=== PATIENT | male | born 1970 | race Caucasian/White ===

== ENCOUNTER 2023-08-29 14:37 | Outpatient (CLI) | payer BC, SELFPAY ==
[2023-08-29 16:05] LABS: Alanine Aminotransferase 38 U/L (6-50); Albumin Level 4.5 g/dL (3.5-5.1); Alkaline Phosphatase 89 U/L (38-126); Anion Gap 6 mmol/L (8-16); Aspartate Amino Transferase 43 U/L (17-59); Bilirubin,Total 1.5 mg/dL (0.2-1.3); Blood Urea Nitrogen 10 mg/dL (9-20); Calcium 9.6 mg/dL (8.4-10.2); Carbon Dioxide 31 mmol/L (22-30); Chloride 97 mmol/L (98-107); Cholesterol 179 mg/dL (0-200); Estimated Glomerular Filt Rate > 60; Glucose 289 mg/dL (65-110); HDL Direct 34 mg/dL; Potassium 3.9 mmol/L (3.4-5.0); Sodium 134 mmol/L (137-145); Triglycerides 337 mg/dL (<150)
[2023-08-29 16:16] LABS: LDL Cholesterol Direct 110 mg/dL
[2023-08-29 16:19] LABS: Basophils Absolute Auto 0.1 K/mm3 (0.0-0.1); Basophils Percent Auto 0.7 % (0.2-1.2); Eosinophils Absolute Auto 0.1 K/mm3 (0-0.3); Eosinophils Percent Auto 1.4 % (0-4.4); Hematocrit 50.1 % (42.0-52.0); Hemoglobin 17.4 g/dL (14.0-18.0); Immature Granulocyte Absolute 0.03 K/mm3 (0.00-0.031); Immature Granulocyte Percent A 0.4 % (0-0.5); Lymphocytes Absolute Auto 1.54 K/mm3 (0.9-3.2); Lymphocytes Percent Auto 21.4 % (18.3-44.2); Mean Corpuscular HGB Conc 34.7 g/dl (32-36); Mean Corpuscular Hemoglobin 29.7 pg (26-34); Mean Corpuscular Volume 85.5 fl (80-100); Mean Platelet Volume 10.7 fl (7.4-10.4); Monocytes Absolute Auto 0.4 K/mm3 (0.1-0.6); Monocytes Percent Auto 5.8 % (2.6-8.5); Neutrophils Absolute Auto 5.1 K/mm3 (1.3-6.7); Neutrophils Percent Auto 70.3 % (45.5-73.1); Platelet Count Result 162 k/mm3 (150-375); Red Blood Count 5.86 M/mm3 (4.6-6.20); Red Cell Distribution Width 12.3 % (11.5-14.5); White Blood Count 7.2 K/mm3 (4.5-10.0)
[2023-08-29 16:46] LABS: Hemoglobin A1C 9.7 % (<5.7)
== END 2023-08-29 14:38 | disposition home or self-care (01) ==
PROVIDERS: PCP Emergency Medicine; Visit Provider Emergency Medicine
DX: E66.9 Obesity, unspecified (principal); I10 Essential (primary) hypertension; R20.2 Paresthesia of skin; M54.50 Low back pain, unspecified
CPT/HCPCS: 36415; 80053; 80061; 82607; 83036; 85025

== ENCOUNTER 2023-08-29 14:57 | Outpatient (CLI) | payer BC, SELFPAY ==
--- NOTE | ~2023-08-29 | XR_ITS ---
Lumbosacral Spine: AP, oblique, and lateral views Clinical History: Pain Findings: The normal lordotic curve is maintained. The vertebral bodies and posterior elements are i ntact. The intervertebral disc spaces are preserved. The sacroiliac joints are normally outlined. Impression: No significant abnormality. Reviewed, dictated and finalized at [facility]. [facility] Impression: No significant abnormality.
== END 2023-08-29 14:58 ==
PROVIDERS: PCP Emergency Medicine; Visit Provider Emergency Medicine
DX: M54.41 Lumbago with sciatica, right side (principal)
CPT/HCPCS: 72110

== ENCOUNTER 2023-09-13 14:22 | Outpatient (CLI) | payer BC, SELFPAY ==
[2023-09-13 19:21] LABS: Creatinine Urine 29.9 mg/dL
[2023-09-13 19:27] LABS: Microalbumin Urine Random 33.5 mg/L (0-16.7)
== END 2023-09-13 14:23 | disposition home or self-care (01) ==
LOC: ANHGOSHLAB 14:23
PROVIDERS: PCP Emergency Medicine; Visit Provider Emergency Medicine
DX: E11.40 Type 2 diabetes mellitus with diabetic neuropathy, unspecified (principal)
CPT/HCPCS: 82043

== ENCOUNTER 2023-10-09 15:30 | Outpatient (RCR) | payer BC, SELFPAY ==
--- NOTE | 2023-09-05 16:51 | OPREHPOC ---
Outpatient Therapy Plan of Care This is a Multidisciplinary Plan of Care that may contain components documented by all disciplines (PT, OT, and ST.) PT Problem 1 PT Problem #1 Knowledge Deficit PT Goal 1 Goal Pt to be IND with issued HEP Target Visit 8 PT Problem 2 PT Problem #2 Pain PT Goal 1 Goal Pt to report pain no greater than 3/10 in the last week. Target Visit 8 PT Goal 2 Goal Pt to report 75% improvement in overall symptoms. Target Visit 8 PT Problem 3 PT Problem #3 Impaired Functional Mobil PT Goal 1 Goal Pt to demonstrates 30lb lift and carry without an increase in pain or compensations. Target Visit 8
--- NOTE | 2023-09-05 16:51 | PTOPEVAL1 ---
Assessment and note entered by Gayathri Bennett, PT, DPT Evaluation Information Assessment Status Evaluation Diagnosis R sided lumbar radiculopathy Onset December Subjective Information Pt reports he had lower lumbar back pain that started in December, he states this progressed to his R buttock. At times he has had his entire R leg go numb. He states without as much pain, his R leg is still numb most of the time. He states it does not feel like his truly limited it just feels like his R leg is a lot heavier. Going up and down stairs is the worst. Reported Pain Level Pain Score 2: Self Report Assessment PT Clinical Summary Sergio presents to therapy today for his initial evaluation with a diagnosis of R sided sciatic pain. Today he demonstrates lumbar paraspinal tightness with palpable muscle spasms, piriformis tightness, and a positive neural tension test. He demonstrates decreased body awareness with functional movement tasks. Skilled therapy services are indicated to address the deficits noted above, to improve movement mechanics, and to return to PLOF. Plan of Care Interventions Electrical Stimulation,Gait Training,Hot Pack/Cold Pack,Manual Therapy,Neuro Re-education,Patient/ Caregiver Educati,Therapeutic Activities, Therapeutic Exercise PT Services Indicated Yes Treatment Frequency and 2x/wk for 8 visits Duration These treatments will address the objective and functional deficits as defined above. The patient will be advanced safely and appropriately in order for the patient to progress towards his/her prior level of function. Additional exercises will be introduced and as well as a comprehensive home exercise program upon discharge, if needed, ?to ensure carryover of functional gains achieved in the clinic. This treatment plan has been reviewed and agreement upon by the patient.
--- NOTE | 2023-09-11 14:17 | PCPTNOTE ---
Patient called to cancel today's appointment.
--- NOTE | 2023-09-18 15:51 | PCPTNOTE ---
Patient cancelled due to ill.
--- NOTE | 2023-09-30 15:36 | PCPTNOTE ---
Patient cancelled due to work schedule conflict
--- NOTE | 2023-10-09 16:26 | PTOPDC ---
Assessment and note entered by Gayathri Bennett, PT, DPT Evaluation Information Assessment Status discharge Diagnosis R sided lumbar radiculopathy Onset December Subjective Information Pt states he is getting his exercises done about 2 times a week. He states he is starting to get feeling back in his R foot but it is not 100%. He reports 60-70% improvement in overall symptoms since starting therapy. He reports pain now only when climbing stairs. Reported Pain Level Pain Score 0: Self Report Assessment PT Clinical Summary Sergio presents to therapy today for his progress report following 5 visits of skilled therapy to treat his diagnosis of R sided sciatic pain. Today he reports 70% improvement in his sensations with a 90% improvement in his pain. He demonstrates improved body awareness and is progressing well towards his goals. He no longer requires skilled therapy services and will be discharged at this time. Plan of Care PT Services Indicated No
== END 2023-10-10 08:10 | disposition home or self-care (01) ==
LOC: ANHGOSHPT 15:30
PROVIDERS: PCP Emergency Medicine; Visit Provider Emergency Medicine
DX: M54.40 Lumbago with sciatica, unspecified side (principal)
CPT/HCPCS: 97110; 97140; 97161; 97530

== ENCOUNTER 2023-10-24 00:42 | Day surgery (SDC) | payer BC, SELFPAY ==
[2023-10-14 12:07] VITALS: BMI 31.6
[2023-10-24 06:11] VITALS: BP 145/82; PULSE 75; RESP 18; TEMP 36.4; O2SAT 100
[2023-10-24] MEDS: LACTATED RINGERS 1,000 ML 150 ML IV CONT (06:23)
[2023-10-24 06:27] LABS: Glucose Point of Care 160 mg/dl (65-105)
--- NOTE | 2023-10-24 07:27 | PM.IMHP ---
H&P: HPI History of Present Illness Date/Time: 10/24/23 07:27 Chief Complaint: Screening for colorectal cancer Narrative: this is a 53-year-old man who presents for colonoscopy. He has never had a colonoscopy before. He denies any hematochezia or melena. He denies any family history of colon cancer. Review of Systems Review of Systems: All systems reviewed & are unremarkable except as noted in HPI and below Constitutional: Constitutional: Denies chills, Denies fever(s), Denies headache(s) and Denies weight loss Eyes: Eyes: Denies change in vision ENT: Denies dizziness, Denies headache(s), Denies neck mass and Denies throat swelling Cardiovascular: Cardiovascular: Denies chest pain, Denies lightheadedness and Denies dyspnea Respiratory: Respiratory: Denies cough, Denies dyspnea and Denies wheezing Gastrointestinal: Gastrointestinal: Denies abdominal pain, Denies change in bowel habits, Denies nausea and Denies vomiting Genitourinary: Genitourinary: Denies hematuria and Denies dysuria Musculoskeletal: Musculoskeletal: Reports as per HPI Integumentary/Breasts: Skin/Breast: Reports as per HPI Neurologic: Denies dizziness and Denies headache(s) Allergic/Immunologic: Allergic/Immunologic: Denies throat swelling and Denies wheezing PMFSH Past Medical History Medical History Allergies Family History Family History Father Diabetes mellitus Hypertension Cerebrovascular accident Mother Cancer Hypertension Thyroid disorder Social History Social History Social History: caffeine-cola coffee occasionally Smoking status: Former smoker Alcohol intake: current Alcohol use details: rarely Substance use: former Substance use type: marijuana Do You Feel Safe in your Home?: Yes Lack of Transportation: No Lack of Food: Never True Current Housing: I Have Housing Concerned About Future Housing: No Difficulty Paying Gas/Electric Bills: No Difficulty Paying for Meds: No Currently Unemployed: No Education: Trade/Vocational Certificate Difficulty w/ Childcare or Family Care: No Living arrangements: with friend(s) 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: occupation 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 Gender identity (if verbalized by the patient): Male Sexual Orientation (if Verbalized by the Patient): Straight or Heterosexual Spiritual care concerns: No Agree to blood products: No Meds Home Medications and Allergies Home Medications Medication Instructions Recorded Confirmed Type lisinopril 20 1 tablet PO DAILY #30 tabs 08/29/23 10/14/23 Rx mg-hydrochlorothiazide 12.5 mg tablet atorvastatin 40 mg tablet 40 mg PO QHS #90 tabs 09/13/23 10/14/23 Rx blood sugar diagnostic (Sawyer Link #100 ea 09/13/23 09/13/23 Rx Glucose Test Strip) blood-glucose meter (Sawyer Link #1 ea 09/13/23 09/13/23 Rx Glucose Monitoring System) lancets 30 gauge #100 ea 09/13/23 09/13/23 Rx metformin 750 mg tablet,extended 750 mg PO BID #180 tabs 09/13/23 10/14/23 Rx release 24 hr pen needle, diabetic 31 gauge x #100 ea 09/13/23 09/13/23 Rx 5/16 (CareTouch Pen Needle) insulin glargine 100 unit/mL (3 10 unit (0.1 mL) subcut QPM #3 mL 10/14/23 10/14/23 Rx mL) subcutaneous pen (Basaglar KwikPen U-100 Insulin) Allergies Allergy/AdvReac Type Severity Reaction Status Date / Time Cephalosporins Allergy Mild Joint Pain Verified 10/24/23 06:09 Vital Signs Vital Signs - 24 hr 10/24/23 06:11 Temperature 36.4 C Pulse Rate 75 Respiratory Rate 18 Blood Pressure 145/82 H Pulse Oximetry 100 Oxygen Delivery Room Air Exam Const: General: no acute distress and alert Orientation/consciousness: patient oriented x3 HENMT: Head: normocephalic and atraumatic Ears: hearing grossly normal bilaterally Face/Nose/S
--- NOTE | 2023-10-24 07:30 | WPDANESEPPF ---
Anes - Initial Pre Proc Eval Procedure: Operation Date: 10/24/23 07:30 Proposed Procedures p Screening Colonoscopy - Sukumar Cunha DO Date/Time: 10/24/23 07:30 Surgeon: Sukumar Cunha DO Pre Op Diagnosis: neoplasm screening Patient Data Age: 53 Gender: M Height: 1.78 m Weight: 94.7 kg Last Vital Signs Temp 97.6 F 10/24/23 06:11 Pulse 75 10/24/23 06:11 Resp 18 10/24/23 06:11 BP 145/82 H 10/24/23 06:11 Pulse Ox 100 10/24/23 06:11 O2 Del Method Room Air 10/24/23 06:11 Allergies Allergy/AdvReac Type Severity Reaction Status Date / Time Cephalosporins Allergy Mild Joint Pain Verified 10/24/23 06:09 Home Medications Medication Instructions Recorded Confirmed Type lisinopril 20 1 tablet PO DAILY #30 tabs 08/29/23 10/14/23 Rx mg-hydrochlorothiazide 12.5 mg tablet atorvastatin 40 mg tablet 40 mg PO QHS #90 tabs 09/13/23 10/14/23 Rx blood sugar diagnostic (Sawyer Link #100 ea 09/13/23 09/13/23 Rx Glucose Test Strip) blood-glucose meter (Sawyer Link #1 ea 09/13/23 09/13/23 Rx Glucose Monitoring System) lancets 30 gauge #100 ea 09/13/23 09/13/23 Rx metformin 750 mg tablet,extended 750 mg PO BID #180 tabs 09/13/23 10/14/23 Rx release 24 hr pen needle, diabetic 31 gauge x #100 ea 09/13/23 09/13/23 Rx 5/16 (CareTouch Pen Needle) insulin glargine 100 unit/mL (3 10 unit (0.1 mL) subcut QPM #3 mL 10/14/23 10/14/23 Rx mL) subcutaneous pen (Basaglar KwikPen U-100 Insulin) Laboratory Tests 10/24/23 06:20 POC Capillary Glucose 160 H mg/dl (65-105) Patient hx anesthesia problems: none Family hx anesthesia problems: none Results Review: All pre-operative results and documents have been reviewed as part of the pre-operative evaluation. [facility] Past Medical History Medical History Allergies Family History Family History Father Diabetes mellitus Hypertension Cerebrovascular accident Mother Cancer Hypertension Thyroid disorder Social History Social History Social History: caffeine-cola coffee occasionally Smoking status: Former smoker Alcohol intake: current Alcohol use details: rarely Substance use: former Substance use type: marijuana Do You Feel Safe in your Home?: Yes Lack of Transportation: No Lack of Food: Never True Current Housing: I Have Housing Concerned About Future Housing: No Difficulty Paying Gas/Electric Bills: No Difficulty Paying for Meds: No Currently Unemployed: No Education: Trade/Vocational Certificate Difficulty w/ Childcare or Family Care: No Living arrangements: with friend(s) 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: occupation 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 Gender identity (if verbalized by the patient): Male Sexual Orientation (if Verbalized by the Patient): Straight or Heterosexual Spiritual care concerns: No Agree to blood products: No Anes - Eval Final PreProcedure Day of Procedure 10/24/23 07:30 Patient weight: obese Heart: regular rate and rhythm Lungs: clear to auscultation Airway: Mallampati scale class II Neurological: alert and oriented Last oral intake: >/= 8 hours ASA classification: III Emergent: no Anesthetic plan: proceed Anesthesia type and monitoring: general GIVS and standard monitoring Results Review: All pre-operative results and documents have been reviewed as part of the pre-operative evaluation. Informed Consent: The patient's anesthetic plan and its attendant risks and benefits were discussed with the patient/family/POA. Questions were solicited and answers provided to the satisfaction of the patient/family/POA.
[2023-10-24 07:50] VITALS: BP 147/74; PULSE 83; RESP 26; O2SAT 100
[2023-10-24 08:00] VITALS: BP 124/79; PULSE 72; RESP 20; O2SAT 100
[2023-10-24 08:07] LABS: Glucose Point of Care 149 mg/dl (65-105)
[2023-10-24 08:10] VITALS: BP 144/94; PULSE 72; RESP 22; O2SAT 100
== END 2023-10-24 08:27 | disposition home or self-care (01) ==
PROVIDERS: PCP Emergency Medicine; Visit Provider Surgery
PROC: 0DJD8ZZ Inspection of Lower Intestinal Tract, Via Natural or Artificial Opening Endoscopic (ICD-10-PCS; CPT 45378; principal; 2023-10-24 07:30)
DX: Z12.11 Encounter for screening for malignant neoplasm of colon (principal); F12.90 Cannabis use, unspecified, uncomplicated; E66.9 Obesity, unspecified; Z68.30 Body mass index [BMI] 30.0-30.9, adult; Z79.84 Long term (current) use of oral hypoglycemic drugs; Z79.4 Long term (current) use of insulin; Z87.891 Personal history of nicotine dependence; Z80.9 Family history of malignant neoplasm, unspecified; Z82.49 Family history of ischemic heart disease and other diseases of the circulatory system
CPT/HCPCS: 45378; 82948; J2001; J2704; J7120

== ENCOUNTER 2023-10-29 20:58 | Observation (INO) | payer BC, SELFPAY ==
--- NOTE | ~2023-10-29 | CT_ITS ---
CT of the Abdomen and Pelvis: Indication: Abdominal pain Technique: 2.5 mm axial scans were obtained through the abdomen and pelvis following intravenous adm inistration of 100 cc of Omnipaque 350. Dose reduction technique was used on this scan by utilizing a utomated exposure control and iterative reconstruction technique. The dose-length product (DLP) was 1 285.09 mGy-cm. Findings: Scans through the lung bases are unremarkable. The liver, pancreas, gallbladder, adrenals and kidneys are within normal limits. Spleen is enlarged, measuring 17.4 cm in craniocaudal length. No evidence of aortic aneurysm. No lymphadenopathy. There is marked wall thickening of the appendix and cecum with extensive pericecal/periappendiceal in flammatory change. No definite drainable abscess seen. No definite free air is seen. No bowel obstruc tion evident. Images through the pelvis were performed. Urinary bladder unremarkable. Prostate gland enlarged. Trac e pelvic ascites present. Impression: Marked wall thickening of the appendix and cecum, with extensive surrounding inflammatory change. Karmen gnostic considerations include acute acute appendicitis versus possibly colitis. No abscess or free a ir evident. Reviewed, dictated and finalized at [facility]. Impression: Marked wall thickening of the appendix and cecum, with extensive surrounding in flammatory change. Diagnostic considerations include acute acute appendicitis v ersus possibly colitis. No abscess or free air evident.
[2023-10-29 21:02] VITALS: BP 141/104; PULSE 130; RESP 15; TEMP 36.9; O2SAT 98
[2023-10-29 21:15] LABS: Glucose Point of Care 175 mg/dl (65-105)
[2023-10-29 21:18] LABS: Basophils Percent Auto 0.2 % (0.2-1.2); Eosinophils Percent Auto 0.1 % (0-4.4); Immature Granulocyte Absolute 0.08 K/mm3 (0.00-0.031); Immature Granulocyte Percent A 0.4 % (0-0.5); Lymphocytes Absolute Auto 1.31 K/mm3 (0.9-3.2); Mean Corpuscular HGB Conc 36.4 g/dl (32-36); Mean Corpuscular Hemoglobin 29.9 pg (26-34); Mean Corpuscular Volume 82.2 fl (80-100); Mean Platelet Volume 9.9 fl (7.4-10.4); Monocytes Absolute Auto 1.3 K/mm3 (0.1-0.6); Monocytes Percent Auto 6.9 % (2.6-8.5); Neutrophils Absolute Auto 15.9 K/mm3 (1.3-6.7); Neutrophils Percent Auto 85.4 % (45.5-73.1); Platelet Count Result 196 k/mm3 (150-375); Red Blood Count 5.35 M/mm3 (4.6-6.20); White Blood Count 18.6 K/mm3 (4.5-10.0)
[2023-10-29 21:30] LABS: Alanine Aminotransferase 31 U/L (6-50); Albumin Level 4.7 g/dL (3.5-5.1); Alkaline Phosphatase 84 U/L (38-126); Anion Gap 11 mmol/L (4-12); Aspartate Amino Transferase 19 U/L (17-59); Bilirubin,Total 2.4 mg/dL (0.2-1.3); Blood Urea Nitrogen 10 mg/dL (9-20); Calcium 9.7 mg/dL (8.4-10.2); Carbon Dioxide 22 mmol/L (22-30); Chloride 99 mmol/L (98-107); Estimated Glomerular Filt Rate > 60; Glucose 184 mg/dL (65-110); Lipase 31 U/L (23-300); Potassium 3.7 mmol/L (3.4-5.0); Sodium 132 mmol/L (137-145)
[2023-10-29 22:39] VITALS: BP 140/88; PULSE 119; RESP 23; O2SAT 98
[2023-10-29 22:46] VITALS: BP 135/86; PULSE 118; RESP 15; O2SAT 97
[2023-10-29 22:56] LABS: Appearance Urine Clear (Clear); Bacteria Urine None Seen /hpf; Bilirubin Urine Negative (Negative); Blood Urine 3+ (Negative); Color Urine Yellow (Yellow); Glucose Urine UA Trace mg/dL (Negative); Ketones Urine 2+ mg/dL (Negative); Leukocyte Esterase Ur Negative LEU/UL (Negative); Nitrate Urine Negative (Negative); Protein Urine 1+ mg/dL (Negative); Specific Grav Ur 1.013 (1.001-1.035); Squamous Epithelial Cell Urine None Seen /hpf (Few); WBC Urine 0-5 /hpf (0-3); pH Urine 5.5 (5.0-9.0)
[2023-10-29 23:01] VITALS: BP 137/93; PULSE 117; RESP 20; O2SAT 95
[2023-10-29 23:11] LABS: Add Urine Microscopic? YES
--- NOTE | 2023-10-29 23:21 | PC.NURSE ---
care and report given to JIM Robertson. all questions answered.
[2023-10-30] VITALS (18 sets, daily range): BP systolic 113–139; BP diastolic 61–83; PULSE 80–112; RESP 14–20; TEMP 36.4–37; O2SAT 93–100; BMI 30.6
[2023-10-30] MEDS: KETOROLAC 15 MG/ML VIAL (*BKC) IV PUSH (00:59)
[2023-10-30] MEDS: HYDROmorphone HCL INJ (*CRX) 1 MG/ML SYR 0.5 MG IV PUSH ×2 (01:00→05:42)
[2023-10-30] MEDS: SODIUM CHLORIDE 0.9% IV 3,000 ML 999 ML IV CONT (01:00)
--- NOTE | 2023-10-30 01:08 | ED.GENADULT ---
HPI - General Adult General Chief complaint: Abdominal Pain Stated complaint: abd pain, n,v,d. Time Seen by Provider: 10/29/23 23:05 History of Present Illness HPI narrative: This is a 53-year-old male with a history of hypertension and diabetes presenting for abdominal pain. Last night he developed diffuse abdominal pain that has localized to his right lower quadrant. It is associated with fevers nausea vomiting and diarrhea. No urinary symptoms chest pain difficulty breathing. Related Data Allergies Allergy/AdvReac Type Severity Reaction Status Date / Time Cephalosporins Allergy Mild Joint Pain Verified 10/24/23 06:09 [facility] Past Medical History Medical History Allergies Diabetes mellitus with diabetic neuropathy, without long-term current use of insulin Family History Family History Father Diabetes mellitus Hypertension Cerebrovascular accident Mother Cancer Hypertension Thyroid disorder Social History Social History Social History: caffeine-cola coffee occasionally Smoking status: Former smoker Alcohol intake: current Alcohol use details: rarely Substance use: former Substance use type: marijuana Do You Feel Safe in your Home?: Yes Lack of Transportation: No Lack of Food: Never True Current Housing: I Have Housing Concerned About Future Housing: No Difficulty Paying Gas/Electric Bills: No Difficulty Paying for Meds: No Currently Unemployed: No Education: Trade/Vocational Certificate Difficulty w/ Childcare or Family Care: No Living arrangements: with friend(s) 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 Head: atraumatic. EYES: EOMI, NOSE: Atraumatic NECK: Trachea midline RESPIRATORY: No increased rate of breathing CARDIOVASCULAR: RRR, ABDOMINAL: Abdomen is diffusely tender with no rigidity. Most tenderness is in the right lower quadrant. MUSCULOSKELETAl: No obvious deformities NEURO: Alert. Moving 4/4 extremities SKIN:: Warm, dry. Normal color PSYCHIATRIC: Normal affect Course Vital Signs Vital signs: Vital Signs Temperature 98.5 F 10/29/23 21:02 Pulse Rate 130 H 10/29/23 21:02 Respiratory Rate 15 10/29/23 21:02 Blood Pressure 141/104 H 10/29/23 21:02 Pulse Oximetry 98 10/29/23 21:02 Oxygen Delivery Room Air 10/29/23 21:02 Temperature 98.5 F 10/29/23 21:02 Pulse Rate 112 H 10/30/23 01:11 Respiratory Rate 20 10/30/23 01:11 Blood Pressure 136/82 10/30/23 01:11 Pulse Oximetry 96 10/30/23 01:11 Oxygen Delivery Room Air 10/29/23 21:02 Medical Decision Making MDM Narrative Medical decision making narrative: -Course: 53-year-old male presenting with diffuse abdominal pain localized quadrant. CT showed acute appendicitis without abscess or perforation. Patient given fluid resuscitation. He has allergy to cephalosporins although he does not remember the specifics. Started on Levaquin and metronidazole. Dr. Cunha consulted and is aware of the patient. Patient to be admitted to the hospitalist. -DDX includes but is not limited to: Appendicitis, colitis, gallbladder disease, gastroenteritis -Co-morbidities complicating care: hypertension, diabetes -Independent interpretation of studies: white count 18. rest work within normal limits. CT showed wall thickening inflammatory changes right lower quadrant center the appendix and cecum. Findings consistent with acute appendicitis without appendiceal abscess. -Discussion of Management/Consultants: Joaquim Johnson
--- NOTE | 2023-10-30 01:42 | ECG_ITS ---
SEE SCANNED COPY FOR CONFIRMED REPORT. MTDD
[2023-10-30] MEDS: metroNIDAZOLE 500 MG/ISO 100ML 500 MG/100 ML BAG 100 MG IVPB ×3 (01:53→16:51)
[2023-10-30 02:20] LABS: Lactic Acid Reflex 0.7 mmol/L (0.7-2.0)
[2023-10-30] MEDS: LACTATED RINGERS 1,000 ML 125 ML IV CONT (02:50)
[2023-10-30] MEDS: levoFLOXacin 750 MG/D5W 150 ML 750 MG/150 ML BAG 100 MG IVPB (02:51)
--- NOTE | 2023-10-30 03:02 | ADMGEN ---
This patient, Sergio Carlton, was admitted to [facility] Surg Room 321-. Patient/family oriented to hospital policies and general routines including ID bracelet, bed and alarms, visiting hours, pain management, procedures, bathroom and other care routines, personal items, smoking policy, room service/diet, and visiting hours. Information on how to activate the Rapid Response Team has been discussed. Patient/Family are encouraged to report perceived risks to care and to ask questions if they do not understand what they are told or what they should do.
--- NOTE | 2023-10-30 07:17 | PM.IMHP ---
H&P: HPI History of Present Illness Date/Time: 10/30/23 07:17 Chief Complaint: RLQ abdominal pain Narrative: 53 year old male with past medical history of hypertension and diabetes presents to the hospital for right lower quadrant pain. Patient states his symptoms started 2 days ago and he originally thought they were related to gas. He started having diarrhea, but related this to a metformin side effect. However the general abdominal pain continued to progressed to a severe pain to the right lower quadrant. He states it would occasionally radiate to his right lower back. He notes that yesterday he developed a fever of 101.5 on his home thermometer. He also noted several episodes of diarrhea and vomiting of bile which prompted him to come to the ED. ED workup: - CBC with leukocytosis of 18.6. CMP with mild hyponatremia and glucose of 184. Lipid panel WNL. Lactic Acid 0.7. Elevated total bilirubin 2.4. Lipase WNL. Urine unremarkable. CT abdomen/pelvis marked wall thickening of the appendix and cecum, with extensive surrounding inflammatory change. Diagnostic considerations include acute acute appendicitis versus possibly colitis. No abscess or free air evident. Surgery consulted. Patient started on 3L NS IV, antibiotics and analgesics. Review of Systems Review of Systems: All systems reviewed & are unremarkable except as noted in HPI and below PMFSH Past Medical History Medical History Allergies Diabetes mellitus with diabetic neuropathy, without long-term current use of insulin Hypertension Obesity (BMI 30.0-34.9) Surgical History Surgical History No significant past surgical history Family History Family History Father Diabetes mellitus Hypertension Myocardial infarct Mother Cancer Hypertension Thyroid disorder Other Cerebrovascular accident Social History Social History Social History: caffeine-cola coffee occasionally Smoking status: Never smoker Alcohol intake: never Alcohol use details: rarely Substance use: never Substance use type: marijuana Do You Feel Safe in your Home?: Yes Lack of Transportation: No Lack of Food: Never True Current Housing: I Have Housing Concerned About Future Housing: No Difficulty Paying Gas/Electric Bills: No Difficulty Paying for Meds: No Currently Unemployed: No Education: Associate Degree Difficulty w/ Childcare or Family Care: No Living arrangements: with friend(s) 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: occupation 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 Gender identity (if verbalized by the patient): Male Sexual Orientation (if Verbalized by the Patient): Straight or Heterosexual Spiritual care concerns: No Agree to blood products: No Meds Home Medications and Allergies Home Medications Medication Instructions Recorded Confirmed Type atorvastatin 40 mg tablet 40 mg PO QHS #90 tabs 09/13/23 10/30/23 Rx blood sugar diagnostic (Sawyer Link #100 ea 09/13/23 10/30/23 Rx Glucose Test Strip) blood-glucose meter (Sawyer Link #1 ea 09/13/23 10/30/23 Rx Glucose Monitoring System) lancets 30 gauge #100 ea 09/13/23 10/30/23 Rx metformin 750 mg tablet,extended 750 mg PO BID #180 tabs 09/13/23 10/30/23 Rx release 24 hr pen needle, diabetic 31 gauge x #100 ea 09/13/23 10/30/23 Rx 5/16 (CareTouch Pen Needle) insulin glargine 100 unit/mL (3 10 unit subcut HS 10/30/23 10/30/23 History mL) subcutaneous pen (Basaglar KwikPen U-100 Insulin) lisinopril 20 1 tablet PO DAILY #30 tabs 10/30/23 Rx mg-hydrochlorothiazide 12.5 mg tablet Allergies Allergy/AdvReac Type Severity Reaction Status Date / Time Cephalosporins Allergy Mild Joint Pain Verified 10/30/23 03:11 Vital Signs Yaquelin
[2023-10-30 07:57] LABS: Basophils Percent Auto 0.3 % (0.2-1.2); Eosinophils Percent Auto 0.3 % (0-4.4); Hematocrit 37.2 % (42.0-52.0); Hemoglobin 12.7 g/dL (14.0-18.0); Immature Granulocyte Absolute 0.08 K/mm3 (0.00-0.031); Immature Granulocyte Percent A 0.6 % (0-0.5); Lymphocytes Absolute Auto 1.08 K/mm3 (0.9-3.2); Lymphocytes Percent Auto 8.6 % (18.3-44.2); Mean Corpuscular HGB Conc 34.1 g/dl (32-36); Mean Corpuscular Hemoglobin 29.7 pg (26-34); Mean Corpuscular Volume 86.9 fl (80-100); Mean Platelet Volume 9.8 fl (7.4-10.4); Monocytes Absolute Auto 0.9 K/mm3 (0.1-0.6); Monocytes Percent Auto 7.1 % (2.6-8.5); Neutrophils Absolute Auto 10.5 K/mm3 (1.3-6.7); Neutrophils Percent Auto 83.1 % (45.5-73.1); Platelet Count Result 146 k/mm3 (150-375); Red Blood Count 4.28 M/mm3 (4.6-6.20); Red Cell Distribution Width 12.2 % (11.5-14.5); White Blood Count 12.6 K/mm3 (4.5-10.0)
[2023-10-30 08:00] LABS: Alanine Aminotransferase 22 U/L (6-50); Albumin Level 3.6 g/dL (3.5-5.1); Alkaline Phosphatase 56 U/L (38-126); Anion Gap 6 mmol/L (4-12); Aspartate Amino Transferase 14 U/L (17-59); Bilirubin,Total 1.8 mg/dL (0.2-1.3); Blood Urea Nitrogen 13 mg/dL (9-20); Calcium 8.3 mg/dL (8.4-10.2); Carbon Dioxide 25 mmol/L (22-30); Chloride 104 mmol/L (98-107); Estimated CRCL calculation 88 ml/min; Estimated Glomerular Filt Rate > 60; Glucose 165 mg/dL (65-110); Potassium 4.2 mmol/L (3.4-5.0); Sodium 135 mmol/L (137-145)
--- NOTE | 2023-10-30 09:48 | PM.CNGS ---
Assessment and Plan Assessment and plan (1) Acute appendicitis: Code(s): K35.80 - Unspecified acute appendicitis Status: Acute Assessment and Plan: CT scan reviewed and discussed with the patient. There is evidence of acute appendicitis with also some wall thickening of the cecum. No perforation or abscess evident on CT. Clinically, the patients exam and presentation correlate with appendicitis. We discussed both nonoperative treatment with IV antibiotics/monitoring versus proceeding with surgery. We discussed the risks of recurrence or treatment failure with the option of antibiotic therapy. I also discussed the details of a laparoscopic appendectomy, possible open, under general anesthesia that would be done by Dr. Cunha. Description of the procedure, risks, benefits, alternatives, and expected recovery were discussed. He agrees to proceed with surgery. Keep NPO and continue IV antibiotics, IV fluids, and analgesics as needed pre-operatively. He has been added to the surgery schedule for today. (2) Diabetes mellitus with diabetic neuropathy, without long-term current use of insulin: Code(s): E11.40 - Type 2 diabetes mellitus with diabetic neuropathy, unspecified Status: Acute (3) Hypertension: Code(s): I10 - Essential (primary) hypertension Status: Chronic (4) Obesity (BMI 30.0-34.9): Code(s): E66.9 - Obesity, unspecified Status: Chronic Plan I have discussed the patient's case and plan of care with Dr. Cunha. History of Present Illness Consult details Consult date: 10/30/23 Reason for consult: other (Acute appendicitis) Requesting physician: Yunior Jeter MD Narrative: This is a 53-year-old man with insulin-dependent type 2 diabetes mellitus and hypertension, who presented to the ER last night with complaints of abdominal pain. He reports 2 days ago noticing some mild cramping upper abdominal pain. He developed diarrhea and thought it was related to a GI illness. Overnight, he also began vomiting, which she reports was bilious appearing. Yesterday, he called off work and his abdominal pain continued to become more severe throughout the day. It began to then localize into the right lower quadrant by the afternoon. His abdominal pain became more severe and he noticed abdominal tenderness, therefore he decided to come into the ER for evaluation. [place] [address], lactic acid 0.7. CT scan of the abdomen and pelvis showed marked wall thickening of the appendix and cecum, with extensive surrounding inflammatory change. Diagnostic considerations include acute appendicitis versus possibly colitis. No abscess or free air evident. He was admitted to the hospitalist service and started on IV levofloxacin and metronidazole. Our service was consulted for the acute appendicitis. He is seen on the medical floor. He reports most of his abdominal pain is now in the right lower quadrant, although feels like it radiates across his entire abdomen. Pain is aggravated by movement and palpation. He recently had a colonoscopy last week by Dr. Cunha that was normal. No previous abdominal surgeries. Review of Systems Review of Systems: All systems reviewed & are unremarkable except as noted in HPI and below PMFSH Past Medical History Medical History Allergies Diabetes mellitus with diabetic neuropathy, without long-term current use of insulin Hypertension Obesity (BMI 30.0-34.9) Surgical History Surgical History No significant past surgical history Family History Family History Father Diabetes mellitus Hypertension Myocardial infarct Mother Cancer Hypertension Thyroid disorder Other Cerebrovascular accident Social History Social History (Reviewed 10/30/23 @ 09:54 by Oriana Zarate
[2023-10-30 11:15] LABS: Glucose Point of Care 132 mg/dl (65-105)
[2023-10-30] MEDS: HYDROmorphone HCL INJ (*CRX) 1 MG/ML SYR IV PUSH ×2 (11:56→16:50)
[2023-10-30 12:36] LABS: Glucose Point of Care 196 mg/dl (65-105)
--- NOTE | 2023-10-30 13:06 | WPDHPUPDATE1 ---
History and Physical Update Update Date/Time: 10/30/23 13:06 History and Physical has been reviewed, including an updated exam of the patient. There are NO changes in the patient's condition. Risks, benefits, and alternatives have been discussed and questions answered. Patient agrees to proceed with procedure.
[2023-10-30] MEDS: LACTATED RINGERS 1,000 ML 30 ML IV CONT ×3 (13:30→15:31)
--- NOTE | 2023-10-30 13:58 | WPDANESEPPF ---
Anes - Initial Pre Proc Eval Procedure: Operation Date: 10/30/23 15:00 Proposed Procedures p Laparoscopic Appendectomy, Possible Open - Sukumar Cunha DO Date/Time: 10/30/23 13:58 Surgeon: Isamar March DO Pre Op Diagnosis: Appendicitis Patient Data Age: 53 Gender: M Height: 1.78 m Weight: 96.8 kg Last Vital Signs Temp 36.6 C 10/30/23 05:43 Pulse 98 10/30/23 05:43 Resp 18 10/30/23 05:43 BP 127/73 10/30/23 05:43 Pulse Ox 93 10/30/23 07:20 O2 Del Method Room Air 10/30/23 08:40 Allergies Allergy/AdvReac Type Severity Reaction Status Date / Time Cephalosporins Allergy Mild Joint Pain Verified 10/30/23 03:11 Home Medications Medication Instructions Recorded Confirmed Type atorvastatin 40 mg tablet 40 mg PO QHS #90 tabs 09/13/23 10/30/23 Rx blood sugar diagnostic (Sawyer Link #100 ea 09/13/23 10/30/23 Rx Glucose Test Strip) blood-glucose meter (Sawyer Link #1 ea 09/13/23 10/30/23 Rx Glucose Monitoring System) lancets 30 gauge #100 ea 09/13/23 10/30/23 Rx metformin 750 mg tablet,extended 750 mg PO BID #180 tabs 09/13/23 10/30/23 Rx release 24 hr pen needle, diabetic 31 gauge x #100 ea 09/13/23 10/30/23 Rx 5/16 (CareTouch Pen Needle) insulin glargine 100 unit/mL (3 10 unit subcut HS 10/30/23 10/30/23 History mL) subcutaneous pen (Basaglar KwikPen U-100 Insulin) lisinopril 20 1 tablet PO DAILY #30 tabs 10/30/23 Rx mg-hydrochlorothiazide 12.5 mg tablet Laboratory Tests 10/29/23 10/29/23 10/29/23 21:10 21:12 22:44 WBC 18.6 H K/mm3 (4.5-10.0) RBC 5.35 M/mm3 (4.6-6.20) Hgb 16.0 g/dL (14.0-18.0) Hct 44.0 % (42.0-52.0) MCV 82.2 fl (80-100) MCH 29.9 pg (26-34) MCHC 36.4 H g/dl (32-36) RDW 12.0 % (11.5-14.5) Plt Count 196 k/mm3 (150-375) MPV 9.9 fl (7.4-10.4) Immature Gran % (Auto) 0.4 % (0-0.5) Neut % (Auto) 85.4 H % (45.5-73.1) Lymph % (Auto) 7.0 L % (18.3-44.2) Winston % (Auto) 6.9 % (2.6-8.5) Eos % (Auto) 0.1 % (0-4.4) Baso % (Auto) 0.2 % (0.2-1.2) Lymph # (Auto) 1.31 K/mm3 (0.9-3.2) Winston # (Auto) 1.3 H K/mm3 (0.1-0.6) Eos # (Auto) 0.0 K/mm3 (0-0.3) Baso # (Auto) 0.0 K/mm3 (0.0-0.1) Abs Immat Gran (auto) 0.08 H K/mm3 (0.00-0.031) Absolute Neuts (auto) 15.9 H K/mm3 (1.3-6.7) Absolute Nucleated RBC 0.000 K/mm3 (0.0-0.012) Nucleated RBC % 0.0 % (0.0-0.2) Sodium 132 L mmol/L (137-145) Potassium 3.7 mmol/L (3.4-5.0) Chloride 99 mmol/L (98-107) Carbon Dioxide 22 mmol/L (22-30) Anion Gap 11 mmol/L (4-12) BUN 10 mg/dL (9-20) Creatinine 0.90 mg/dL (0.7-1.3) Estim Creat Clear Calc Not Reportable Estimated GFR > 60 (59 - ) Glucose 184 H mg/dL (65-110) POC Capillary Glucose 175 H mg/dl (65-105) Lactic Acid Calcium 9.7 mg/dL (8.4-10.2) Total Bilirubin 2.4 H mg/dL (0.2-1.3) AST 19 U/L (17-59) ALT 31 U/L (6-50) Alkaline Phosphatase 84 U/L (38-126) Total Protein 8.0 g/dL (6.3-8.2) Albumin 4.7 g/dL (3.5-5.1) Lipase 31 U/L (23-300) Urine Color Yellow (Yellow) Urine Appearance Clear (Clear) Urine pH 5.5 (5.0-9.0) Ur Specific Newberg 1.013 (1.001-1.035) Urine Protein 1+ H mg/dL (Negative) Urine Glucose (UA) Trace H mg/dL (Negative) Urine Ketones 2+ H mg/dL (Negative) Ur Blood (Man) 3+ H (Negative) Urine Nitrate Negative (Negative) Urine Bilirubin Negative (Negative) Urine Urobilinogen 1.0 mg/dL (<2.0) Leukocy
[2023-10-30] MEDS: BUPIVACAINE/EPINEPHRINE 0.5% 50 ML VIAL 30 ML INFILTRATE (15:00)
--- NOTE | 2023-10-30 15:35 | W.PM.PROC2 ---
Procedure Note - Detailed Date of Procedure 10/30/23 Pre-op Diagnosis Acute Appendicitis Post-op Diagnosis Same (Acute appendicitis with perforation and gangrene) Procedure Performed Laparoscopic appendectomy Surgeon Sukumar Cunha DO Anesthesia General and Local (0.5% bupivicaine with epinephrine) Indications 53-year-old man who presents to the emergency department with right lower quadrant pain. He was noted to have an elevated white blood count CT showed evidence of acute appendicitis. He was admitted and started on broad-spectrum IV antibiotics. Discussions were made with the patient about treatment options and decision was made to proceed with laparoscopic appendectomy, possible open. Findings Laparoscopic appendectomy was performed. The patient was found to have intense inflammatory reaction around base of the cecum and appendix. There was part of the terminal ileum that was adherent over the appendix as well as several epiploic appendages from the sigmoid colon. The base of the appendix appeared gangrenous and perforated. I did not see any evidence abscess. I was able to get a stapler across the appendix just proximal to where the gangrenous portion was found. Appendix was removed and sent to the lab for pathology. No other intra-abdominal abnormalities were noted. Description of Procedure Procedure as well as risks, benefits, and alternatives were explained to the patient. The patient agreed to proceed. Written consent was obtained and placed in chart prior to procedure. The patient was brought back to surgical suite. He was placed supine on operating table. Time-out was done to confirm the patient and procedure. The patient was then intubated by the Anesthesia Department. his abdomen was prepped and draped in sterile fashion using chlorhexidine prep. A 5 mm incision was made just to the left of the patient's umbilicus and a 5 mm Optiview trocar was advanced through the abdominal layers under direct visualization. Once inside the peritoneal cavity, carbon dioxide insufflation was used to create a pneumoperitoneum. The camera was inserted and the abdomen was inspected. No immediate abnormalities were identified. The patient was then placed in slight Trendelenburg position and rotated to the left. A 5 mm incision was made in the suprapubic region in midline and a 5 mm trocar was inserted under direct visualization. A 12 mm incision was made in the left lower quadrant and a 12 mm trocar was inserted under direct visualization. The right lower quadrant was carefully inspected. The cecum was identified and then this was traced back to the appendix. The appendix was identified and grasped at the mesoappendix and lifted anteriorly. Careful blunt dissection was carried out at the base of the appendix through the mesoappendix using a [place] grasper. An Endo-SHANNAN 45 mm blue load stapler was then advanced across the base of the appendix and clamped and fired. A white reload was then clamped across the mesoappendix and fired. This freed up our appendix completely. It was then placed in an EndoCatch bag and removed through the left lower quadrant port. The staple lines were then inspected. Hemostasis appeared adequate and the staple lines appeared secure. The area was then irrigated with sterile saline. The pelvis was then carefully inspected and irrigated with sterile saline as well and the remainder of the abdomen was carefully inspected. The patient was then flattened out in bed. One final inspection was made around the abdominal cavity and no other abnormalities were seen. The left lower quadrant port was removed and a Ok-Jocelin cone was used to approximate the fascia with an 0 Vicryl simple interrupted suture. The remaining ports were then removed under direct visualization. The camera was removed and the pneumoperitoneum was released. 0.5% bupivacaine with epinephrine was infiltrated locally around each of the incisions.
[2023-10-30 15:39] LABS: Glucose Point of Care 143 mg/dl (65-105)
--- NOTE | 2023-10-30 16:25 | PC.NURSE ---
Returned from OR per bed at 1625. Report received from JIM Jackson.
[2023-10-30 18:38] LABS: Glucose Point of Care 202 mg/dl (65-105)
[2023-10-30] MEDS: INSULIN ASPART (*BKC) 100 UNITS/ML SUB-Q ×2 (18:44→20:28)
--- NOTE | 2023-10-30 19:09 | PC.NURSE ---
On 10/30/23, the SNACK BAR CASHIER, sIis, provided care and [facility]. I have reviewed the SNACK BAR CASHIER's documentation and agree with the findings.
[2023-10-30] MEDS: HYDROcodone/acetaminophen (*CRX) 5-325 MG TABLET 1 TAB PO (20:29)
[2023-10-30 20:43] LABS: Glucose Point of Care 271 mg/dl (65-105)
[2023-10-31] VITALS (8 sets, daily range): BP systolic 117–138; BP diastolic 68–84; PULSE 78–100; RESP 16–18; TEMP 36.2–36.4; O2SAT 97–98
[2023-10-31] MEDS: metroNIDAZOLE 500 MG/ISO 100ML 500 MG/100 ML BAG 100 MG IVPB ×3 (00:46→16:33)
[2023-10-31] MEDS: HYDROcodone/acetaminophen (*CRX) 7.5-325 MG TABLET 1 TAB PO ×5 (00:50→20:31)
[2023-10-31] MEDS: levoFLOXacin 750 MG/D5W 150 ML 750 MG/150 ML BAG 100 MG IVPB (01:47)
[2023-10-31 05:45] LABS: Basophils Percent Auto 0.1 % (0.2-1.2); Hematocrit 36.5 % (42.0-52.0); Hemoglobin 12.3 g/dL (14.0-18.0); Immature Granulocyte Absolute 0.05 K/mm3 (0.00-0.031); Immature Granulocyte Percent A 0.5 % (0-0.5); Lymphocytes Absolute Auto 0.36 K/mm3 (0.9-3.2); Lymphocytes Percent Auto 3.6 % (18.3-44.2); Mean Corpuscular HGB Conc 33.7 g/dl (32-36); Mean Corpuscular Hemoglobin 29.9 pg (26-34); Mean Corpuscular Volume 88.6 fl (80-100); Mean Platelet Volume 10.5 fl (7.4-10.4); Monocytes Absolute Auto 0.6 K/mm3 (0.1-0.6); Monocytes Percent Auto 6.3 % (2.6-8.5); Neutrophils Absolute Auto 9.1 K/mm3 (1.3-6.7); Neutrophils Percent Auto 89.5 % (45.5-73.1); Platelet Count Result 138 k/mm3 (150-375); Red Blood Count 4.12 M/mm3 (4.6-6.20); Red Cell Distribution Width 12.3 % (11.5-14.5); White Blood Count 10.1 K/mm3 (4.5-10.0)
[2023-10-31 05:59] LABS: Alanine Aminotransferase 20 U/L (6-50); Albumin Level 3.4 g/dL (3.5-5.1); Alkaline Phosphatase 61 U/L (38-126); Anion Gap 8 mmol/L (4-12); Aspartate Amino Transferase 15 U/L (17-59); Bilirubin,Total 1.6 mg/dL (0.2-1.3); Blood Urea Nitrogen 10 mg/dL (9-20); Calcium 8.5 mg/dL (8.4-10.2); Carbon Dioxide 21 mmol/L (22-30); Chloride 105 mmol/L (98-107); Estimated CRCL calculation 109 ml/min; Estimated Glomerular Filt Rate > 60; Glucose 211 mg/dL (65-110); Potassium 3.8 mmol/L (3.4-5.0); Sodium 134 mmol/L (137-145)
[2023-10-31 07:46] LABS: Glucose Point of Care 186 mg/dl (65-105)
[2023-10-31] MEDS: ENOXAPARIN 40 MG/0.4 ML SYRINGE SUB-Q (08:36)
[2023-10-31 11:24] LABS: Glucose Point of Care 205 mg/dl (65-105)
--- NOTE | 2023-10-31 12:16 | WPDANESPN ---
Anes - Prog Note Post-Op Date/Time: 10/31/23 12:16 Cardiovascular status: normal Respiratory status: normal Airway patency: baseline Mental status: baseline Post-Op hydration status: normal Vital Signs: Last Vital Signs Temp 36.3 C L 10/31/23 08:00 Pulse 79 10/31/23 08:00 Resp 18 10/31/23 08:00 BP 120/68 10/31/23 08:00 Pulse Ox 98 10/31/23 08:00 O2 Del Method Room Air 10/31/23 08:00 O2 Flow Rate 10 10/30/23 15:31 FiO2 21 10/30/23 16:47 Pain Score (VAS): 0 I/O: Intake & Output 10/30/23 10/31/23 10/31/23 23:59 07:59 15:59 Intake Total 1874.5 1500 460 Output Total 400 Balance 1474.5 1500 460 Laboratory Tests 10/31/23 05:17 10/31/23 05:17 10/30/23 10/30/23 10/30/23 05:30 15:35 18:35 WBC RBC Hgb Hct MCV MCH MCHC RDW Plt Count MPV Immature Gran % (Auto) Neut % (Auto) Lymph % (Auto) Mineral % (Auto) Eos % (Auto) Baso % (Auto) Lymph # (Auto) Mineral # (Auto) Eos # (Auto) Baso # (Auto) Abs Immat Gran (auto) Absolute Neuts (auto) Absolute Nucleated RBC Nucleated RBC % Sodium Potassium Chloride Carbon Dioxide Anion Gap BUN Creatinine Estim Creat Clear Calc Estimated GFR Glucose POC Capillary Glucose 196 H 143 H 202 H Calcium Total Bilirubin AST ALT Alkaline Phosphatase Total Protein Albumin 10/30/23 10/31/23 10/31/23 20:28 05:17 07:40 WBC 10.1 H RBC 4.12 L Hgb 12.3 L Hct 36.5 L MCV 88.6 MCH 29.9 MCHC 33.7 RDW 12.3 Plt Count 138 L MPV 10.5 H Immature Gran % (Auto) 0.5 Neut % (Auto) 89.5 H Lymph % (Auto) 3.6 L Mineral % (Auto) 6.3 Eos % (Auto) 0.0 Baso % (Auto) 0.1 L Lymph # (Auto) 0.36 L Mineral # (Auto) 0.6 Eos # (Auto) 0.0 Baso # (Auto) 0.0 Abs Immat Gran (auto) 0.05 H Absolute Neuts (auto) 9.1 H Absolute Nucleated RBC 0.000 Nucleated RBC % 0.0 Sodium 134 L Potassium 3.8 Chloride 105 Carbon Dioxide 21 L Anion Gap 8 BUN 10 Creatinine 0.80 Estim Creat Clear Calc 109 Estimated GFR > 60 Glucose 211 H POC Capillary Glucose 271 H 186 H Calcium 8.5 Total Bilirubin 1.6 H AST 15 L ALT 20 Alkaline Phosphatase 61 Total Protein 6.0 L Albumin 3.4 L 10/31/23 11:17 WBC RBC Hgb Hct MCV MCH MCHC RDW Plt Count MPV Immature Gran % (Auto) Neut % (Auto) Lymph % (Auto) Mineral % (Auto) Eos % (Auto) Baso % (Auto) Lymph # (Auto) Mineral # (Auto) Eos # (Auto) Baso # (Auto) Abs Immat Gran (auto) Absolute Neuts (auto) Absolute Nucleated RBC Nucleated RBC % Sodium Potassium Chloride Carbon Dioxide Anion Gap BUN Creatinine Estim Creat Clear Calc Estimated GFR Glucose POC Capillary Glucose 205 H Calcium Total Bilirubin AST ALT Alkaline Phosphatase Total Protein Albumin Microbiology 10/30/23 01:54 Blood Blood Culture - Preliminary 10/30/23 01:54 Blood Blood Culture - Preliminary Post-procedural complaints: none Patient Feedback: Patient satisfied with anesthetic care.
[2023-10-31] MEDS: INSULIN ASPART (*BKC) 100 UNITS/ML SUB-Q (12:32)
--- NOTE | 2023-10-31 12:43 | PM.PNGS ---
Progress Note: A&P Assessment and Plan (1) Acute appendicitis: Code(s): K35.80 - Unspecified acute appendicitis Status: Acute Assessment and Plan: Doing well postop day 1 after laparoscopic appendectomy for perforated appendicitis. Continue IV Levaquin/Flagyl Advance to diabetic diet Increase activity as tolerated, ambulate in halls (2) Diabetes mellitus with diabetic neuropathy, without long-term current use of insulin: Code(s): E11.40 - Type 2 diabetes mellitus with diabetic neuropathy, unspecified Status: Acute Plan I have discussed the patient's case and plan of care with Dr. Cunha. Subjective Subjective Date/Time Seen: 10/31/23 09:43 Post Op day: 1 (Laparoscopic appendectomy) Patient reports: no new complaints, still having pain and afebrile Interval history: Patient states overall abdominal pain is better, he is reporting different pain today. His pain is mostly across his lower abdomen, but also reports it radiates up across his upper abdomen and into his back at times when getting up and moving around. He reports little flatus this morning. No nausea or vomiting. He tolerated liquids well and is planning to have a diabetic diet for lunch. Exam Const: General: comfortable and no acute distress Orientation/consciousness: patient oriented x3 GI: Inspection: non-distended and incision (incisions dry and intact) GI Palp: Yes Soft to palpation, Yes Tenderness to palpation present (GI) (diffusely tender, worse in the lower abdomen) and No Guarding due to palpation present (GI) Auscultation: normal bowel sounds Neuro: General: moves all extremities and no focal motor deficits Extrem: General: no calf tenderness and no edema Psych: Mental Status: mental status grossly normal Insight: Good insight present (Psych) Objective Data Vital Signs Vital Signs: Vital Signs - 24 hr 10/30/23 13:35 10/30/23 15:31 10/30/23 15:45 Temperature 98.6 F Pulse Rate 90 87 87 Respiratory Rate 14 14 16 Blood Pressure 122/75 113/68 127/72 Pulse Oximetry 97 100 100 Oxygen Delivery Room Air Simple Face Mask Room Air Oxygen Flow Rate 10 Fraction of Inspired Oxygen 10/30/23 16:00 10/30/23 16:15 10/30/23 16:30 Temperature 97.5 F L Pulse Rate 87 86 80 Respiratory Rate 14 16 17 Blood Pressure 129/71 124/73 118/61 Pulse Oximetry 96 96 98 Oxygen Delivery Room Air Room Air Oxygen Flow Rate Fraction of Inspired Oxygen 10/30/23 16:47 10/30/23 17:04 10/30/23 18:04 Temperature 97.9 F 97.8 F Pulse Rate 88 90 Respiratory Rate 17 17 Blood Pressure 127/74 137/77 Pulse Oximetry 97 93 96 Oxygen Delivery Room Air Oxygen Flow Rate Fraction of Inspired Oxygen 21 10/30/23 20:30 10/30/23 21:11 10/30/23 20:00 Temperature 97.7 F Pulse Rate 99 99 Respiratory Rate 18 Blood Pressure 138/78 Pulse Oximetry 97 Oxygen Delivery Room Air Oxygen Flow Rate Fraction of Inspired Oxygen 10/31/23 00:00 10/31/23 04:00 10/31/23 05:37 Temperature 97.1 F L Pulse Rate 98 82 78 Respiratory Rate 16 Blood Pressure 117/77 Pulse Oximetry 97 Oxygen Delivery Oxygen Flow Rate Fraction of Inspired Oxygen 10/31/23 08:00 10/31/23 08:00 10/31/23 08:00 Temperature 97.3 F L Pulse Rate 82 79 Respiratory Rate 18 Blood Pressure 120/68 Pulse Oximetry 98 Oxygen Delivery Room Air Oxygen Flow Rate Fraction of Inspired Oxygen Intake/Output Intake/Output: Intake & Output 10/28/23 10/29/23 10/30/23 10/31/23 23:59 23:59 23:59 23:59 Intake Total 5224.5 2510 Output Total 700 Balance 4524.5 2510 Meds/Results Medications: Active Medications Generic Name Dose Route Start Last Admin Trade Name Freq PRN Reason Stop Dose Admin Hydrocodone Bitart/Acetaminophen 1 tab 10/30/23 16:19 10/30/23 20:29 Hydrocodone/Acetaminophen (*Crx) 5-325 Mg Tablet PO 1 tab Q4H PRN Administration Pain Rated 4-6 Hydrocodone B
--- NOTE | 2023-10-31 14:50 | PM.IMPN ---
Progress Note: A&P Assessment and Plan (1) Acute appendicitis: Code(s): K35.80 - Unspecified acute appendicitis Status: Acute Assessment and Plan: Symptoms: right lower quadrant pain with associated guarding. resolved. CT abdomen/pelvis: Marked wall thickening of the appendix and cecum, with extensive surrounding inflammatory change. Diagnostic considerations include acute acute appendicitis versus possibly colitis. No abscess or free air evident. Diabetic diet. Tolerating well. Passing flatus. No BM yet. Antibiotics: Levaquin and flagyl Analgesics S/p laparoscopic appendectomy 10/[address] Cunha (2) Diabetes mellitus with diabetic neuropathy, without long-term current use of insulin: Code(s): E11.40 - Type 2 diabetes mellitus with diabetic neuropathy, unspecified Status: Acute Assessment and Plan: - hypoglycemia protocol - POC blood glucose - home medication - insulin glargine, metformin - correct regimen ordered - moderate dose TIDWM and HS - A1C 08/29/23: 9.7 (3) Hypertension: Code(s): I10 - Essential (primary) hypertension Status: Chronic Assessment and Plan: Well controlled on home lisinopril 20 mg daily and HCTZ 12.5 mg daily. - Restarted home medications - monitor blood pressures Time Spent With Patient Time with patient: 25 - 35 minutes Subjective Date/time seen: 10/31/23 14:50 Interval history: 53 year old male with past medical history of hypertension and diabetes presents to the hospital for appendicitis. Now s/p laparoscopic appendectomy for perforated appendicitis on 10/[address] Cunha. Patient is pleasant lying comfortably in bed. He continues to endorse pain that is further exacerbated with movement. He notes the pain is more in his lower abdomen and along the incisions. He states that his pain is well controlled with the current pain regimen. He was able to ambulate around the nurses station today. He is now a a diabetic diet and tolerating it well. He has not had a bowel movement but is passing flatus. He will likely be able to discharge home tomorrow. Exam Narrative: AF HR 100 RR 18 SpO2 100 BP 138/84 General: male in no acute respiratory distress who is nontoxic appearing, lying semi recumbent in bed. HEENT: Normocephalic. Atraumatic. Pupils equal round reactive to light. Extraocular movement intact. Sclera clear and anicteric. No facial asymmetry. Chest: Lungs are clear to auscultation bilaterally. No wheezes or crackles. CV: Heart was regular rate and rhythm. S1/S2. No murmurs, gallops, or rubs. Abd: Abdomen was soft. Generalized tenderness to palpation without guarding. Nondistended. Positive bowel sounds. No organomegaly or masses. Ext: No clubbing, cyanosis, or edema. 2+ DP pulses bilaterally. Neuro: Patient is alert and oriented x4. Strength is 5/5 in both upper and lower extremities. Speech is clear. Psych: Normal mood and affect. Patient is pleasant and cooperative. Skin: Warm and dry. No rashes noted. Laparoscopic incision that are well healing. Objective Data Vital Signs Vital Signs: Vital Signs - 24 hr 10/30/23 15:31 10/30/23 15:45 10/30/23 16:00 Temperature Pulse Rate 87 87 87 Respiratory Rate 14 16 14 Blood Pressure 113/68 127/72 129/71 Pulse Oximetry 100 100 96 Oxygen Delivery Simple Face Mask Room Air Room Air Oxygen Flow Rate 10 Fraction of Inspired Oxygen 10/30/23 16:15 10/30/23 16:30 10/30/23 16:47 Temperature 97.5 F L Pulse Rate 86 80 Respiratory Rate 16 17 Blood Pressure 124/73 118/61 Pulse Oximetry 96 98 97 Oxygen Delivery Room Air Room Air Oxygen Flow Rate Fraction of Inspired Oxygen 21 10/30/23 17:04 10/30/23 18:04 10/30/23 20:30 Temperature 97.9 F 97.8 F Pulse Rate 88 90 Respiratory Rate 17 17 Blood Pressure 127/74 137/77 Pulse Oximetry 93 96 Oxygen Delivery Room Air Oxygen Flow Rate Fraction of Inspired Oxygen 10/30/23 21:11 10/30/23 20:00 10/31/23
[2023-10-31] MEDS: hydroCHLOROthiazide 12.5 MG CAPSULE PO (15:49)
[2023-10-31] MEDS: lisinopriL 20 MG TABLET PO (15:49)
[2023-10-31] MEDS: IBUPROFEN 600 MG TABLET PO (15:49)
[2023-10-31 16:26] LABS: Glucose Point of Care 178 mg/dl (65-105)
[2023-10-31] MEDS: ATORVASTATIN 40 MG TABLET PO (20:31)
[2023-10-31 21:01] LABS: Glucose Point of Care 192 mg/dl (65-105)
[2023-11-01] VITALS: PULSE 96
[2023-11-01] MEDS: metroNIDAZOLE 500 MG/ISO 100ML 500 MG/100 ML BAG 100 MG IVPB ×2 (00:47→08:15)
[2023-11-01] MEDS: HYDROcodone/acetaminophen (*CRX) 7.5-325 MG TABLET 1 TAB PO ×2 (00:47→06:22)
[2023-11-01] MEDS: levoFLOXacin 750 MG/D5W 150 ML 750 MG/150 ML BAG 100 MG IVPB (01:50)
[2023-11-01] MEDS: BISACODYL 5 MG TABLET EC PO (02:13)
[2023-11-01 04:00] VITALS: PULSE 83
[2023-11-01 05:57] LABS: Basophils Percent Auto 0.1 % (0.2-1.2); Eosinophils Absolute Auto 0.1 K/mm3 (0-0.3); Hematocrit 32.8 % (42.0-52.0); Hemoglobin 11.4 g/dL (14.0-18.0); Immature Granulocyte Absolute 0.03 K/mm3 (0.00-0.031); Immature Granulocyte Percent A 0.4 % (0-0.5); Lymphocytes Absolute Auto 0.79 K/mm3 (0.9-3.2); Lymphocytes Percent Auto 10.8 % (18.3-44.2); Mean Corpuscular HGB Conc 34.8 g/dl (32-36); Mean Corpuscular Hemoglobin 30.1 pg (26-34); Mean Corpuscular Volume 86.5 fl (80-100); Monocytes Absolute Auto 0.5 K/mm3 (0.1-0.6); Monocytes Percent Auto 6.3 % (2.6-8.5); Neutrophils Percent Auto 81.4 % (45.5-73.1); Platelet Count Result 154 k/mm3 (150-375); Red Blood Count 3.79 M/mm3 (4.6-6.20); Red Cell Distribution Width 12.2 % (11.5-14.5); White Blood Count 7.3 K/mm3 (4.5-10.0)
[2023-11-01 06:00] VITALS: BP 139/92; PULSE 75; RESP 20; TEMP 35.7; O2SAT 99
[2023-11-01 06:08] LABS: Alanine Aminotransferase 20 U/L (6-50); Albumin Level 3.3 g/dL (3.5-5.1); Alkaline Phosphatase 60 U/L (38-126); Anion Gap 6 mmol/L (4-12); Aspartate Amino Transferase 19 U/L (17-59); Bilirubin,Total 1.2 mg/dL (0.2-1.3); Blood Urea Nitrogen 13 mg/dL (9-20); Calcium 8.5 mg/dL (8.4-10.2); Carbon Dioxide 26 mmol/L (22-30); Chloride 102 mmol/L (98-107); Estimated CRCL calculation 109 ml/min; Estimated Glomerular Filt Rate > 60; Glucose 171 mg/dL (65-110); Potassium 3.2 mmol/L (3.4-5.0); Sodium 134 mmol/L (137-145)
[2023-11-01 07:22] LABS: Glucose Point of Care 160 mg/dl (65-105)
[2023-11-01 08:00] VITALS: PULSE 87
[2023-11-01] MEDS: POTASSIUM CHLORIDE 20 MEQ ER TABLET 40 MEQ PO (08:15)
[2023-11-01] MEDS: lisinopriL 20 MG TABLET PO (08:15)
[2023-11-01] MEDS: ENOXAPARIN 40 MG/0.4 ML SYRINGE SUB-Q (08:16)
[2023-11-01] MEDS: hydroCHLOROthiazide 12.5 MG CAPSULE PO (08:16)
[2023-11-01 11:27] LABS: Glucose Point of Care 183 mg/dl (65-105)
[2023-11-01 12:00] VITALS: PULSE 88
--- NOTE | 2023-11-01 13:32 | PM.PNGS ---
Progress Note: A&P Assessment and Plan (1) Acute appendicitis: Qualifiers: Acute appendicitis type: with generalized peritonitis Appendicitis gangrene presence: with gangrene Appendicitis perforation presence: with perforation Appendicitis abscess presence: without abscess Qualified Code(s): K35.201 - Acute appendicitis with generalized peritonitis, with perforation, without abscess Code(s): K35.80 - Unspecified acute appendicitis Status: Acute Assessment and Plan: Doing well on POD#2. OK to discharge today. Recommend 1 week of Levaquin and Flagyl. Discharge instructions discussed with patient. Follow up in 2 weeks. Subjective Subjective Date/Time Seen: 11/01/23 13:32 Interval history: Doing well. No fevers. Tolerating diet. No nausea/vomiting. Passing flatus. Exam GI: Inspection: non-distended and incision (intact with glue) GI Palp: Yes Soft to palpation and Yes Tenderness to palpation present (GI) (Left incision) Auscultation: normal bowel sounds Objective Data Vital Signs Vital Signs: Vital Signs - 24 hr 10/31/23 14:04 10/31/23 16:00 10/31/23 20:30 Temperature 36.4 C Pulse Rate 100 94 Respiratory Rate 18 Blood Pressure 138/84 Pulse Oximetry 98 Oxygen Delivery Room Air Fraction of Inspired Oxygen 10/31/23 20:00 11/01/23 00:00 11/01/23 04:00 Temperature Pulse Rate 81 96 83 Respiratory Rate Blood Pressure Pulse Oximetry Oxygen Delivery Fraction of Inspired Oxygen 11/01/23 06:00 11/01/23 08:16 11/01/23 08:00 Temperature 35.7 C L Pulse Rate 75 87 Respiratory Rate 20 Blood Pressure 139/92 H Pulse Oximetry 99 Oxygen Delivery Room Air Fraction of Inspired Oxygen 21 11/01/23 12:00 Temperature Pulse Rate 88 Respiratory Rate Blood Pressure Pulse Oximetry Oxygen Delivery Fraction of Inspired Oxygen Intake/Output Intake/Output: Intake & Output 10/29/23 10/30/23 10/31/23 11/01/23 23:59 23:59 23:59 23:59 Intake Total 5224.5 3880 2480 Output Total 700 800 Balance 4524.5 3880 1680 Meds/Results Medications: Active Medications Generic Name Dose Route Start Last Admin Trade Name Freq PRN Reason Stop Dose Admin Hydrocodone Bitart/Acetaminophen 1 tab 10/30/23 16:19 10/30/23 20:29 Hydrocodone/Acetaminophen (*Crx) 5-325 Mg Tablet PO 1 tab Q4H PRN Administration Pain Rated 4-6 Hydrocodone Bitart/Acetaminophen 1 tab 10/30/23 16:19 11/01/23 06:22 Hydrocodone/Acetaminophen (*Crx) 7.5-325 Mg Tablet PO 1 tab Q4H PRN Administration Pain Rated 7-10 Atorvastatin Calcium 40 mg 10/31/23 21:00 10/31/23 20:31 Atorvastatin 40 Mg Tablet PO 40 mg QHS ABIMAEL Administration Bisacodyl 5 mg 11/01/23 01:54 11/01/23 02:13 Bisacodyl 5 Mg Tablet Ec PO 5 mg DAILY PRN Administration Constipation Dextrose 12.5 gm 10/30/23 01:43 Dextrose 50% 25 Gm/50 Ml Syringe IV PUSH PRN PRN Hypoglycemia Protocol Diphenhydramine HCl 25 mg 10/30/23 16:19 Diphenhydramine Hcl Inj 50 Mg/Ml Vial IV PUSH Q6H PRN Itching Enoxaparin Sodium 40 mg 10/31/23 09:00 11/01/23 08:16 Enoxaparin 40 Mg/0.4 Ml Syringe SUB-Q 40 mg DAILY ABIMAEL Administration Glucagon 1 mg 10/30/23 01:43 Glucagon For Inj 1 Mg Vial IM PRN PRN Hypoglycemia Protocol Glucose 15 gm 10/30/23 01:43 Glucose Oral Gel 15 Gm Of Glucse In 37.5 Gm Tube PO PRN PRN Hypoglycemia Protocol Hydrochlorothiazide 12.5 mg 10/31/23 15:10 11/01/23 08:16 Hydrochlorothiazide 12.5 Mg Capsule PO 12.5 mg DAILY ABIMAEL Administration Hydromorphone HCl 1 mg 10/30/23 16:19 10/30/23 16:50 Hydromorphone Hcl Inj (*Crx) 1 Mg/Ml Syr IV PUSH 1 mg Q2H PRN Administration Breakthrough Pain Rated 7-10 or NPO Hydromorphone HCl 0.5 mg 10/30/23 16:19 Hydromorphone Hcl Inj (*Crx) 1 Mg/Ml Syr IV PUSH Q2H PRN Breakthrough Pain
--- NOTE | 2023-11-01 13:43 | PM.DS ---
DS: Admitting Diagnosis Discharge Date 11/01/23 Admitting Diagnosis acute appendicitis diabetes mellitus hypertension DS: Discharge Diagnosis Discharge Diagnosis (1) Acute appendicitis: Qualifiers: Acute appendicitis type: with generalized peritonitis Appendicitis abscess presence: without abscess Appendicitis gangrene presence: with gangrene Appendicitis perforation presence: with perforation Qualified Code(s): K35.201 - Acute appendicitis with generalized peritonitis, with perforation, without abscess Code(s): K35.80 - Unspecified acute appendicitis Status: Acute (2) Diabetes mellitus with diabetic neuropathy, without long-term current use of insulin: Code(s): E11.40 - Type 2 diabetes mellitus with diabetic neuropathy, unspecified Status: Acute (3) Hypertension: Code(s): I10 - Essential (primary) hypertension Status: Chronic DS: Summary Hospital Course Reason for hospitalization: acute appendicitis diabetes mellitus hypertension Hospital Course: 53 year old male with past medical history of hypertension and diabetes presents to the hospital for right lower quadrant pain with associated nausea/vomiting and fever. On admission patient had a leukocytosis and elevated total bilirubin. A CT abdomen/pelvis revealed marked wall thickening of the appendix and cecum, with extensive surrounding inflammatory change. Diagnostic considerations include acute acute appendicitis versus possibly colitis. No abscess or free air evident. Patient was evaluated by surgery and underwent a laparoscopic appendectomy for perforated appendicitis on 10/[address] Cunha. His leukocytosis has since resolved. He will continue Levaquin and Flagyl PO for one week. Patient is now tolerating a regular diet and pain is well controlled with current pain regimen. He is passing flatus, but has not had a bowel movement. He states he does not need a stool softener at this time due to having Miralax at home. Patient discharged home in a stable condition with plan to follow up with surgery in 2 weeks and PCP in 1 week. Status at Discharge Functional status at discharge: independent ambulation Time Spent with Patient Time attestation: Total time spent providing and/or coordinating discharge services: Time spent: Greater than 30 minutes Exam Narrative: AF HR 75 RR 20 SpO2 99 BP 139/92 General: male in no acute respiratory distress who is nontoxic appearing, lying semi recumbent in bed. HEENT: Normocephalic. Atraumatic. Pupils equal round reactive to light. Extraocular movement intact. Sclera clear and anicteric. No facial asymmetry. Chest: Lungs are clear to auscultation bilaterally. No wheezes or crackles. CV: Heart was regular rate and rhythm. S1/S2. No murmurs, gallops, or rubs. Abd: Abdomen was soft. Generalized tenderness to palpation without guarding. Nondistended. Positive bowel sounds. No organomegaly or masses. Ext: No clubbing, cyanosis, or edema. 2+ DP pulses bilaterally. Neuro: Patient is alert and oriented x4. Strength is 5/5 in both upper and lower extremities. Speech is clear. Psych: Normal mood and affect. Patient is pleasant and cooperative. Skin: Warm and dry. No rashes noted. Laparoscopic incision that are well healing. DS: Data Data Completed and Pending Completed studies during hospitalization: Pending at discharge 10/30/23 15:14 Surgical [PTH] Routine Labs on day of discharge: Labs from last 24 hours 11/01/23 11/01/23 11/01/23 11:25 07:20 05:42 WBC 7.3 RBC 3.79 L Hgb 11.4 L Hct 32.8 L MCV 86.5 MCH 30.1 MCHC 34.8 RDW 12.2 Plt Count 154 MPV 10.0 Immature Gran % (Auto) 0.4 Neut % (Auto) 81.4 H Lymph % (Auto) 10.8 L [place] % (Auto) 6.3 Eos % (Auto) 1.0 Baso % (Auto) 0.1 L Lymph # (Auto) 0.79 L [place] # (Auto) 0.5 Eos # (Auto) 0.1 Baso # (Auto) 0.0 Abs Immat Gran (auto) 0.03 Absolute Neuts (auto) 6.0
[2023-11-01] MEDS: polyethylene glycoL 3350 17 GM POWD.PACK PO (13:51)
== END 2023-11-01 15:50 | disposition home or self-care (01) ==
LOC: ANHED 10-30 01:23 → ANH3MEDSUR 10-30 06:25
PROVIDERS: Student in an Organized Health Care Education/Training Program; Surgery; Admitting Provider Internal Medicine; Emergency Provider Emergency Medicine; PCP Emergency Medicine; Visit Provider General Practice
PROC: 0DTJ4ZZ Resection of Appendix, Percutaneous Endoscopic Approach (ICD-10-PCS; CPT 44970; principal; 2023-10-30 15:00)
DX: K35.32 Acute appendicitis with perforation, localized peritonitis, and gangrene, without abscess (principal); E11.40 Type 2 diabetes mellitus with diabetic neuropathy, unspecified; I10 Essential (primary) hypertension; Z87.891 Personal history of nicotine dependence; Z79.84 Long term (current) use of oral hypoglycemic drugs; Z79.4 Long term (current) use of insulin; E66.9 Obesity, unspecified; Z68.30 Body mass index [BMI] 30.0-30.9, adult
CPT/HCPCS: 44970; 36415; 74177; 80053; 81001; 82948; 83605; 83690; 85025; 87040; 88304; 93005; 96361; 96365; 96367; 96375; 96376; 99285; A9270; G0378; J0330; J1100; J1170; J1650; J1815; J1836; J1885; J1956; J2250; J2405; J2704; J3010; J7030; J7120; Q9967

== ENCOUNTER 2024-01-22 15:48 | Outpatient (CLI) | payer BC, SELFPAY ==
[2024-01-22 20:11] LABS: Anion Gap 11 mmol/L (4-12); Blood Urea Nitrogen 17 mg/dL (9-20); Calcium 9.8 mg/dL (8.4-10.2); Carbon Dioxide 29 mmol/L (22-30); Chloride 93 mmol/L (98-107); Estimated Glomerular Filt Rate > 60; Glucose 110 mg/dL (65-110); Potassium 3.9 mmol/L (3.4-5.0); Sodium 133 mmol/L (137-145)
[2024-01-22 20:45] LABS: Creatinine Urine 62.5 mg/dL
[2024-01-22 20:49] LABS: MALB Creatinine Ratio 33.3 mg/g (0-30); Microalbumin Urine Random 20.8 mg/L (0-16.7)
[2024-01-22 20:50] LABS: Hemoglobin A1C 6.6 % (<5.7)
== END 2024-01-22 15:49 | disposition home or self-care (01) ==
LOC: ANHGOSHLAB 15:48
PROVIDERS: PCP Emergency Medicine; Visit Provider Emergency Medicine
DX: E11.40 Type 2 diabetes mellitus with diabetic neuropathy, unspecified (principal); Z79.4 Long term (current) use of insulin
CPT/HCPCS: 36415; 80048; 82043; 83036

== ENCOUNTER 2024-01-29 09:08 | Outpatient (RCR) | payer BC, SELFPAY | END 2024-04-20 10:26 | disposition home or self-care (01) | LOC: ANHDMC 09:08 | PROVIDERS: PCP Emergency Medicine; Visit Provider Emergency Medicine | DX: E11.40 Type 2 diabetes mellitus with diabetic neuropathy, unspecified (principal); Z71.89 Other specified counseling | CPT/HCPCS: G0108 ==

== ENCOUNTER 2024-05-18 14:51 | Emergency (ER) | payer BC, SELFPAY ==
--- NOTE | 2024-05-18 14:54 | ED.URI ---
HPI - URI/Sore Throat General Chief Complaint: Upper Respiratory Infection Stated Complaint: Sinus Infection Symptoms Time Seen by Provider: 05/18/24 15:00 Source: patient Mode of arrival: ambulatory Limitations: no limitations History of Present Illness HPI Narrative: Sergio is a 54-year-old male patient presenting to the clinic today with complaints feeling feverish, sore throat, cough, nasal congestion, sinus pressure, and bilateral ear pressure. He reports did a at home COVID test and it was negative. Symptoms have been going on for 4-5 days. He is diabetic. Denies any chest pain or shortness of breath. MD elicited complaint: fever, cough, sore throat, nasal congestion and other (Sinus pressure, ear pressure) Related Data Allergies Allergy/AdvReac Type Severity Reaction Status Date / Time Cephalosporins Allergy Mild Joint Pain Verified 05/18/24 14:58 Review of Systems Review of Systems: Pertinent positives per HPI. Patient denies any fever, chills, rash, headache, visual changes, dizziness,shortness of breath, chest pain, palpitations, nausea, vomiting, diarrhea, constipation, abdominal pain, or any urinary issues. [facility] Past Medical History Medical History Allergies Hypertension Obesity (BMI 30.0-34.9) Surgical History Surgical History History of laparoscopic appendectomy 10/30/23 Family History Family History Father Diabetes mellitus Hypertension Myocardial infarct Mother Cancer Hypertension Thyroid disorder Other Cerebrovascular accident Social History Social History Social History: caffeine-cola coffee occasionally Smoking status: Never smoker Alcohol intake: never Alcohol use details: rarely Substance use: never Substance use type: marijuana Do You Feel Safe in your Home?: Yes Lack of Transportation: No Lack of Food: Never True Current Housing: I Have Housing Concerned About Future Housing: No Difficulty Paying Gas/Electric Bills: No Difficulty Paying for Meds: No Currently Unemployed: No Education: Associate Degree Difficulty w/ Childcare or Family Care: No Living arrangements: with friend(s) 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 There is no relevant family history pertinent to the patient complaint. Exam Narrative: General: Well-developed, well nourished, in no apparent distress Head: Normocephalic, atraumatic Eyes: Pupils equally round and reactive to light bilaterally, EOM intact, sclera and conjunctive clear, no discharge, lids normal Ears: TMs intact, congested, mild bulging, ear canals clear, no drainage, grossly hearing normal. Nose: Nares patent, clear nasal discharge, no inflammation, no sinus tenderness. Mouth: Oral pharynx red with bilateral tonsillar enlargement without lesions or masses, good dentition, MMM. Postnasal drip Neck: Supple, trachea midline, mild enlargement of anterior cervical nodes, no thyroid masses or goiter palpable. Cardio: Regular rate and rhythm, s1 and s2 normal, no murmur appreciated. Resp: Clear to auscultation bilaterally, no rhonchi, rales, wheezing or rubs Course Course Emergency Course: Portions of this record may have been created with voice recognition software. Level of Care: Express Care Visit Vital Signs Vital signs: Vital signs reviewed MDM - URI/Sore Throat MDM Narrative Medical decision making narrative: At the time of visit patient is resting comfortably on the exam table. Patient appears to be nontoxic. Labs: Strep test was performed in the clinic today was negative. We will send strep for culture. Plan: I suspect patient has URI/pharyngitis. Supportive measures were discussed with the patient and they voiced understanding discharge instructions and agrees to treatment plan. Return precautions reviewed Differential Diagnosis Differential diagnosis: Likely upper respiratory infection, otitis media, sinusitis, viral infection, bronchitis, influenza, pharyngitis and other (COVID) Discharge Plan Discharge Clinical Impression: Viral infection Upper respiratory infection Qualifiers: URI type: unspecified URI Qualified Code(s): J06.9 - Acute upper respiratory infection, unspecified Pharyngitis Qualifiers: Pharyngitis/tonsillitis etiology: unspecified etiology Qualified Code(s): J02.9 - Acute pharyngitis, unspecified Patient Disposition: Home, Self-Care Condition: Stable Instructions: Antibiotic Form, Pharyngitis (ED), Viral Syndrome (ED), Cold Symptoms (ED) Additional Instructions: Strep test was negative in the clinic today. We will send for culture. Recommend taking sugar free Coricidin HBP for cold/flu symptoms Increase fluids and stay well hydrated Tylenol/motrin for pain/fever Flonase and OTC antihistamines such as Zyrtec or Claritin daily as directed Vicks vapor rub to open sinuses Sinus rinses for congestion Cepacol spray, cough drops, throat lozenges, warm tea with honey/lemon, gargle salt water to soothe throat BRAT diet for diarrhea Clear liquids x 24 hours then advance as tolerated for nausea/vomiting Go to the ED if you develop a worsening in your condition- high fever not controlled by Tylenol or Motrin, dehydration, weakness, lethargy, shortness of breath, or chest pain. Follow up with your PCP in 3-5 days if symptoms persist. Prescriptions: No Action (DME) blood-glucose meter [BluLink Glucose Monitor System] Misc See Rx Instructions .Route Qty: 1 0RF Rx Instructions: Check blood sugar three times daily (DME) BluLink Glucose Test Strip Strip See Rx Instructions .Route Qty: 100 1RF Rx Instructions: Check blood glucose three times daily (DME) lancets 30 gauge misc See Rx Instructions .Route Qty: 100 1RF Rx Instructions: Check blood sugar three times daily (DME) pen needle, diabetic [CareTouch Pen Needle] 31 gauge x 5/16 needle See Rx Instructions .Route Qty: 100 1RF Rx Instructions: Check blood sugar 3 times daily hydrocodone-acetaminophen 5-325 mg tablet 1 tablet PO Q4H PRN (Reason: pain) Qty: 10 0RF atorvastatin 40 mg tablet 40 mg PO QHS Qty: 90 1RF lisinopril-hydrochlorothiazide 20-12.5 mg tablet 1 tablet PO DAILY Qty: 30 2RF metformin 750 mg tablet extended release 24 hr 750 mg PO BID Qty: 180 3RF insulin glargine [Basaglar KwikPen U-100 Insulin] 100 unit/mL (3 mL) insulin pen See Rx Instructions .ROUTE .COMPLEX Qty: 3 3RF Dose Instruction: ADMINISTER 10 UNITS UNDER THE SKIN EVERY EVENING Rx Instructions: ADMINISTER 10 UNITS UNDER THE SKIN EVERY EVENING Follow-up/Referrals: Serge Gill MD [Primary Care Provider] - Stand Alone Forms: Work/School Release IP Time of Disposition: 15:17 Quality NIHSS Nursing Documentation ED NIHSS nursing documentation: reviewed/agree
[2024-05-18 14:57] VITALS: BP 136/89; PULSE 94; RESP 16; TEMP 36.6; O2SAT 99
[2024-05-18 15:21] LABS: EDSTREPNEGPOS1 Negative (Negative)
== END 2024-05-18 15:23 | disposition home or self-care (01) ==
PROVIDERS: Emergency Provider Nurse Practitioner Family; PCP Emergency Medicine
DX: B34.9 Viral infection, unspecified (principal); J06.9 Acute upper respiratory infection, unspecified; J02.9 Acute pharyngitis, unspecified; I10 Essential (primary) hypertension; E66.9 Obesity, unspecified; Z68.29 Body mass index [BMI] 29.0-29.9, adult; E11.9 Type 2 diabetes mellitus without complications
CPT/HCPCS: 87081; 87880; 99213; G0463

== ENCOUNTER 2024-08-28 14:26 | Emergency (ER) | payer BC, SELFPAY ==
[2024-08-28 14:38] VITALS: BP 151/93; PULSE 101; RESP 16; TEMP 36.6; O2SAT 98
[2024-08-28 14:55] LABS: EDCOVIDSCREEN Negative (Negative); EDINFLUASCREEN Negative (Negative); EDINFLUBSCREEN Negative (Negative)
--- NOTE | 2024-08-28 14:56 | ED.URI ---
HPI - URI/Sore Throat General Chief Complaint: Upper Respiratory Infection Stated Complaint: BODY ACHES/CONGESTION/SORE THROAT/CHEST/HEAD/EARS Time Seen by Provider: 08/28/24 14:30 Source: patient Mode of arrival: ambulatory Limitations: no limitations History of Present Illness HPI Narrative: patient is a 54-year-old male who presents with body aches, chest and head congestion, and sore throat for 2 days and cough that started today. Denies any fever, chills, nausea, vomiting, diarrhea. Patient has been taking Coricidin. Related Data Allergies Allergy/AdvReac Type Severity Reaction Status Date / Time Cephalosporins Allergy Mild Joint Pain Verified 08/28/24 14:33 Review of Systems Review of Systems: All systems reviewed & are unremarkable except as noted in HPI and below Constitutional: Constitutional: Denies chills, Denies fatigue, Denies fever(s), Denies headache(s), Denies malaise and Denies weakness Eyes: Eyes: Denies blurry vision, Denies itchy eyes and Denies loss of vision ENT: Denies otalgia, Denies headache(s), Reports nasal congestion, Denies sinus pain and Denies sore throat Cardiovascular: Cardiovascular: Denies chest pain, Denies irregular heart rhythm and Denies dyspnea Respiratory: Respiratory: Reports cough and Denies dyspnea Gastrointestinal: Gastrointestinal: Denies abdominal pain, Denies diarrhea, Denies nausea and Denies vomiting Musculoskeletal: Musculoskeletal: Denies back pain, Denies myalgias and Denies arthralgias Integumentary/Breasts: Skin/Breast: Denies pruritus and Denies rash Neurologic: Denies headache(s), Denies loss of vision and Denies weakness Psychiatric: Psychiatric: Reports no additional psychiatric complaints Endocrine: Endocrine: Denies fatigue Allergic/Immunologic: Allergic/Immunologic: Denies itchy eyes PMFSH Past Medical History Medical History Allergies Hypertension Obesity (BMI 30.0-34.9) Surgical History Surgical History History of laparoscopic appendectomy 10/30/23 Family History Family History Father Diabetes mellitus Hypertension Myocardial infarct Mother Cancer Hypertension Thyroid disorder Other Cerebrovascular accident Social History Social History Social History: caffeine-cola coffee occasionally Smoking status: Never smoker Alcohol intake: never Alcohol use details: rarely Substance use: never Substance use type: marijuana Do You Feel Safe in your Home?: Yes Lack of Transportation: No Lack of Food: Never True Current Housing: I Have Housing Concerned About Future Housing: No Difficulty Paying Gas/Electric Bills: No Difficulty Paying for Meds: No Currently Unemployed: No Education: Associate Degree Difficulty w/ Childcare or Family Care: No Living arrangements: with friend(s) 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: 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 There is no relevant family history pertinent to the presenting complaint. Exam Const: General: cooperative, healthy appearing, comfortable, no acute distress and well nourished Nutritional Appearance: well nourished Orientation/consciousness: patient oriented x3 Limitations: no limitations HENMT: Head: normal to inspection, normocephalic and atraumatic Ears: hearing grossly normal bilaterally, external ears normal, TM's normal bilaterally, EAC's normal and no periauricular adenopathy Face/Nose/Sinus: Normal external nose present, Abnormal mucous membranes and turbinates present erythematous bilateral and diffuse, normal facial exam, sinuses nontender and face symmetric Face and sinus: normal facial exam, sinuses nontender and face symmetric Mouth: Yes Normal oral and palatal mucosa present, Yes lip normal, Yes tongue normal, Yes Normal salivary glands and ducts present, Yes oropharynx normal and Yes moist mucous membranes Teeth and gingiva: dentition normal Throat: tonsils normal, uvula midline, posterior oropharynx abnormal erythema and postnasal drainage Eyes: General: appearance normal, both eyes and all related structures Alignment and Position: alignment normal and position normal Periorbital: periorbital findings normal Eyelids: eyelids normal Pupils: Equal, round and reactive pupils present Neck: Neck: normal visual inspection, full ROM, no lymphadenopathy and supple Chest: Chest palpation & inspection: normal inspection of the chest and normal palpation of entire chest wall Resp: Effort & Inspection: normal respiratory effort and able to speak in complete sentences Auscultation: clear to auscultation bilaterally, no crackles, no rales, no rhonchi and no wheezes Cardio: Rate: regular rate Rhythm: regular rhythm Heart sounds: S1 normal heart sound present and S2 normal heart sound present GI: Inspection: normal to inspection Skin: General skin exam: normal color and no rashes or lesions noted Neuro: General: patient oriented x3 and moves all extremities Cranial nerves: Yes Equal, round and reactive pupils present Speech: normal speech Gait exam (Neuro): Normal gait present Extrem: General: normal to inspection, full ROM and no edema Psych: Appearance: grossly normal and well kempt Mental Status: mental status grossly normal Speech and movement: Normal speech and movement present Affect: normal affect Attitude: cooperative Thought process: Normal thought process present Course Course Emergency Course: Discharge instructions reviewed with patient, as well as provided in writing per nursing staff. The instructions also include specific and strict return/GO TO THE ER as well as f/u information. All questions have been answered, and the patient deny any further questions with discharge and discharge plan. Portions of this record may have been created with voice recognition software Level of Care: Express Care Visit Vital Signs Vital signs: Vital Signs Temperature 36.6 C 08/28/24 14:38 Pulse Rate 101 H 08/28/24 14:38 Respiratory Rate 16 08/28/24 14:38 Blood Pressure 151/93 H 08/28/24 14:38 Pulse Oximetry 98 08/28/24 14:38 Temperature 36.6 C 08/28/24 14:38 Pulse Rate 101 H 08/28/24 14:38 Respiratory Rate 16 08/28/24 14:38 Blood Pressure 151/93 H 08/28/24 14:38 Pulse Oximetry 98 08/28/24 14:38 Reviewed MDM - URI/Sore Throat MDM Narrative Medical decision making narrative: Pt well hydrated appearing, in no respiratory distress, hemodynamically stable. Recommend supportive care. The patient is stable at time of discharge the clinical impression was discussed and the patient was given the opportunity to ask questions, which were addressed as completely as possible given the information available at present. Anticipatory guidance and return to care precautions were discussed and the importance of primary care follow-up was stressed and encouraged. The patient voiced understanding of the plan, indications to return, and the need for follow-up. Differential diagnosis considered: Bronchitis, Giordano virus, strep pharyngitis, allergic rhinitis, upper respiratory tract infection, sinusitis, rhinosinusitis, nasopharyngitis. viral pharyngitis, otitis media, otitis externa, otitis effusion, foreign body, cerumen impaction, viral syndrome, and influenza.? Exam findings show no acute concerns or changes; patient is non-toxic appearing and is in no distress.? Patient is appropriate for outpatient treatment and follow-up.? Medical Records Attestation: I reviewed the patient's medical records. Lab Data Attestation: I reviewed the patient's lab results. Labs: Lab Results 08/28/24 08/28/24 Range/Units 14:54 15:12 POC Influenza A Ag Negative (Negative) POC Influenza B Ag Negative (Negative) POC SARS CoV-2 Ag Negative (Negative) POC Grp A Strep Screen Negative (Negative) Discharge Plan Discharge Clinical Impression: Upper respiratory infection Qualifiers: URI type: acute nasopharyngitis (common cold) Qualified Code(s): J00 - Acute nasopharyngitis [common cold] Patient Disposition: Home, Self-Care Condition: Stable Instructions: Upper Respiratory Infection (ED) Additional Instructions: Your rapid strep swab was negative today at [facility]. A throat culture will be sent to the laboratory for further testing. If the test is positive, you will receive a phone call within 48 hours and an appropriate antibiotic will be initiated at that time. Your Covid and flu are both negative Your symptoms are likely due to a viral illness, which is not treated with antibiotics. Viral symptoms can be present for up to a few weeks. -For pain/fever, you may take: Tylenol 650-1000mg by mouth every 4-6 hours. Do not exceed 4000mg in 24 hours. Advil (Ibuprofen) 600 mg by mouth every 6 hours. Do not exceed 2400mg in 24 hours. 8 AM: Tylenol 11 AM: Ibuprofen 2 PM: Tylenol 5 PM: Ibuprofen 8 PM: Tylenol 11 PM: Ibuprofen 2 AM: Tylenol 5 AM: Ibuprofen -Antihistamine medication such as Benadryl/Zyrtec at night and Claritin/Kanchan during the day can help improve symptoms. -Use Flonase twice a day for 5 days then daily to help reduce the inflammation and dry up your sinuses. -You can also use Sudafed behind the pharmacy counter(12 or 24 hour). Be sure to drink plenty of water with these medications at least 8 ounces with every dose and it is important to drink 8 to 10 glasses of water per day. Water is a natural decongestant -Eat and drink things that are easy to swallow, like tea or soup, or popsicles. -Oral rinses such as: Salt water gargles and/or may use topical anesthetic (eg. Chloraseptic spray) or lozenges to relieve dryness or throat pain). -Frequent hand washing or hand sr. pricing analyst is one of the best ways to prevent spread of infection. -Using a vaporizer or humidifier at night will also help thin secretions and help with coughing up phlegm. Call your Primary Care Doctor and make a follow-up appointment in 3 days. If your cough worsens, you develop a fever greater than 103, you develop shaking chills, a fast heartbeat, trouble breathing and/or feel you are are breathing much faster than usual, call your Primary Care Doctor or go to the ER. Your blood pressure was elevated above 120/80 today at Urgent Care. This puts you above the threshold for follow up visit with a primary care provider. High blood pressure does not usually cause any symptoms, however it may lead to kidney failure, stroke, heart disease just to name a few if untreated . Many people are anxious when seeing a provider or nurse. As a result, you are not diagnosed with hypertension at this time unless your blood pressure is persistently high at two office visits at least one week apart. Some things that can help lower blood pressure are lifestyle modifications, such as light exercise, decreased salt in diet, and weight loss. It is important to follow up with a PCP about this within 1 week. Patient Language: Icelandic Prescriptions: New fluticasone propionate [Flonase Allergy Relief] 50 mcg/actuation spray,suspension 1 spray intranasal DAILY Qty: 16 0RF Rx Instructions: administer into each nostril No Action (DME) blood-glucose meter [BluLink Glucose Monitor System] [facility] [place] See Rx Instructions .Route Qty: 1 0RF Rx Instructions: Check blood sugar three times daily (DME) BluLink Glucose Test Strip Strip See Rx Instructions .Route Qty: 100 1RF Rx Instructions: Check blood glucose three times daily (DME) lancets 30 gauge misc See Rx Instructions .Route Qty: 100 1RF Rx Instructions: Check blood sugar three times daily (DME) pen needle, diabetic [CareTouch Pen Needle] 31 gauge x 5/16 needle See Rx Instructions .Route Qty: 100 1RF Rx Instructions: Check blood sugar 3 times daily metformin 750 mg tablet extended release 24 hr 750 mg PO BID Qty: 180 3RF insulin glargine [Basaglar KwikPen U-100 Insulin] 100 unit/mL (3 mL) insulin pen See Rx Instructions .ROUTE .COMPLEX Qty: 3 3RF Dose Instruction: ADMINISTER 10 UNITS UNDER THE SKIN EVERY EVENING Rx Instructions: ADMINISTER 10 UNITS UNDER THE SKIN EVERY EVENING lisinopril-hydrochlorothiazide 20-12.5 mg tablet 1 tablet PO DAILY Qty: 90 2RF atorvastatin 40 mg tablet 40 mg PO QHS Qty: 90 1RF Rx Instructions: NEEDS TO SCHEDULE APPOINTMENT Follow-up/Referrals: Bridget,Serge Rodrigues MD [Primary Care Provider] - 3 Days Stand Alone Forms: Work/School Release IP Time of Disposition: 15:14
[2024-08-28 15:13] LABS: EDSTREPNEGPOS1 Negative (Negative)
== END 2024-08-28 15:17 | disposition home or self-care (01) ==
PROVIDERS: Emergency Provider Nurse Practitioner Family; PCP Emergency Medicine
DX: J00 Acute nasopharyngitis [common cold] (principal); I10 Essential (primary) hypertension; Z20.822 Contact with and (suspected) exposure to COVID-19
CPT/HCPCS: 87081; 87426; 87804; 87880; 99213; G0463

== ENCOUNTER 2025-05-09 22:19 | Observation (INO) | payer SELFPAY ==
--- NOTE | ~2025-05-09 | CT_ITS ---
EXAMINATION: CT abdomen pelvis w con DATE: 05/09/2025 23:58 INDICATION: Fever. Abdominal pain. TECHNIQUE: Computed tomography (CT) of the abdomen and pelvis was performed with 100 mL Omnipaque 350 intravenous contrast. Automated exposure control and iterative reconstruction technique were employed. The dose-length product was 886.92 mGy-cm. COMPARISON: CT abdomen and pelvis 10/30/2023 FINDINGS: The visualized portions of the lung bases demonstrate mild atelectasis. No pleural effusion. The heart size is normal. No pericardial effusion. The liver demonstrates surface nodularity, consistent with cirrhosis. The gallbladder is distended with gallbladder wall thickening, interrupted muco sa, stones versus sludge, and surrounding fat stranding, consistent with acute cholecystitis. Splenomegaly is noted. The pancreas, adrenal glands, and right kidney are normal. There is a 2.2 cm cyst in left kidney. The prostate is severely enlarged. There are bilateral inguinal hernias containing fat. There are changes of appendectomy. There are no dilated loops of bowel. There are no pathologically enlarged lymph nodes. There is no free intraperitoneal fluid. There is mild thoracic and lumbar spondylosis. IMPRESSION: 1. Acute cholecystitis suspicious for gangrenous cholecystitis. 2. Cirrhosis of the liver with portal venous hypertension. Reviewed, dictated and finalized at location E. ESS MANAGER
--- NOTE | ~2025-05-09 | MR_ITS ---
EXAMINATION: MR MRCP wo/w con/w 3D wo ind DATE: 05/10/2025 12:30 INDICATION: Upper bilirubin anemia. Possible choledocholithiasis. TECHNIQUE: Magnetic resonance imaging (MRI) of the abdomen was performed without and with 15 mL Multihance intravenous contrast. Sequences included coronal T2- weighted SS-FSE, coronal T2-weighted FS SS-FSE, coronal T2-weighted FS FIESTA, axial T2-weighted FS FIESTA, axial T2-weighted FIESTA, sagittal T2-weighted SS- FSE, axial T1-weighted dual-echo FSPGR, axial T2-weighted SS-FSE, axial T1- weighted LAVA, axial T2-weighted STIR FSE. Thick-slab T2-weighted FRFSE-XL images were obtained for magnetic resonance cholangiopancreatography (MRCP). Rotating maximum intensity projection 3-D reconstructions of the volumetric data were created by the technologist. Postcontrast sequences included a time course of axial T1-weighted LAVA. COMPARISON: CT dated 05/09/2025 FINDINGS: ABDOMEN MRI: Linear discoid atelectasis in the right lower lobe. Heart size is normal. No pericardial or pleural effusion. 7 mm nonenhancing T2 hyperintense cyst at the posterior dome of the liver. Suggestion of subtle liver surface nodularity suspicious for cirrhosis. There is wall thickening of the gallbladder with linear fissure appearing to extend across the mucosal surface which raises concern for necrotizing cholecystitis. Splenomegaly measuring 18.3 cm in cranial caudal length consistent with portal venous hypertension. There are also few small splenules along the anterior and medial margin of the spleen. Pancreas and bilateral adrenal glands are normal. Bilateral T2 hyperintense nonenhancing renal cysts measuring 1.9 cm at the upper pole the left kidney and a couple measuring up to 4 mm in the mid to upper right kidney. Moderate bilateral perinephric stranding. Additional stranding at the gallbladder fossa and caudal aspect of the right hepatic lobe. No hydronephrosis. Visualized portion of the bowels are unremarkable with no obstruction. No pathologically enlarged abdominal or upper pelvic lymphadenopathy. Mild thoracic and lower lumbar spondylosis. ABDOMEN MRCP: No intrahepatic biliary ductal dilation. The common bile duct is normal in caliber measuring up to 2-3 mm in maximal diameter. No evident cholelithiasis/choledocholithiasis. IMPRESSION: 1. Prominent gallbladder wall thickening with suggestion of focal discontinuities in the mucosal surface suspicious for necrotizing cholecystitis. No evident cholelithiasis/choledocholithiasis or intra-/extra-axial hepatic biliary ductal dilation. 2. Likely cirrhotic liver with splenomegaly suggesting secondary portal venous hypertension. Reviewed, dictated and finalized at location A. EL ROLLER IMPRESSION: 1. Prominent gallbladder wall thickening with suggestion of focal discontinuiti es in the mucosal surface suspicious for necrotizing cholecystitis. No evident cholelithiasis/choledocholithiasis or intra-/extra-axial hepatic biliary ductal dilation. 2. Likely cirrhotic liver with splenomegaly suggesting secondary portal venous hypertension.
--- NOTE | ~2025-05-09 | XR_ITS ---
Examination: XR chest 2V Clinical History: fever Comparison: None Technique: PA and Lateral Findings: Cardiomediastinal silhouette normal size and configuration. Lungs clear. Except minimal bibasilar atelectasis. No acute bony abnormality. IMPRESSION: 1. No acute cardiopulmonary findings. Reviewed, dictated and finalized at location R. CE MOVER
[2025-05-09 22:24] VITALS: BP 168/90; PULSE 103; RESP 18; TEMP 36.8; O2SAT 99
[2025-05-09 22:47] VITALS: BP 163/94; PULSE 97; RESP 18; O2SAT 98
[2025-05-09 22:48] VITALS: PULSE 95; RESP 19; O2SAT 98
[2025-05-09 22:55] LABS: Hematocrit 43.7 % (42.0-52.0); Hemoglobin 15.1 g/dL (14.0-18.0); Immature Granulocyte Percent A 0.6 % (0-0.5); Lymphocytes Absolute Auto 1.01 K/mm3 (0.9-3.2); Mean Corpuscular HGB Conc 34.6 g/dl (32-36); Mean Corpuscular Hemoglobin 29.4 pg (26-34); Mean Corpuscular Volume 85.0 fl (80-100); Nucleated Red Blood Cells Absolute Auto 0.000 K/mm3 (0.0-0.012); Nucleated Red Blood Cells Perc 0.0 % (0.0-0.2); Platelet Count Result 196 k/mm3 (150-375); Red Blood Count 5.14 M/mm3 (4.6-6.20); White Blood Count 16.2 K/mm3 (4.5-10.0)
--- NOTE | 2025-05-09 22:58 | ED_ITS ---
HPI - Fever General Chief Complaint: Fever <Ros Garduno PA-C - Last Filed: 05/10/25 20:05> Stated Complaint: fever <PAULETTE Wadsworth Last Filed: 05/10/25 20:05> Time Seen by Provider: 05/09/25 22:23 <PAULETTE Wadsworth Last Filed: 05/10/25 20:05> Source: patient <PAULETTE Wadsworth Last Filed: 05/10/25 20:05> Mode of arrival: ambulatory <PAULETTE Wadsworth Last Filed: 05/10/25 20:05> Limitations: no limitations <PAULETTE Wadsworth Last Filed: 05/10/25 20:05> History of Present Illness HPI Narrative: This is a 55-year-old male that presents to the emergency department for fevers. Ongoing over the last 3 days. Reports initially he experience abdominal pain, nausea and vomiting. Was evaluated at another ER. Had blood work, CT scan. Was discharged home with Derek. He has continued to have aching and fevers. He additionally endorses he does not currently have a PCP and needs his chronic medications refilled. <PAULETTE Wadsworth Last Filed: 05/10/25 20:05> Related Data Home Medications: Home Medications ?Medication ?Instructions ?Recorded ?Confirmed ?Last Taken ?Type insulin glargine 100 unit/mL (3 10 unit subcut HS 05/0105/10/25 Unknown History mL) subcutaneous pen (Basaglar KwikPen U-100 Insulin) <PAULETTE Wadsworth Last Filed: 05/10/25 20:05> Allergies/Adverse Reactions: Allergies Allergy/AdvReac Type Severity Reaction Status Date / Time Cephalosporins Allergy Mild Joint Pain Verified 05/10/25 04:03 <PAULETTE Wadsworth Last Filed: 05/10/25 20:05> Review of Systems 2 Review of Systems: All systems reviewed & are unremarkable except as noted in HPI and below <PAULETTE Wadsworth Last Filed: 05/10/25 20:05> [facility] Past Medical History Medical History: Medical History (Updated 05/10/25 @ 05:12 by Isamar March DO) Diabetic retinopathy Type 2 diabetes mellitus treated with insulin Diabetic neuropathy Low back pain with sciatica Right sided sciatica Allergic rhinitis Obesity (BMI 30.0-34.9) Hypertension <Ros Garduno PA-C - Last Filed: 05/10/25 20:05> Surgical History Surgical History: Surgical History (Updated 05/10/25 @ 02:06 by Isamar March DO) Normal screening colonoscopy (10/2023) History of laparoscopic appendectomy (10/30/23) Dr. Cunha <Ros Garduno PA-C - Last Filed: 05/10/25 20:05> Family History Family History: Family History (Updated 05/10/25 @ 05:20 by Isamar March DO) Father Diabetes mellitus Myocardial infarct Hypertension Liver cancer Age older than 80 years CKD (chronic kidney disease) Mother Hypertension Thyroid disorder Lung cancer Sibling Non-alcoholic cirrhosis Hemolytic anemia Other Cerebrovascular accident <Ros Garduno PA-C - Last Filed: 05/10/25 20:05> Social History Social History: Social History (Updated 05/10/25 @ 05:14 by Isamar March DO) Social History: The patient is single and lives alone. He is a lifelong nonsmoker and rarely drinks alcohol only in small amounts. 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 He denies any illicit substance use. He is a lifelong nonsmoker. He does not have any pets. Code status: Full code (he would not want tracheostomy, long-term ventilator support or a G-tube) Surrogate decision maker: Patient chooses his father or brother has his surrogate decision maker. 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 HEAD: Normocephalic, atraumatic. EYES: EOMI. ENT: Nares clear, no rhinorrhea or epistaxis. Mucous membranes moist. Oropharynx without tonsillar hypertrophy exudate or other lesions. Bilateral TMs pearly chawla non-bulging NECK: Supple. No adenopathy or masses. CHEST: Clear to auscultation. No respiratory distress. No wheezes rales or rhonchi HEART: Regular rate and rhythm. No murmur heard. Normal peripheral pulses. ABDOMEN: Soft, nondistended, normal active bowel sounds. Tender to palpation in the epigastrium, without guarding EXTREMITIES: Normal range of motion. No edema. SKIN: Warm, dry, no rash. NEURO: No focal deficits. Alert and oriented x3. PSYCH: Normal mood and affect <Ros Garduno PA-C - Last Filed: 05/10/25 20:05> Course JACKHAMMER OPERATOR/PA Physician Supervision This visit was performed by both a physician and an Advanced Practice Provider. I performed all aspects of the Medical Decision Making as documented. <Wang Finnegan DO - Last Filed: 05/10/25 20:26> Consultations Consultation #1: Spoke with general surgery who will consult <Ros Garduno PA-C - Last Filed: 05/10/25 20:05> Date: 05/10/25 <PAULETTE Wadsworth Last Filed: 05/10/25 20:05> Vital Signs Vital signs: Vital Signs Temperature 98.3 F 05/09/25 22:24 Pulse Rate 103 H 05/09/25 22:24 Respiratory Rate 18 05/09/25 22:24 Blood Pressure 168/90 H 05/09/25 22:24 Pulse Oximetry 99 05/09/25 22:24 Temperature 98.4 F 05/10/25 14:00 Pulse Rate 96 05/10/25 14:00 Respiratory Rate 17 05/10/25 14:00 Blood Pressure 148/85 H 05/10/25 14:00 Pulse Oximetry 99 05/10/25 14:00 Oxygen Delivery Room Air 05/10/25 08:00 <Ros Garduno PA-C - Last Filed: 05/10/25 20:05> Vital Signs Temperature 98.3 F 05/09/25 22:24 Pulse Rate 103 H 05/09/25 22:24 Respiratory Rate 18 05/09/25 22:24 Blood Pressure 168/90 H 05/09/25 22:24 Pulse Oximetry 99 05/09/25 22:24 Temperature 98.4 F 05/10/25 14:00 Pulse Rate 96 05/10/25 14:00 Respiratory Rate 17 05/10/25 14:00 Blood Pressure 148/85 H 05/10/25 14:00 Pulse Oximetry 99 05/10/25 14:00 Oxygen Delivery Room Air 05/10/25 08:00 <Wang Finnegan DO - Last Filed: 05/10/25 20:26> MDM - Fever MDM Narrative Medical decision making narrative: Patient presents emergency department for abdominal pain, nausea and vomiting. Reporting fevers over the last couple of days. Was seen at another facility and discharged with Bentyl. He is afebrile in the ER. His vitals are stable. CBC with leukocytosis to 16.2. Metabolic panel with mild hyponatremia. Patient hydrated with IV fluids. Urine without evidence of infection. COVID, influenza and RSV screens are negative. CT abdomen and pelvis showing acute cholecystitis. Patient will be admitted to the hospitalist service. General surgery will consult. Blood cultures obtained, patient started on IV antibiotics <Ros Garduno PA-C - Last Filed: 05/10/25 20:05> Patient presents emergency department for abdominal pain, nausea and vomiting. Reporting fevers over the last couple of days. Was seen at another facility and discharged with Bentyl. He is afebrile in the ER. His vitals are stable. CBC with leukocytosis to 16.2. Metabolic panel with mild hyponatremia. Patient hydrated with IV fluids. Urine without evidence of infection. COVID, influenza and RSV screens are negative. CT abdomen and pelvis showing acute cholecystitis. Patient will be admitted to the hospitalist service. General surgery will consult. Blood cultures obtained, patient started on IV antibiotics This visit was performed by both a physician and an Advanced Practice Provider. I performed all aspects of the Medical Decision Making as documented. <Wang Finnegan DO - Last Filed: 05/10/25 20:26> Differential Diagnosis Differential diagnosis: Likely fever of unknown origin, gastroenteritis, community acquired pneumonia, viral infection, sepsis, influenza and other (Cholecystitis) <Ros Garduno PA-C - Last Filed: 05/10/25 20:05> Lab Data Attestation: I reviewed the patient's lab results. <Ros Garduno PA-C - Last Filed: 05/10/25 20:05> Result diagrams: 05/10/25 06:13 05/10/25 06:13 <Ros Garduno PA-C - Last Filed: 05/10/25 20:05> Labs: Lab Results 05/09/25 05/09/25 Range/Units 22:48 23:13 WBC 16.2 H (4.5-10.0) K/mm3 RBC 5.14 (4.6-6.20) M/mm3 Hgb 15.1 D (14.0-18.0) g/dL Hct 43.7 (42.0-52.0) % MCV 85.0 (80-100) fl MCH 29.4 (26-34) pg MCHC 34.6 (32-36) g/dl RDW 12.2 (11.5-14.5) % Plt Count 196 (150-375) k/mm3 MPV 9.9 (7.4-10.4) fl Immature Gran % (Auto) 0.6 H (0-0.5) % Neut % (Auto) 84.3 H (45.5-73.1) % Lymph % (Auto) 6.2 L (18.3-44.2) % Johnson % (Auto) 8.2 (2.6-8.5) % Eos % (Auto) 0.5 (0-4.4) % Baso % (Auto) 0.2 (0.2-1.2) % Lymph # (Auto) 1.01 (0.9-3.2) K/mm3 Johnson # (Auto) 1.3 H (0.1-0.6) K/mm3 Eos # (Auto) 0.1 (0-0.3) K/mm3 Baso # (Auto) 0.0 (0.0-0.1) K/mm3 Abs Immat Gran (auto) 0.10 H (0.00-0.031) K/mm3 Absolute Neuts (auto) 13.6 H (1.3-6.7) K/mm3 Absolute Nucleated RBC 0.000 (0.0-0.012) K/mm3 Nucleated RBC % 0.0 (0.0-0.2) % PT 16.1 H (11.1-14.7) Seconds INR 1.3 APTT 34.1 (22.3-36.8) Seconds Sodium 127 L (137-145) mmol/L Potassium 3.5 (3.4-5.0) mmol/L Chloride 91 L (98-107) mmol/L Carbon Dioxide 27 (22-30) mmol/L Anion Gap 9 (4-12) mmol/L BUN 15 (9-20) mg/dL Creatinine 1.03 (0.7-1.3) mg/dL Estim Creat Clear Calc 83 ml/min Estimated GFR > 60 (59 - ) Glucose 166 H (65-110) mg/dL Lactic Acid 1.2 (0.7-2.0) mmol/L Calcium 8.9 (8.4-10.2) mg/dL Total Bilirubin 3.1 H (0.2-1.3) mg/dL AST 33 (17-59) U/L ALT 33 (6-50) U/L Alkaline Phosphatase 109 (38-126) U/L C-Reactive Protein 12.8 H (<1.0) mg/dL Total Protein 7.3 (6.3-8.2) g/dL Albumin 3.9 (3.5-5.1) g/dL Lipase 19 L (23-300) U/L Urine Color Yellow (Yellow) Urine Appearance Clear (Clear) Urine pH 5.5 (5.0-9.0) Ur Specific [place] 1.011 (1.001-1.035) Urine Protein Trace (Negative) mg/dL Urine Glucose (UA) 1+ H (Negative) mg/dL Urine Ketones 1+ H (Negative) mg/dL Ur Blood (Man) 2+ H (Negative) Urine Nitrate Negative (Negative) Urine Bilirubin Negative (Negative) Urine Urobilinogen 1.0 (<2.0) mg/dL Leukocyte Esterase Rfl Negative (Negative) JACKELINE/UL Urine RBC 6-10 H (0-2) /hpf Urine WBC 0-5 (0-3) /hpf Ur Squamous Epith Cells None seen (Few) /hpf Urine Bacteria None seen /hpf Urine Casts 0-2 Influenza A (RT-PCR) Negative (Negative) Influenza B (RT-PCR) Negative (Negative) RSV (RT-PCR) Negative (Negative) SARS-CoV-2 RNA (RT-PCR) Negative (Negative) <Ros Garduno PA-C - Last Filed: 05/10/25 20:05> Lab Results 05/09/25 05/09/25 Range/Units 22:48 23:13 WBC 16.2 H (4.5-10.0) K/mm3 RBC 5.14 (4.6-6.20) M/mm3 Hgb 15.1 D (14.0-18.0) g/dL Hct 43.7 (42.0-52.0) % MCV 85.0 (80-100) fl MCH 29.4 (26-34) pg MCHC 34.6 (32-36) g/dl RDW 12.2 (11.5-14.5) % Plt Count 196 (150-375) k/mm3 MPV 9.9 (7.4-10.4) fl Immature Gran % (Auto) 0.6 H (0-0.5) % Neut % (Auto) 84.3 H (45.5-73.1) % Lymph % (Auto) 6.2 L (18.3-44.2) % Johnson % (Auto) 8.2 (2.6-8.5) % Eos % (Auto) 0.5 (0-4.4) % Baso % (Auto) 0.2 (0.2-1.2) % Lymph # (Auto) 1.01 (0.9-3.2) K/mm3 Johnson # (Auto) 1.3 H (0.1-0.6) K/mm3 Eos # (Auto) 0.1 (0-0.3) K/mm3 Baso # (Auto) 0.0 (0.0-0.1) K/mm3 Abs Immat Gran (auto) 0.10 H (0.00-0.031) K/mm3 Absolute Neuts (auto) 13.6 H (1.3-6.7) K/mm3 Absolute Nucleated RBC 0.000 (0.0-0.012) K/mm3 Nucleated RBC % 0.0 (0.0-0.2) % PT 16.1 H (11.1-14.7) Seconds INR 1.3 APTT 34.1 (22.3-36.8) Seconds Sodium 127 L (137-145) mmol/L Potassium 3.5 (3.4-5.0) mmol/L Chloride 91 L (98-107) mmol/L Carbon Dioxide 27 (22-30) mmol/L Anion Gap 9 (4-12) mmol/L BUN 15 (9-20) mg/dL Creatinine 1.03 (0.7-1.3) mg/dL Estim Creat Clear Calc 83 ml/min Estimated GFR > 60 (59 - ) Glucose 166 H (65-110) mg/dL Lactic Acid 1.2 (0.7-2.0) mmol/L Calcium 8.9 (8.4-10.2) mg/dL Total Bilirubin 3.1 H (0.2-1.3) mg/dL AST 33 (17-59) U/L ALT 33 (6-50) U/L Alkaline Phosphatase 109 (38-126) U/L C-Reactive Protein 12.8 H (<1.0) mg/dL Total Protein 7.3 (6.3-8.2) g/dL Albumin 3.9 (3.5-5.1) g/dL Lipase 19 L (23-300) U/L Urine Color Yellow (Yellow) Urine Appearance Clear (Clear) Urine pH 5.5 (5.0-9.0) Ur Specific [place] 1.011 (1.001-1.035) Urine Protein Trace (Negative) mg/dL Urine Glucose (UA) 1+ H (Negative) mg/dL Urine Ketones 1+ H (Negative) mg/dL Ur Blood (Man) 2+ H (Negative) Urine Nitrate Negative (Negative) Urine Bilirubin Negative (Negative) Urine Urobilinogen 1.0 (<2.0) mg/dL Leukocyte Esterase Rfl Negative (Negative) JACKELINE/UL Urine RBC 6-10 H (0-2) /hpf Urine WBC 0-5 (0-3) /hpf Ur Squamous Epith Cells None seen (Few) /hpf Urine Bacteria None seen /hpf Urine Casts 0-2 Influenza A (RT-PCR) Negative (Negative) Influenza B (RT-PCR) Negative (Negative) RSV (RT-PCR) Negative (Negative) SARS-CoV-2 RNA (RT-PCR) Negative (Negative) <Wang Finnegan DO - Last Filed: 05/10/25 20:26> Imaging Data My impression: Chest x-ray: Atypical infection <Ros Garduno PA-C - Last Filed: 05/10/25 20:05> Radiologist's impression: CT abdomen and pelvis: Acute cholecystitis with possible early or impending perforation, gallbladder wall irregularity and discontinuous enhancing <Ros Garduno PA-C - Last Filed: 05/10/25 20:05> Critical Care Time Critical Care Time Critical Care Time: No <Ros Garduno PA-C - Last Filed: 05/10/25 20:05> Discharge Plan Discharge Clinical Impression: Acute cholecystitis <PAULETTE Wadsworth Last Filed: 05/10/25 20:05> Patient Disposition: Still a Patient <PAULETTE Wadsworth Last Filed: 05/10/25 20:05> Condition: Serious <PAULETTE Wadsworth Last Filed: 05/10/25 20:05>
[2025-05-09 23:01] VITALS: BP 155/92; PULSE 98; RESP 20; O2SAT 100
[2025-05-09 23:10] LABS: INR 1.3; Prothrombin Time 16.1 Seconds (11.1-14.7)
[2025-05-09 23:11] LABS: Alanine Aminotransferase 33 U/L (6-50); Albumin Level 3.9 g/dL (3.5-5.1); Alkaline Phosphatase 109 U/L (38-126); Anion Gap 9 mmol/L (4-12); Aspartate Amino Transferase 33 U/L (17-59); Bilirubin,Total 3.1 mg/dL (0.2-1.3); Blood Urea Nitrogen 15 mg/dL (9-20); Calcium 8.9 mg/dL (8.4-10.2); Carbon Dioxide 27 mmol/L (22-30); Chloride 91 mmol/L (98-107); Estimated CRCL calculation 83 ml/min; Estimated Glomerular Filt Rate > 60; Glucose 166 mg/dL (65-110); Lipase 19 U/L (23-300); Partial Thromboplastin Time 34.1 Seconds (22.3-36.8); Potassium 3.5 mmol/L (3.4-5.0); Sodium 127 mmol/L (137-145); Total Protein 7.3 g/dL (6.3-8.2)
[2025-05-09 23:16] VITALS: BP 160/86; PULSE 97; RESP 18; O2SAT 97
[2025-05-09] MEDS: SODIUM CHLORIDE 0.9% IV 1,000 ML 999 ML IV CONT (23:17)
[2025-05-09 23:29] LABS: CRP 12.8 mg/dL (<1.0); Influenza A QL RT-PCR Negative (Negative); Influenza B QL RT-PCR Negative (Negative); RSV RNA, RT-PCR Negative (Negative); SARS-CoV-2 RNA PCR Negative (Negative)
[2025-05-09 23:30] LABS: Add Urine Microscopic? YES; Appearance Urine Clear (Clear); Glucose Urine UA 1+ mg/dL (Negative); Leukocyte Esterase Ur Negative LEU/UL (Negative); Nitrate Urine Negative (Negative); Non Pathogenic Casts 0-2; Specific Grav Ur 1.011 (1.001-1.035)
[2025-05-10] VITALS (12 sets, daily range): BP systolic 138–162; BP diastolic 80–89; PULSE 79–101; RESP 17–24; TEMP 36.5–37.6; O2SAT 95–100; BMI 30.2
[2025-05-10] MEDS: PIPERACILLIN/TAZOBACTAM SOD 3.375 GM in SODIUM CHLORIDE 0.9% IV 50 ML 100 ML IVPB ×5 (01:14→23:34)
[2025-05-10] MEDS: KETOROLAC 15 MG/ML VIAL (*BKC) IV PUSH ×2 (01:24→20:37)
[2025-05-10] MEDS: SODIUM CHLORIDE 0.9% IV 1,000 ML 999 ML IV CONT (01:24)
--- NOTE | 2025-05-10 02:02 | PM.IMHP ---
H&P: HPI History of Present Illness Date/Time: 05/10/25 02:02 Chief Complaint: Fever Narrative: Pleasant, loquacious 55-year-old male with a past medical history of obesity, type 2 diabetes mellitus on insulin therapy, essential hypertension, and prior appendectomy who presented to the ER with persistent fever. He reports that 5 days ago he had sudden unprovoked nausea vomiting that occurred while he was driving to work. It was so severe he could not even walk and work any anti go straight to the ER at [facility]. He had a CT and labs which were unremarkable and was discharged with Bentyl. The patient denied having any diarrhea. He did report feeling full loaded. After a had been vomiting for a while he developed pain up into his chest a but he relates this as she was dry heaves. He reported that the next day he developed fevers in his had intermittent fever since that time with T-max of 102.5?. He reports generalized body aches. He states that his abdominal pain was generalized. But on exam patient is pain is more localized to the right upper quadrant. He stated that when the pain 1st started it was in the epigastric region and radiating through to the back. He had been fasting at the time of onset of his symptoms. He has not had much of an appetite. He denies any hematemesis coffee-ground emesis. He has never had similar symptoms before. He denies any cough or congestion. He has been having a slight headache but he thinks that this is due to dehydration and his other symptoms. He has diabetes but does not check his blood glucoses very frequently. He has not had a refill on his Lantus in quite some time but still has a home supply. He takes 10 units nightly. He also still has some metformin although does not live like this is been refilled since Review of Systems Review of Systems: 12 systems were reviewed with pertinent positives and negatives per HPI. Except as documented in the HPI, all other systems were reviewed and are negative. FOR[facility]LY [facility] Past Medical History Medical History (Updated 05/10/25 @ 05:12 by Isamar March DO) Diabetic retinopathy Type 2 diabetes mellitus treated with insulin Diabetic neuropathy Low back pain with sciatica Right sided sciatica Allergic rhinitis Obesity (BMI 30.0-34.9) Hypertension Surgical History Surgical History (Updated 05/10/25 @ 02:06 by Isamar March DO) Normal screening colonoscopy (10/2023) History of laparoscopic appendectomy (10/30/23) Dr. Cunha Family History Family History Father Diabetes mellitus Myocardial infarct Hypertension Liver cancer Age older than 80 years CKD (chronic kidney disease) Mother Hypertension Thyroid disorder Lung cancer Sibling Non-alcoholic cirrhosis Hemolytic anemia Other Cerebrovascular accident Social History Social History (Updated 05/10/25 @ 05:14 by Isamar March DO) Social History: The patient is single and lives alone. He is a lifelong nonsmoker and rarely drinks alcohol only in small amounts. 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 He denies any illicit substance use. He is a lifelong nonsmoker. He does not have any pets. Code status: Full code (he would not want tracheostomy, long-term ventilator support or a G-tube) Surrogate decision maker: Patient chooses his father or brother has his surrogate decision maker. 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 Gender identity (if verbalized by the patient): Male Sexual Orientation (if Verbalized by the Patient): Straight or Heterosexual Spiritual care concerns: Yes Agree to blood products: No Meds Home Medications and Allergies Home Medications ?Medication ?Instructions ?Recorded ?Confirmed ?Type blood sugar diagnostic (BluLink #100 09/13/23 05/10/25 Rx Glucose Test Strip) blood-glucose meter (BluLink #1 09/13/23 05/10/25 Rx Glucose Monitoring System) lancets 30 gauge #100 09/13/23 05/10/25 Rx pen needle, diabetic 31 gauge x #100 09/13/23 05/10/25 Rx 5/16 (CareTouch Pen Needle) metformin 750 mg tablet,extended 750 mg PO BID #180 tabs 04/16/24 05/10/25 Rx release 24 hr lisinopril 20 1 tablet PO DAILY #90 tabs 05/21/24 05/10/25 Rx mg-hydrochlorothiazide 12.5 mg tablet atorvastatin 40 mg tablet 40 mg PO QHS #90 tabs 06/26/24 05/10/25 Rx insulin glargine 100 unit/mL (3 10 unit subcut HS 05/10/25 05/10/25 History mL) subcutaneous pen (Basaglar KwikPen U-100 Insulin) Allergies Allergy/AdvReac Type Severity Reaction Status Date / Time Cephalosporins Allergy Mild Joint Pain Verified 05/10/25 04:03 Vital Signs Vital Signs - 24 hr 05/09/25 22:24 05/09/25 22:47 05/09/25 22:48 Temperature 98.3 F Pulse Rate 103 H 97 95 Respiratory Rate 18 18 19 Blood Pressure 168/90 H 163/94 H Pulse Oximetry 99 98 98 05/09/25 23:01 05/09/25 23:16 05/10/25 00:09 Temperature Pulse Rate 98 97 101 H Respiratory Rate 20 18 23 H Blood Pressure 155/92 H 160/86 H 156/89 H Pulse Oximetry 100 97 97 Exam Narrative: Weight 96.2 kg BMI 30.4 Const: Other: Obese, mildly ill-appearing, appears stated age HENMT: Other: Mucous membranes are tacky, no oral pharyngeal erythema, no scleral icterus, no conjunctival pallor Eyes: Other: Pupils are equal and reactive, no scleral icterus, no conjunctival pallor Neck: Other: Large neck circumference, no lymphadenopathy Resp: Other: Clear to auscultation bilaterally, no increased work of breathing Cardio: Other: Regular rate, regular rhythm, 2+ bilateral radial pedal pulses, no murmur GI: Other: Distended, positive Tran sign, normoactive bowel sounds, no rebound Skin: Other: No jaundice, warm to touch Neuro: Other: Alert oriented, speech is clear, no facial asymmetry Extrem: Other: Patient's feet are not examined as he had is socks and shoes in place and nursing staff was trying to transport the patient up to his room, 5/5 brand analyst strength bilaterally, moves all extremities equally Psych: Other: Appropriate mood and affect, pleasant and cooperative, judgment and insight intact H&P: Results Labs Labs: Laboratory Tests 05/09/25 22:48 05/09/25 22:48 05/09/25 05/09/25 22:48 23:13 WBC 16.2 H RBC 5.14 Hgb 15.1 D Hct 43.7 MCV 85.0 MCH 29.4 MCHC 34.6 RDW 12.2 Plt Count 196 MPV 9.9 Immature Gran % (Auto) 0.6 H Neut % (Auto) 84.3 H Lymph % (Auto) 6.2 L [place] % (Auto) 8.2 Eos % (Auto) 0.5 Baso % (Auto) 0.2 Lymph # (Auto) 1.01 [place] # (Auto) 1.3 H Eos # (Auto) 0.1 Baso # (Auto) 0.0 Abs Immat Gran (auto) 0.10 H Absolute Neuts (auto) 13.6 H Absolute Nucleated RBC 0.000 Nucleated RBC % 0.0 PT 16.1 H INR 1.3 APTT 34.1 Sodium 127 L Potassium 3.5 Chloride 91 L Carbon Dioxide 27 Anion Gap 9 BUN 15 Creatinine 1.03 Estim Creat Clear Calc 83 Estimated GFR > 60 Glucose 166 H Lactic Acid 1.2 Calcium 8.9 Total Bilirubin 3.1 H AST 33 ALT 33 Alkaline Phosphatase 109 C-Reactive Protein 12.8 H Total Protein 7.3 Albumin 3.9 Lipase 19 L Urine Color Yellow Urine Appearance Clear Urine pH 5.5 Ur Specific [place] 1.011 Urine Protein Trace Urine Glucose (UA) 1+ H Urine Ketones 1+ H Ur Blood (Man) 2+ H Urine Nitrate Negative Urine Bilirubin Negative Urine Urobilinogen 1.0 Leukocyte Esterase Rfl Negative Urine RBC 6-10 H Urine WBC 0-5 Ur Squamous Epith Cells None seen Urine Bacteria None seen Urine Casts 0-2 Influenza A (RT-PCR) Negative Influenza B (RT-PCR) Negative RSV (RT-PCR) Negative SARS-CoV-2 RNA (RT-PCR) Negative CT of the abdomen pelvis with contrast: Personally reviewed interpreted demonstrated distended gallbladder with gallbladder wall thickening concerning for acute cholecystitis. Stat rad interpretation as he additional findings of possible early or impending perforation. Chest x-ray: Personally reviewed interpreted demonstrated no acute cardiopulmonary process. Radiology interpretation pending. Assessment and Plan Assessment and plan (1) Acute cholecystitis: Code(s): K81.0 - Acute cholecystitis Status: Acute (2) Sepsis: Qualifiers: Sepsis acute organ dysfunction status: without acute organ dysfunction Sepsis type: sepsis due to unspecified organism Qualified Code(s): A41.9 - Sepsis, unspecified organism Code(s): A41.9 - Sepsis, unspecified organism Status: Acute (3) Diabetes mellitus with diabetic neuropathy, with long-term current use of insulin: Qualifiers: Diabetes mellitus type: type 2 Qualified Code(s): E11.40 - Type 2 diabetes mellitus with diabetic neuropathy, unspecified; Z79.4 - longterm (current) use of insulin Code(s): E11.40 - Type 2 diabetes mellitus with diabetic neuropathy, unspecified; Z79.4 - terminal 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 The patient meets the criteria with tachycardia, fever, tachypnea and leukocytosis. He received 2 L IV fluid bolus in the ER with resolution of his tachycardia. Blood cultures were obtained and are pending. He was started on empiric antibiotic therapy with Zosyn. Patient will be made NPO in general surgery has been consulted. Patient will be continued on maintenance IV fluids, p.r.n. IV pain medications and antiemetics. Patient's bilirubin is mildly elevated again likely due to his acute cholecystitis but no evidence of transaminitis and no evidence of gallstones noted on imaging. Will repeat CBC and CMP in a.m.. Patient does have type 2 diabetes mellitus with history of being treated with insulin therapy. It looks like it insulin not been filled since 2023. But he reports he has been taking his home Lantus and metformin prior to presentation to the hospital.. He does have some mild hyperglycemia with glucoses in the 160s to 180s. Will check hemoglobin A1c with next set of labs. Will place patient on moderate dose sliding scale insulin with Accu-Cheks q.6 hours while NPO. Hypoglycemia protocol has been ordered. He has a history of essential hypertension. His lisinopril/hydrochlorothiazide according to external medication records from pharmacy does not localize the patient's antihypertensive has been filled since August of 2024 he stated that he still had some refills on the medication and only ran out of his antihypertensive about a week ago. His blood pressures are currently modestly elevated. Will provide p.r.n. IV medications while NPO for systolic blood pressures greater than 160. He reports he just started a new job and his insurance will not kick in until July. He does report intermittent snoring, daytime sleepiness and he is open obese in has a large neck circumference. Will order ApneaLink for tomorrow night. Patient has been admitted as observation status. MEDICAL DECISION MAKING NARRATIVE -Spoke with the ED provider in detail regarding patient's evaluation, workup and management -Patient seen and examined at bedside -Collaborated with patient's nurse at the bedside in detail and addressed all concerns -Labs, electrolytes, radiology, investigations and test results personally reviewed and interpreted unless otherwise specified -ED/Consult/Nursing/Ancilliary notes on the chart reviewed and appreciated -Spoke with patient at bedside and diagnosis and plan of care was discussed. All questions answered. Quality VTE Prophylaxis VTE prophylaxis: pharmacologic ordered (Lovenox 40 mg subQ daily.) Hospitalist [facility] Advance Care Plan I have confirmed that the patient's Advanced Care Plan is present, code status is documented, or surrogate decision maker is listed in patient medical record.: Yes Medication Reconciliation I have utilized all available resources to obtain, update and review the patients current medications (includes all prescriptions, OTC, herbals, cannabis, and nutritional supplements).: Yes
[2025-05-10] MEDS: SODIUM CHLORIDE 0.9% IV 1,000 ML 125 ML IV CONT ×3 (02:14→20:31)
[2025-05-10 06:42] LABS: Hematocrit 38.7 % (42.0-52.0); Hemoglobin 13.5 g/dL (14.0-18.0); Immature Granulocyte Percent A 0.8 % (0-0.5); Lymphocytes Absolute Auto 0.55 K/mm3 (0.9-3.2); Mean Corpuscular HGB Conc 34.9 g/dl (32-36); Mean Corpuscular Hemoglobin 29.8 pg (26-34); Mean Corpuscular Volume 85.4 fl (80-100); Nucleated Red Blood Cells Absolute Auto 0.000 K/mm3 (0.0-0.012); Nucleated Red Blood Cells Perc 0.0 % (0.0-0.2); Platelet Count Result 161 k/mm3 (150-375); Red Blood Count 4.53 M/mm3 (4.6-6.20); White Blood Count 11.9 K/mm3 (4.5-10.0)
[2025-05-10 06:50] LABS: Hemoglobin A1C 7.0 % (<5.7)
--- NOTE | 2025-05-10 06:54 | P.PNIM_ITS ---
Progress Note: A&P Assessment and Plan (1) Acute cholecystitis: Code(s): K81.0 - Acute cholecystitis Status: Acute Assessment and Plan: * Monitor vital signs, I and O's, check stool output, neuro status and patient is a fall risk * Monitor serum electrolytes and CBC * Monitor lactic acid * IV pain management * Gentle IV fluid resuscitation * Start Zosyn 3.375 mg every 6 hours * Consult general surgery for further evaluation, appreciate assistance and recommendation * Diet:NPO * Plan for MRCP today * Depending on these results - rigoberto tube versus cholecystectomy (2) Sepsis: Qualifiers: Sepsis acute organ dysfunction status: without acute organ dysfunction Sepsis type: sepsis due to unspecified organism Qualified Code(s): A41.9 - Sepsis, unspecified organism Code(s): A41.9 - Sepsis, unspecified organism Status: Acute Assessment and Plan: * Meets SIRS criteria: tachycardia, fever, tachypnea and leukocytosis * lactic acid: 1.2 * 30 mL/kg = 2 L IV fluid bolus * suspected source: Cholecystitis * blood cultures drawn on 05/10 * UA: 6-10 RBC, 2+ blood, 1+ ketones * CXR: No acute cardiopulmonary findings (3) Diabetes mellitus with diabetic neuropathy, with long-term current use of insulin: Qualifiers: Diabetes mellitus type: type 2 Qualified Code(s): E11.40 - Type 2 diabetes mellitus with diabetic neuropathy, unspecified; 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 Code(s): E11.40 - Type 2 diabetes mellitus with diabetic neuropathy, unspecified; Z79.4 - [facility] (current) use of insulin Status: Acute Assessment and Plan: * Hypoglycemia protocol * POC blood glucose ACHS * Home medication - none * Correct regimen ordered - moderate dose TIDWM and HS * A1C 7.0% (4) Hypertension: Qualifiers: Hypertension type: primary hypertension Qualified Code(s): I10 - Essential (primary) hypertension Code(s): I10 - Essential (primary) hypertension Status: Chronic Assessment and Plan: * Patient's blood pressure was reviewed on 05/10 * Blood pressure remains well controlled * Will continue current medications * 154/84 Subjective Date/time seen: 05/10/25 06:54 Interval history: 55-year-old male with a past medical history of obesity, type 2 diabetes mellitus on insulin therapy, essential hypertension, and prior appendectomy who presented to the ER with persistent fever. He reports that 5 days ago he had sudden unprovoked nausea vomiting that occurred while he was driving to work. 05/10/2025 Patient sitting comfortably in bed at time of examination. Reports some mild upper abdominal discomfort along with some nausea but otherwise feels good today. Plan to obtain MRCP today, keep patient NPO and on IV antibiotics. Depending on results of MRCP, plan for rigoberto tube versus cholecystectomy. Otherwise leukocytosis is improving and patient remains afebrile. Review of Systems Review of Systems: 12 systems were reviewed with pertinent positives and negatives per HPI. Except as documented in the HPI, all other systems were reviewed and are negative. Exam Narrative: Weight 96.2 kg BMI 30.4 Const: Other: Obese, mildly ill-appearing, appears stated age HENMT: Other: Mucous membranes are tacky, no oral pharyngeal erythema, no scleral icterus, no conjunctival pallor Eyes: Other: Pupils are equal and reactive, no scleral icterus, no conjunctival pallor Neck: Other: Large neck circumference, no lymphadenopathy Resp: Other: Clear to auscultation bilaterally, no increased work of breathing Cardio: Other: Regular rate, regular rhythm, 2+ bilateral radial pedal pulses, no murmur GI: Other: Distended, positive Tran sign, normoactive bowel sounds, no rebound Skin: Other: No jaundice, warm to touch Neuro: Other: Alert oriented, speech is clear, no facial asymmetry Extrem: Other: Patient's feet are not examined as he had is socks and shoes in place and nursing staff was trying to transport the patient up to his room, 5/5 research engineer strength bilaterally, moves all extremities equally Psych: Other: Appropriate mood and affect, pleasant and cooperative, judgment and insight intact Objective Data Vital Signs Vital Signs: Vital Signs - 24 hr 05/09/25 22:24 05/09/25 22:47 05/09/25 22:48 Temperature 98.3 F Pulse Rate 103 H 97 95 Respiratory Rate 18 18 19 Blood Pressure 168/90 H 163/94 H Pulse Oximetry 99 98 98 Oxygen Delivery 05/09/25 23:01 05/09/25 23:16 05/10/25 00:09 Temperature Pulse Rate 98 97 101 H Respiratory Rate 20 18 23 H Blood Pressure 155/92 H 160/86 H 156/89 H Pulse Oximetry 100 97 97 Oxygen Delivery 05/10/25 00:31 05/10/25 01:58 05/10/25 02:09 Temperature 99.7 F H Pulse Rate 100 95 96 Respiratory Rate 20 20 24 H Blood Pressure 162/89 H 149/84 H 149/84 H Pulse Oximetry 95 100 95 Oxygen Delivery 05/10/25 02:31 05/10/25 03:01 05/10/25 03:57 Temperature 98.3 F Pulse Rate 93 94 93 Respiratory Rate 19 17 18 Blood Pressure 138/85 152/87 H 154/84 H Pulse Oximetry 95 97 100 Oxygen Delivery 05/10/25 04:26 Temperature Pulse Rate Respiratory Rate Blood Pressure Pulse Oximetry Oxygen Delivery Room Air Intake/Output Intake/Output: Intake & Output 05/07/25 05/08/25 05/09/25 05/10/25 23:59 23:59 23:59 23:59 Intake Total 2049 Balance 2049 Meds/Results Medications: Active Medications Generic Name Dose Route Start Last Admin Trade Name Freq PRN Reason Stop Dose Admin Dextrose 12.5 gm 05/10/25 01:59 Dextrose 50% 25 Gm/50 Ml Syringe IV PUSH PRN PRN Hypoglycemia Protocol Glucagon 1 mg 05/10/25 01:59 Glucagon For Inj 1 Mg Vial IM PRN PRN Hypoglycemia Protocol Glucose 15 gm 05/10/25 01:59 Glucose Oral Gel 15 Gm Of Glucse In 37.5 Gm Tube PO PRN PRN Hypoglycemia Protocol Hydralazine HCl 10 mg 05/10/25 05:08 Hydralazine Hcl 20 Mg/Ml Vial IV PUSH Q4H PRN SBP greater than 160 Piperacillin Sod/Tazobactam 50 mls @ 100 mls/hr 05/10/25 06:30 05/10/25 05:36 Sod 3.375 gm/ Sodium Chloride IVPB 100 mls/hr Q6HR ABIMAEL Administration Sodium Chloride 1,000 mls @ 125 mls/hr 05/10/25 02:00 05/10/25 02:14 Normal Saline Iv IV CONT 125 mls/hr .Q8H ABIMAEL Administration Dextrose 1,000 mls @ 100 mls/hr 05/10/25 01:59 Dextrose 5% 1,000 Ml IVPB PRN PRN Hypoglycemia Protocol Insulin Aspart 3 - 6 units 05/10/25 06:00 Insulin Aspart (*Bkc) 100 Units/Ml SUB-Q Q6HR ABIMAEL Protocol Ketorolac Tromethamine 15 mg 05/10/25 02:08 Ketorolac 15 Mg/Ml Vial (*Bkc) IV PUSH Q6H PRN Pain Rated 4-6 Morphine Sulfate 4 mg 05/10/25 01:58 Morphine Sulfate (*Crx) 4 Mg/Ml Inj IV PUSH Q2H PRN Pain Rated 7-10 Radiology Results: ITS Impressions Abdomen/Pelvis CT 05/10/25 06:33 IMPRESSION: 1. Acute cholecystitis suspicious for gangrenous cholecystitis. 2. Cirrhosis of the liver with portal venous hypertension. Chest X-Ray 05/10/25 06:33 IMPRESSION: 1. No acute cardiopulmonary findings. Labs Labs: Laboratory Results - last 24 hr 05/09/25 05/09/25 05/10/25 22:48 23:13 02:13 WBC 16.2 H RBC 5.14 Hgb 15.1 D Hct 43.7 MCV 85.0 MCH 29.4 MCHC 34.6 RDW 12.2 Plt Count 196 MPV 9.9 Immature Gran % (Auto) 0.6 H Neut % (Auto) 84.3 H Lymph % (Auto) 6.2 L [place] % (Auto) 8.2 Eos % (Auto) 0.5 Baso % (Auto) 0.2 Lymph # (Auto) 1.01 [place] # (Auto) 1.3 H Eos # (Auto) 0.1 Baso # (Auto) 0.0 Abs Immat Gran (auto) 0.10 H Absolute Neuts (auto) 13.6 H Absolute Nucleated RBC 0.000 Nucleated RBC % 0.0 PT 16.1 H INR 1.3 APTT 34.1 Sodium 127 L Potassium 3.5 Chloride 91 L Carbon Dioxide 27 Anion Gap 9 BUN 15 Creatinine 1.03 Estim Creat Clear Calc 83 Estimated GFR > 60 Glucose 166 H POC Capillary Glucose 180 H Hemoglobin A1c Lactic Acid 1.2 Calcium 8.9 Total Bilirubin 3.1 H AST 33 ALT 33 Alkaline Phosphatase 109 C-Reactive Protein 12.8 H Total Protein 7.3 Albumin 3.9 Lipase 19 L Urine Color Yellow Urine Appearance Clear Urine pH 5.5 Ur Specific [place] 1.011 Urine Protein Trace Urine Glucose (UA) 1+ H Urine Ketones 1+ H Ur Blood (Man) 2+ H Urine Nitrate Negative Urine Bilirubin Negative Urine Urobilinogen 1.0 Leukocyte Esterase Rfl Negative Urine RBC 6-10 H Urine WBC 0-5 Ur Squamous Epith Cells None seen Urine Bacteria None seen Urine Casts 0-2 Influenza A (RT-PCR) Negative Influenza B (RT-PCR) Negative RSV (RT-PCR) Negative SARS-CoV-2 RNA (RT-PCR) Negative 05/10/25 05/10/25 06:13 06:46 WBC RBC Hgb Hct MCV MCH MCHC RDW Plt Count MPV Immature Gran % (Auto) Neut % (Auto) Lymph % (Auto) [place] % (Auto) Eos % (Auto) Baso % (Auto) Lymph # (Auto) [place] # (Auto) Eos # (Auto) Baso # (Auto) Abs Immat Gran (auto) Absolute Neuts (auto) Absolute Nucleated RBC Nucleated RBC % PT INR APTT Sodium Potassium Chloride Carbon Dioxide Anion Gap BUN Creatinine Estim Creat Clear Calc Estimated GFR Glucose POC Capillary Glucose 159 H Hemoglobin A1c 7.0 H Lactic Acid Calcium Total Bilirubin AST ALT Alkaline Phosphatase C-Reactive Protein Total Protein Albumin Lipase Urine Color Urine Appearance Urine pH Ur Specific [place] Urine Protein Urine Glucose (UA) Urine Ketones Ur Blood (Man) Urine Nitrate Urine Bilirubin Urine Urobilinogen Leukocyte Esterase Rfl Urine RBC Urine WBC Ur Squamous Epith Cells Urine Bacteria Urine Casts Influenza A (RT-PCR) Influenza B (RT-PCR) RSV (RT-PCR) SARS-CoV-2 RNA (RT-PCR) Quality VTE Prophylaxis VTE prophylaxis: pharmacologic ordered (Lovenox 40 mg subQ daily.)
[2025-05-10 07:04] LABS: Alanine Aminotransferase 28 U/L (6-50); Albumin Level 3.3 g/dL (3.5-5.1); Alkaline Phosphatase 105 U/L (38-126); Anion Gap 8 mmol/L (4-12); Aspartate Amino Transferase 30 U/L (17-59); Bilirubin,Total 2.4 mg/dL (0.2-1.3); Blood Urea Nitrogen 14 mg/dL (9-20); Calcium 7.9 mg/dL (8.4-10.2); Carbon Dioxide 22 mmol/L (22-30); Chloride 99 mmol/L (98-107); Estimated CRCL calculation 93 ml/min; Estimated Glomerular Filt Rate > 60; Glucose 160 mg/dL (65-110); Potassium 3.2 mmol/L (3.4-5.0); Sodium 129 mmol/L (137-145); Total Protein 6.1 g/dL (6.3-8.2)
[2025-05-10] MEDS: POTASSIUM CHLORIDE 20 MEQ ER TABLET PO (07:51)
--- NOTE | 2025-05-10 08:40 | PM.CNGS ---
Assessment and Plan Assessment and plan (1) Hyperbilirubinemia: Code(s): E80.6 - Other disorders of bilirubin metabolism <Martinez E. Salgado, DO - Last Filed: 05/10/25:34> Status: Acute <Martinez E. Salgado, DO - Last Filed: 05/10/25:34> (2) Acute cholecystitis: Code(s): K81.0 - Acute cholecystitis <Martinez E. Salgado, DO - Last Filed: 05/10/25:34> Status: Acute <Martinez E. Salgado, DO - Last Filed: 05/10/25:34> Assessment and Plan: Patient presented with signs of acute cholecystitis, possible gangrenous cholecystitis. He did have an elevated bilirubin that appears to be trending down. He does not appear septic, he is tender in the RUQ, but not peritoneal, pain has improved some with abx. The patient will ultimately need some intervention which has been discussed with him. We will plan to obtain MRCP. Patient to remain NPO and on abx. Depending on the results of the MRCP we will either plan for percutaneous cholecystostomy tube vs cholecystectomy. A&P discussed with Dr. Jameson <Martinez Knott. 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 Salgado, DO - Last Filed: 05/10/25:34> Code(s): E11.40 - Type 2 diabetes mellitus with diabetic neuropathy, unspecified; Z79.4 - assisted (current) use of insulin <Martinez E. Salgado, DO - Last Filed: 05/10/25:34> Status: Acute <Martinez E. Salgado, DO - Last Filed: 05/10/25:34> (4) Obesity (BMI 30.0-34.9): Code(s): E66.9 - Obesity, unspecified <Martinez E. Salgado, DO - Last Filed: 05/10/25:34> Status: Chronic <Martinez E. Salgado, DO - Last Filed: 05/10/25 09:34> History of Present Illness Consult details Consult date: 05/10/25 <Martinez Salgado DO - Last Filed: 05/10/25 09:34> 05/10/25 <Nneka Jameson MD - Last Filed: 05/10/25 15:38> Narrative: Patient is a 55 yo m with a PMH of IDDM, HLD, HTN, and obestity who presented to the hospital complaining of abdominal pain, nausea, and vomiting that started on last week. He reports he was driving to work and began having multiple episodes of emesis and sudden onset abdominal pain. He ate chicken, a baked potato, and a salad for dinner the night before. He has never had pain like this before. He does report having an appendectomy 10/[address] Cunha. He denies other intraabdominal surgeries. He did have a leukocytosis of 16.2 on admission that appears to be trending down. He does report some improvement in pain. CTAP shows acute cholecystitis with possible gangrenous cholecystitis given mucosal defect. T bili elevated at 3.1, trending down at 2.4 this am. On exam, he is TTP in RUQ, otherwise soft, ND, and nonperitoneal. <Martinez Salgado DO - Last Filed: 05/10/25 09:34> Review of Systems Review of Systems: All systems reviewed & are unremarkable except as noted in HPI and below <Martinez Salgado DO - Last Filed: 05/10/25 09:34> [facility] Past Medical History Medical History: Medical History (Updated 05/10/25 @ 05:12 by Isamar March DO) Diabetic retinopathy Type 2 diabetes mellitus treated with insulin Diabetic neuropathy Low back pain with sciatica Right sided sciatica Allergic rhinitis Obesity (BMI 30.0-34.9) Hypertension <Martinez Salgado DO - Last Filed: 05/10/25 09:34> Surgical History Surgical History: Surgical History (Updated 05/10/25 @ 02:06 by Isamar March DO) Normal screening colonoscopy (10/2023) History of laparoscopic appendectomy (10/30/23) Dr. Cunha <Martinez Salgado DO - Last Filed: 05/10/25 09:34> Family History Family History: Family History (Updated 05/10/25 @ 05:20 by Isamar March DO) Father Diabetes mellitus Myocardial infarct Hypertension Liver cancer Age older than 80 years CKD (chronic kidney disease) Mother Hypertension Thyroid disorder Lung cancer Sibling Non-alcoholic cirrhosis Hemolytic anemia Other Cerebrovascular accident <Martinez Salgado DO - Last Filed: 05/10/25 09:34> Social History Social History: Social History (Updated 05/10/25 @ 05:14 by Isamar March DO) Social History: The patient is single and lives alone. He is a lifelong nonsmoker and rarely drinks alcohol only in small amounts. 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 He denies any illicit substance use. He is a lifelong nonsmoker. He does not have any pets. Code status: Full code (he would not want tracheostomy, long-term ventilator support or a G-tube) Surrogate decision maker: Patient chooses his father or brother has his surrogate decision maker. 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 Gender identity (if verbalized by the patient): Male Sexual Orientation (if Verbalized by the Patient): Straight or Heterosexual Spiritual care concerns: Yes Agree to blood products: No <Martinez Salgado DO - Last Filed: 05/10/25 09:34> Meds Home Medications and Allergies Home medications: Home Medications ?Medication ?Instructions ?Recorded ?Confirmed ?Type blood sugar diagnostic (BluLink #100 ea 09/13/23 05/10/25 Rx Glucose Test Strip) blood-glucose meter (BluLink #1 ea 09/13/23 05/10/25 Rx Glucose Monitoring System) lancets 30 gauge #100 ea 09/13/23 05/10/25 Rx pen needle, diabetic 31 gauge x #100 ea 09/13/23 05/10/25 Rx 5/16 (CareTouch Pen Needle) metformin 750 mg tablet,extended 750 mg PO BID #180 tabs 04/16/24 05/10/25 Rx release 24 hr lisinopril 20 1 tablet PO DAILY #90 tabs 05/21/24 05/10/25 Rx mg-hydrochlorothiazide 12.5 mg tablet atorvastatin 40 mg tablet 40 mg PO QHS #90 tabs 06/26/24 05/10/25 Rx insulin glargine 100 unit/mL (3 10 unit subcut HS 05/10/25 05/10/25 History mL) subcutaneous pen (Basaglar KwikPen U-100 Insulin) <Martinez Salgado DO - Last Filed: 05/10/25 09:34> Allergies/Adverse reactions: Allergies Allergy/AdvReac Type Severity Reaction Status Date / Time Cephalosporins Allergy Mild Joint Pain Verified 05/10/25 04:03 <Martinez Salgado DO - Last Filed: 05/10/25 09:34> Vital Signs Vital Signs - 24 hr 05/09/25 22:24 05/09/25 22:47 05/09/25 22:48 Temperature 98.3 F Pulse Rate 103 H 97 95 Respiratory Rate 18 18 19 Blood Pressure 168/90 H 163/94 H Pulse Oximetry 99 98 98 Oxygen Delivery 05/09/25 23:01 05/09/25 23:16 05/10/25 00:09 Temperature Pulse Rate 98 97 101 H Respiratory Rate 20 18 23 H Blood Pressure 155/92 H 160/86 H 156/89 H Pulse Oximetry 100 97 97 Oxygen Delivery 05/10/25 00:31 05/10/25 01:58 05/10/25 02:09 Temperature 99.7 F H Pulse Rate 100 95 96 Respiratory Rate 20 20 24 H Blood Pressure 162/89 H 149/84 H 149/84 H Pulse Oximetry 95 100 95 Oxygen Delivery 05/10/25 02:31 05/10/25 03:01 05/10/25 03:57 Temperature 98.3 F Pulse Rate 93 94 93 Respiratory Rate 19 17 18 Blood Pressure 138/85 152/87 H 154/84 H Pulse Oximetry 95 97 100 Oxygen Delivery 05/10/25 04:26 05/10/25 08:00 Temperature Pulse Rate Respiratory Rate Blood Pressure Pulse Oximetry 100 Oxygen Delivery Room Air Room Air <Martinez Salgado DO - Last Filed: 05/10/25 09:34> Exam Narrative: General: Awake, alert, NAD HEENT: NCAT, EOMI Neck: No masses or swelling, no JVD Heart: RR, HDS Lungs: Symmetric expansion, no IWOB, on RA Abdomen: Soft, TTP in RUQ, ND, nonperitoneal Extremities: Moves all, normal inspection Psych: Normal affect, normal mood, normal judgment <Martinez Salgado, DO - Last Filed: 05/10/25 09:34> Results Labs Result diagrams: 05/10/25 06:13 05/10/25 06:13 <Martinez Salgado, DO - Last Filed: 05/10/25 09:34> Labs: Abnormal lab results 05/09/25 05/09/25 05/10/25 Range/Units 22:48 23:13 02:13 WBC 16.2 H (4.5-10.0) K/mm3 RBC (4.6-6.20) M/mm3 Hgb (14.0-18.0) g/dL Hct (42.0-52.0) % Immature Gran % (Auto) 0.6 H (0-0.5) % Neut % (Auto) 84.3 H (45.5-73.1) % Lymph % (Auto) 6.2 L (18.3-44.2) % [place] % (Auto) (2.6-8.5) % Lymph # (Auto) (0.9-3.2) K/mm3 [place] # (Auto) 1.3 H (0.1-0.6) K/mm3 Abs Immat Gran (auto) 0.10 H (0.00-0.031) K/mm3 Absolute Neuts (auto) 13.6 H (1.3-6.7) K/mm3 PT 16.1 H (11.1-14.7) Seconds Sodium 127 L (137-145) mmol/L Potassium (3.4-5.0) mmol/L Chloride 91 L (98-107) mmol/L Glucose 166 H (65-110) mg/dL POC Capillary Glucose 180 H (65-105) mg/dl Hemoglobin A1c (<5.7) % Calcium (8.4-10.2) mg/dL Total Bilirubin 3.1 H (0.2-1.3) mg/dL C-Reactive Protein 12.8 H (<1.0) mg/dL Total Protein (6.3-8.2) g/dL Albumin (3.5-5.1) g/dL Lipase 19 L (23-300) U/L Urine Glucose (UA) 1+ H (Negative) mg/dL Urine Ketones 1+ H (Negative) mg/dL Ur Blood (Man) 2+ H (Negative) Urine RBC 6-10 H (0-2) /hpf 05/10/25 05/10/25 Range/Units 06:13 06:46 WBC 11.9 H (4.5-10.0) K/mm3 RBC 4.53 L (4.6-6.20) M/mm3 Hgb 13.5 L (14.0-18.0) g/dL Hct 38.7 L (42.0-52.0) % Immature Gran % (Auto) 0.8 H (0-0.5) % Neut % (Auto) 85.6 H (45.5-73.1) % Lymph % (Auto) 4.6 L (18.3-44.2) % [place] % (Auto) 8.6 H (2.6-8.5) % Lymph # (Auto) 0.55 L (0.9-3.2) K/mm3 [place] # (Auto) 1.0 H (0.1-0.6) K/mm3 Abs Immat Gran (auto) 0.09 H (0.00-0.031) K/mm3 Absolute Neuts (auto) 10.2 H (1.3-6.7) K/mm3 PT (11.1-14.7) Seconds Sodium 129 L (137-145) mmol/L Potassium 3.2 L (3.4-5.0) mmol/L Chloride (98-107) mmol/L Glucose 160 H (65-110) mg/dL POC Capillary Glucose 159 H (65-105) mg/dl Hemoglobin A1c 7.0 H (<5.7) % Calcium 7.9 L (8.4-10.2) mg/dL Total Bilirubin 2.4 H (0.2-1.3) mg/dL C-Reactive Protein (<1.0) mg/dL Total Protein 6.1 L (6.3-8.2) g/dL Albumin 3.3 L (3.5-5.1) g/dL Lipase (23-300) U/L Urine Glucose (UA) (Negative) mg/dL Urine Ketones (Negative) mg/dL Ur Blood (Man) (Negative) Urine RBC (0-2) /hpf Diabetes panel 05/09/25 05/10/25 Range/Units 22:48 06:13 Sodium 127 L 129 L (137-145) mmol/L Potassium 3.5 3.2 L (3.4-5.0) mmol/L Chloride 91 L 99 (98-107) mmol/L Carbon Dioxide 27 22 (22-30) mmol/L BUN 15 14 (9-20) mg/dL Creatinine 1.03 0.92 (0.7-1.3) mg/dL Glucose 166 H 160 H (65-110) mg/dL Hemoglobin A1c 7.0 H (<5.7) % Calcium 8.9 7.9 L (8.4-10.2) mg/dL AST 33 30 (17-59) U/L ALT 33 28 (6-50) U/L Alkaline Phosphatase 109 105 (38-126) U/L Total Protein 7.3 6.1 L (6.3-8.2) g/dL Albumin 3.9 3.3 L (3.5-5.1) g/dL Calcium panel 05/09/25 05/10/25 Range/Units 22:48 06:13 Calcium 8.9 7.9 L (8.4-10.2) mg/dL Albumin 3.9 3.3 L (3.5-5.1) g/dL Pituitary panel 05/09/25 05/10/25 Range/Units 22:48 06:13 Sodium 127 L 129 L (137-145) mmol/L Potassium 3.5 3.2 L (3.4-5.0) mmol/L Chloride 91 L 99 (98-107) mmol/L Carbon Dioxide 27 22 (22-30) mmol/L BUN 15 14 (9-20) mg/dL Creatinine 1.03 0.92 (0.7-1.3) mg/dL Glucose 166 H 160 H (65-110) mg/dL Calcium 8.9 7.9 L (8.4-10.2) mg/dL Adrenal panel 05/09/25 05/10/25 Range/Units 22:48 06:13 Sodium 127 L 129 L (137-145) mmol/L Potassium 3.5 3.2 L (3.4-5.0) mmol/L Chloride 91 L 99 (98-107) mmol/L Carbon Dioxide 27 22 (22-30) mmol/L BUN 15 14 (9-20) mg/dL Creatinine 1.03 0.92 (0.7-1.3) mg/dL Glucose 166 H 160 H (65-110) mg/dL Calcium 8.9 7.9 L (8.4-10.2) mg/dL Total Bilirubin 3.1 H 2.4 H (0.2-1.3) mg/dL AST 33 30 (17-59) U/L ALT 33 28 (6-50) U/L Alkaline Phosphatase 109 105 (38-126) U/L Total Protein 7.3 6.1 L (6.3-8.2) g/dL Albumin 3.9 3.3 L (3.5-5.1) g/dL All other labs normal. <Martinez Salgaod DO - Last Filed: 05/10/25 09:34> Imaging Abdomen CT scan report/results: report reviewed and image reviewed <Martinez Salgado DO - Last Filed: 05/10/25 09:34> Attestation Supervising Provider Attestation I, Nneka Jameson MD, have provided a substantive portion of the care of this patient. I performed the history, exam and/or medical decision making for this encounter. abd - S, mod dist, focal TTP c vol guard in RUQ, labs and imaging reviewed, suspicion of necrosis and gangrenous changes within gallbladder, discussed with patient in detail high risk of surgical intervention including open procedure, subtotal cholecystectomy, fenestrated cholecystectomy verses antibiotics and conservative management verses perc cholecystostomy tube, patient would like to think about it at this point, we will start clears and make NPO after midnight, serial exams and labs Nneka Jameson MD 05/10/25;15:36 <Nneka Jameson MD - Last Filed: 05/10/25 15:38>
[2025-05-10] MEDS: ONDANSETRON INJ 4 MG/2 ML VIAL IV PUSH (20:39)
[2025-05-11 04:35] VITALS: BP 151/78; PULSE 80; RESP 20; TEMP 36.3; O2SAT 99
[2025-05-11] MEDS: SODIUM CHLORIDE 0.9% IV 1,000 ML 125 ML IV CONT ×3 (05:14→22:04)
[2025-05-11] MEDS: PIPERACILLIN/TAZOBACTAM SOD 3.375 GM in SODIUM CHLORIDE 0.9% IV 50 ML 100 ML IVPB ×3 (05:16→16:59)
[2025-05-11 06:07] LABS: Hematocrit 36.1 % (42.0-52.0); Hemoglobin 12.4 g/dL (14.0-18.0); Immature Granulocyte Percent A 0.7 % (0-0.5); Lymphocytes Absolute Auto 0.52 K/mm3 (0.9-3.2); Mean Corpuscular HGB Conc 34.3 g/dl (32-36); Mean Corpuscular Hemoglobin 29.7 pg (26-34); Mean Corpuscular Volume 86.4 fl (80-100); Nucleated Red Blood Cells Absolute Auto 0.000 K/mm3 (0.0-0.012); Nucleated Red Blood Cells Perc 0.0 % (0.0-0.2); Platelet Count Result 150 k/mm3 (150-375); Red Blood Count 4.18 M/mm3 (4.6-6.20); White Blood Count 9.0 K/mm3 (4.5-10.0)
[2025-05-11 06:28] LABS: Alanine Aminotransferase 37 U/L (6-50); Albumin Level 3.0 g/dL (3.5-5.1); Alkaline Phosphatase 111 U/L (38-126); Anion Gap 6 mmol/L (4-12); Aspartate Amino Transferase 38 U/L (17-59); Bilirubin,Total 1.7 mg/dL (0.2-1.3); Blood Urea Nitrogen 10 mg/dL (9-20); Calcium 8.1 mg/dL (8.4-10.2); Carbon Dioxide 23 mmol/L (22-30); Chloride 101 mmol/L (98-107); Estimated CRCL calculation 98 ml/min; Estimated Glomerular Filt Rate > 60; Glucose 142 mg/dL (65-110); Potassium 3.0 mmol/L (3.4-5.0); Sodium 130 mmol/L (137-145); Total Protein 5.9 g/dL (6.3-8.2)
--- NOTE | 2025-05-11 07:43 | P.PNIM_ITS ---
Progress Note: A&P Assessment and Plan (1) Acute cholecystitis: Code(s): K81.0 - Acute cholecystitis Status: Acute Assessment and Plan: * Monitor vital signs, I and O's, check stool output, neuro status and patient is a fall risk * Monitor serum electrolytes and CBC * Monitor lactic acid * IV pain management * Gentle IV fluid resuscitation * Start Zosyn 3.375 mg every 6 hours * Consult general surgery for further evaluation, appreciate assistance and recommendation * Diet:NPO * MRCP: Prominent gallbladder wall thickening with suggestion of focal discontinuities in the mucosal surface suspicious for necrotizing cholecystitis. No evident cholelithiasis/choledocholithiasis or intra-/extra-axial hepatic biliary ductal dilation. Likely cirrhotic liver with splenomegaly suggesting secondary portal venous hypertension. * Percutaneous cholecystotomy tube versus cholecystectomy verses subtotal cholecystectomy (2) Sepsis: Qualifiers: Sepsis acute organ dysfunction status: without acute organ dysfunction Sepsis type: sepsis due to unspecified organism Qualified Code(s): A41.9 - Sepsis, unspecified organism Code(s): A41.9 - Sepsis, unspecified organism Status: Acute Assessment and Plan: * Meets SIRS criteria: tachycardia, fever, tachypnea and leukocytosis * lactic acid: 1.2 * 30 mL/kg = 2 L IV fluid bolus * suspected source: Cholecystitis * blood cultures drawn on 05/10 * UA: 6-10 RBC, 2+ blood, 1+ ketones * CXR: No acute cardiopulmonary findings * 05/11: Non tachycardic, afebrile, not tachypneic, leukocytosis has resolved (3) Diabetes mellitus with diabetic neuropathy, with long-term current use of insulin: Qualifiers: Diabetes mellitus type: type 2 Qualified Code(s): E11.40 - Type 2 diabetes mellitus with diabetic neuropathy, unspecified; Z79.4 - FDC (current) use of insulin Code(s): E11.40 - Type 2 diabetes mellitus with diabetic neuropathy, unspecified; Z79.4 - terminal 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 Status: Acute Assessment and Plan: * Hypoglycemia protocol * POC blood glucose ACHS * Home medication - none * Correct regimen ordered - moderate dose TIDWM and HS * A1C 7.0% (4) Hypertension: Qualifiers: Hypertension type: primary hypertension Qualified Code(s): I10 - Essential (primary) hypertension Code(s): I10 - Essential (primary) hypertension Status: Chronic Assessment and Plan: * Patient's blood pressure was reviewed on 05/10 * Blood pressure remains well controlled * Will continue current medications * 154/84 Subjective Date/time seen: 05/11/25 07:43 Interval history: 55-year-old male with a past medical history of obesity, type 2 diabetes mellitus on insulin therapy, essential hypertension, and prior appendectomy who presented to the ER with persistent fever. He reports that 5 days ago he had sudden unprovoked nausea vomiting that occurred while he was driving to work. 05/11/2025 Patient sitting comfortably in bed at time of examination. States that he feels better today, denies any chest pain, shortness of breath, nausea/vomiting or abdominal pain at this time. MRCP showed prominent gallbladder wall thickening suspicious for necrotizing cholecystitis, no evidence of cholelithiasis/choledocholithiasis or biliary duct dilation. Patient to remain NPO and on IV antibiotics at this time, general surgery to determine percutaneous cholecystotomy tube versus cholecystectomy versus subtotal cholecystectomy. Review of Systems Review of Systems: 12 systems were reviewed with pertinent positives and negatives per HPI. Except as documented in the HPI, all other systems were reviewed and are negative. Exam Narrative: Weight 96.2 kg BMI 30.4 Const: Other: Obese, mildly ill-appearing, appears stated age HENMT: Other: Mucous membranes are tacky, no oral pharyngeal erythema, no scleral icterus, no conjunctival pallor Eyes: Other: Pupils are equal and reactive, no scleral icterus, no conjunctival pallor Neck: Other: Large neck circumference, no lymphadenopathy Resp: Other: Clear to auscultation bilaterally, no increased work of breathing Cardio: Other: Regular rate, regular rhythm, 2+ bilateral radial pedal pulses, no murmur GI: Other: Distended, positive Tran sign, normoactive bowel sounds, no rebound Skin: Other: No jaundice, warm to touch Neuro: Other: Alert oriented, speech is clear, no facial asymmetry Extrem: Other: Patient's feet are not examined as he had is socks and shoes in place and nursing staff was trying to transport the patient up to his room, 5/5 lpc strength bilaterally, moves all extremities equally Psych: Other: Appropriate mood and affect, pleasant and cooperative, judgment and insight intact Objective Data Vital Signs Vital Signs: Vital Signs - 24 hr 05/10/25 08:00 05/10/25 14:00 05/10/25 19:47 Temperature 98.4 F 97.7 F Pulse Rate 96 93 Respiratory Rate 17 20 Blood Pressure 148/85 H 148/83 H Pulse Oximetry 100 99 98 Oxygen Delivery Room Air Fraction of Inspired Oxygen 05/10/25 20:40 05/10/25 21:01 05/10/25 23:40 Temperature 98.7 F Pulse Rate 90 79 Respiratory Rate 20 18 Blood Pressure 145/80 H Pulse Oximetry 97 97 Oxygen Delivery Room Air Room Air Fraction of Inspired Oxygen 21 05/11/25 04:35 Temperature 97.3 F L Pulse Rate 80 Respiratory Rate 20 Blood Pressure 151/78 H Pulse Oximetry 99 Oxygen Delivery Fraction of Inspired Oxygen Intake/Output Intake/Output: Intake & Output 05/08/25 05/09/25 05/10/25 05/11/25 23:59 23:59 23:59 23:59 Intake Total 4380 1300 Balance 4380 1300 Meds/Results Medications: Active Medications Generic Name Dose Route Start Last Admin Trade Name Freq PRN Reason Stop Dose Admin Dextrose 12.5 gm 05/10/25 01:59 Dextrose 50% 25 Gm/50 Ml Syringe IV PUSH PRN PRN Hypoglycemia Protocol Glucagon 1 mg 05/10/25 01:59 Glucagon For Inj 1 Mg Vial IM PRN PRN Hypoglycemia Protocol Glucose 15 gm 05/10/25 01:59 Glucose Oral Gel 15 Gm Of Glucse In 37.5 Gm Tube PO PRN PRN Hypoglycemia Protocol Hydralazine HCl 10 mg 05/10/25 05:08 Hydralazine Hcl 20 Mg/Ml Vial IV PUSH Q4H PRN SBP greater than 160 Piperacillin Sod/Tazobactam 50 mls @ 100 mls/hr 05/10/25 06:30 05/11/25 05:46 Sod 3.375 gm/ Sodium Chloride IVPB Infused Q6HR ABIMAEL Infusion Sodium Chloride 1,000 mls @ 125 mls/hr 05/10/25 02:00 05/11/25 05:14 Normal Saline Iv IV CONT 125 mls/hr .Q8H ABIMAEL Administration Dextrose 1,000 mls @ 100 mls/hr 05/10/25 01:59 Dextrose 5% 1,000 Ml IVPB PRN PRN Hypoglycemia Protocol Insulin Aspart 3 - 6 units 05/10/25 06:00 05/11/25 06:53 Insulin Aspart (*Bkc) 100 Units/Ml SUB-Q Not Given Q6HR ABIMAEL Protocol Ketorolac Tromethamine 15 mg 05/10/25 02:08 05/10/25 20:37 Ketorolac 15 Mg/Ml Vial (*Bkc) IV PUSH 15 mg Q6H PRN Administration Pain Rated 4-6 Morphine Sulfate 4 mg 05/10/25 01:58 Morphine Sulfate (*Crx) 4 Mg/Ml Inj IV PUSH Q2H PRN Pain Rated 7-10 Ondansetron HCl 4 mg 05/10/25 15:37 05/10/25 20:39 Ondansetron Inj 4 Mg/2 Ml Vial IV PUSH 4 mg BID PRN Administration Nausea And Vomiting Radiology Results: ITS Impressions Abdomen/Pelvis CT 05/10/25 06:33 IMPRESSION: 1. Acute cholecystitis suspicious for gangrenous cholecystitis. 2. Cirrhosis of the liver with portal venous hypertension. Chest X-Ray 05/10/25 06:33 IMPRESSION: 1. No acute cardiopulmonary findings. MRCP 05/10/25 12:36 IMPRESSION: 1. Prominent gallbladder wall thickening with suggestion of focal discontinuities in the mucosal surface suspicious for necrotizing cholecystitis. No evident cholelithiasis/choledocholithiasis or intra-/extra-axial hepatic biliary ductal dilation. 2. Likely cirrhotic liver with splenomegaly suggesting secondary portal venous hypertension. Labs Labs: Laboratory Results - last 24 hr 05/10/25 05/10/25 05/10/25 11:20 18:13 23:43 WBC RBC Hgb Hct MCV MCH MCHC RDW Plt Count MPV Immature Gran % (Auto) Neut % (Auto) Lymph % (Auto) [place] % (Auto) Eos % (Auto) Baso % (Auto) Lymph # (Auto) [place] # (Auto) Eos # (Auto) Baso # (Auto) Abs Immat Gran (auto) Absolute Neuts (auto) Absolute Nucleated RBC Nucleated RBC % Sodium Potassium Chloride Carbon Dioxide Anion Gap BUN Creatinine Estim Creat Clear Calc Estimated GFR Glucose POC Capillary Glucose 145 H 143 H 170 H Calcium Total Bilirubin AST ALT Alkaline Phosphatase Total Protein Albumin 05/11/25 05:33 WBC 9.0 RBC 4.18 L Hgb 12.4 L Hct 36.1 L MCV 86.4 MCH 29.7 MCHC 34.3 RDW 12.5 Plt Count 150 MPV 9.9 Immature Gran % (Auto) 0.7 H Neut % (Auto) 83.8 H Lymph % (Auto) 5.8 L [place] % (Auto) 8.4 Eos % (Auto) 1.0 Baso % (Auto) 0.3 Lymph # (Auto) 0.52 L [place] # (Auto) 0.8 H Eos # (Auto) 0.1 Baso # (Auto) 0.0 Abs Immat Gran (auto) 0.06 H Absolute Neuts (auto) 7.6 H Absolute Nucleated RBC 0.000 Nucleated RBC % 0.0 Sodium 130 L Potassium 3.0 L Chloride 101 Carbon Dioxide 23 Anion Gap 6 BUN 10 Creatinine 0.87 Estim Creat Clear Calc 98 Estimated GFR > 60 Glucose 142 H POC Capillary Glucose Calcium 8.1 L Total Bilirubin 1.7 H AST 38 ALT 37 Alkaline Phosphatase 111 Total Protein 5.9 L Albumin 3.0 L Quality VTE Prophylaxis VTE prophylaxis: pharmacologic ordered (Lovenox 40 mg subQ daily.)
[2025-05-11 08:00] VITALS: O2SAT 99
--- NOTE | 2025-05-11 08:16 | P.PNGS_ITS ---
Progress Note: A&P Assessment and Plan (1) Hyperbilirubinemia: Code(s): E80.6 - Other disorders of bilirubin metabolism <Martinez E. Salgado, DO - Last Filed: 05/11/25 08:21> Status: Acute <Martinez E. Salgado, DO - Last Filed: 05/11/25 08:21> (2) Acute cholecystitis: Code(s): K81.0 - Acute cholecystitis <Martinez E. Salgado, DO - Last Filed: 05/11/25 08:21> Status: Acute <Martinez E. Salgado, DO - Last Filed: 05/11/25 08:21> Assessment and Plan: Patient presented with signs of acute cholecystitis, possible gangrenous cholecystitis. He did have an elevated bilirubin that continues to trend down. He is clinically stable, he is tender in the RUQ, but this has significantly improved with abx. The patient will ultimately need some intervention which has been discussed with him. MRCP showed no evidence of choledocolithiasis. Patient to remain NPO and on abx. Continued discussions this morning with Dr. Jameson regarding percutaneous cholecystostomy tube vs cholecystectomy vs subtotal cholecystectomy. Will discuss with Dr. Jameson. See attestation for further plan and updates. <Martinez Nikos. 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 Salgado, DO - Last Filed: 05/11/25 08:21> Code(s): E11.40 - Type 2 diabetes mellitus with diabetic neuropathy, u nspecified; Z79.4 - longterm (current) use of insulin <Martinez E. Salgado, DO - Last Filed: 05/11/25 08:21> Status: Acute <Martinez E. Salgado, DO - Last Filed: 05/11/25 08:21> (4) Obesity (BMI 30.0-34.9): Code(s): E66.9 - Obesity, unspecified <Martinez E. Salgado, DO - Last Filed: 05/11/25 08:21> Status: Chronic <Martinez Salgado DO - Last Filed: 05/11/25 08:21> (5) Hypertension: Qualifiers: Hypertension type: primary hypertension Qualified Code(s): I10 - Essential (primary) hypertension <Martinez Salgado DO - Last Filed: 05/11/25 08:21> Code(s): I10 - Essential (primary) hypertension <Martinez Salgado DO - Last Filed: 05/11/25 08:21> Status: Chronic <Martinez Salgado DO - Last Filed: 05/11/25 08:21> Subjective Subjective Date/Time Seen: 05/11/25 08:16 <Martinez Salgado DO - Last Filed: 05/11/25 08:21> Interval history: NAEON. Patient states pain is improving. WBC WNL, T bili continues to trend down, LFTs remain normal otherwise. Tolerated some clears yesterday, has remained NPO since midnight. States he would be okay proceeding with any intervention that would be recommended. <Martinez Salgado DO - Last Filed: 05/11/25 08:21> Review of Systems Review of Systems: All systems reviewed & are unremarkable except as noted in HPI and below <Martinez Salgado DO - Last Filed: 05/11/25 08:21> Exam Narrative: General: Awake, alert, NAD HEENT: NCAT, EOMI Neck: No masses or swelling, no JVD Heart: RR, HDS Lungs: Symmetric expansion, no IWOB, on RA Abdomen: Soft, TTP in RUQ, but much improved, ND, nonperitoneal Extremities: Moves all, normal inspection Psych: Normal affect, normal mood, normal judgment <Martinez Salgado DO - Last Filed: 05/11/25 08:21> Objective Data Vital Signs Vital Signs: Vital Signs - 24 hr 05/10/25 14:00 05/10/25 19:47 05/10/25 20:40 Temperature 98.4 F 97.7 F Pulse Rate 96 93 Respiratory Rate 17 20 Blood Pressure 148/85 H 148/83 H Pulse Oximetry 99 98 Oxygen Delivery Room Air Fraction of Inspired Oxygen 05/10/25 21:01 05/10/25 23:40 05/11/25 04:35 Temperature 98.7 F 97.3 F L Pulse Rate 90 79 80 Respiratory Rate 20 18 20 Blood Pressure 145/80 H 151/78 H Pulse Oximetry 97 97 99 Oxygen Delivery Room Air Fraction of Inspired Oxygen 21 <Martinez Salgado, DO - Last Filed: 05/11/25 08:21> Intake/Output Intake/Output: Intake & Output 05/08/25 05/09/25 05/10/25 05/11/25 23:59 23:59 23:59 23:59 Intake Total 4380 1300 Balance 4380 1300 <Martinez Salgado, DO - Last Filed: 05/11/25 08:21> Meds/Results Medications: Active Medications Generic Name Dose Route Start Last Admin Trade Name Freq PRN Reason Stop Dose Admin Dextrose 12.5 gm 05/10/25 01:59 Dextrose 50% 25 Gm/50 Ml Syringe IV PUSH PRN PRN Hypoglycemia Protocol Glucagon 1 mg 05/10/25 01:59 Glucagon For Inj 1 Mg Vial IM PRN PRN Hypoglycemia Protocol Glucose 15 gm 05/10/25 01:59 Glucose Oral Gel 15 Gm Of Glucse In 37.5 Gm Tube PO PRN PRN Hypoglycemia Protocol Hydralazine HCl 10 mg 05/10/25 05:08 Hydralazine Hcl 20 Mg/Ml Vial IV PUSH Q4H PRN SBP greater than 160 Piperacillin Sod/Tazobactam 50 mls @ 100 mls/hr 05/10/25 06:30 05/11/25 05:46 Sod 3.375 gm/ Sodium Chloride IVPB Infused Q6HR ABIMAEL Infusion Sodium Chloride 1,000 mls @ 125 mls/hr 05/10/25 02:00 05/11/25 05:14 Normal Saline Iv IV CONT 125 mls/hr .Q8H ABIMAEL Administration Dextrose 1,000 mls @ 100 mls/hr 05/10/25 01:59 Dextrose 5% 1,000 Ml IVPB PRN PRN Hypoglycemia Protocol Insulin Aspart 3 - 6 units 05/10/25 06:00 05/11/25 06:53 Insulin Aspart (*Bkc) 100 Units/Ml SUB-Q Not Given Q6HR ABIMAEL Protocol Ketorolac Tromethamine 15 mg 05/10/25 02:08 05/10/25 20:37 Ketorolac 15 Mg/Ml Vial (*Bkc) IV PUSH 15 mg Q6H PRN Administration Pain Rated 4-6 Morphine Sulfate 4 mg 05/10/25 01:58 Morphine Sulfate (*Crx) 4 Mg/Ml Inj IV PUSH Q2H PRN Pain Rated 7-10 Ondansetron HCl 4 mg 05/10/25 15:37 05/10/25 20:39 Ondansetron Inj 4 Mg/2 Ml Vial IV PUSH 4 mg BID PRN Administration Nausea And Vomiting <Martinez Salgado, DO - Last Filed: 05/11/25 08:21> Radiology Results: ITS Impressions Abdomen/Pelvis CT 05/10/25 06:33 IMPRESSION: 1. Acute cholecystitis suspicious for gangrenous cholecystitis. 2. Cirrhosis of the liver with portal venous hypertension. Chest X-Ray 05/10/25 06:33 IMPRESSION: 1. No acute cardiopulmonary findings. MRCP 05/10/25 12:36 IMPRESSION: 1. Prominent gallbladder wall thickening with suggestion of focal discontinuities in the mucosal surface suspicious for necrotizing cholecystitis. No evident cholelithiasis/choledocholithiasis or intra-/extra-axial hepatic biliary ductal dilation. 2. Likely cirrhotic liver with splenomegaly suggesting secondary portal venous hypertension. <Martinez Salgado, DO - Last Filed: 05/11/25 08:21> Labs Labs: Laboratory Results - last 24 hr 05/10/25 05/10/25 05/10/25 11:20 18:13 23:43 WBC RBC Hgb Hct MCV MCH MCHC RDW Plt Count MPV Immature Gran % (Auto) Neut % (Auto) Lymph % (Auto) Edmunds % (Auto) Eos % (Auto) Baso % (Auto) Lymph # (Auto) Edmunds # (Auto) Eos # (Auto) Baso # (Auto) Abs Immat Gran (auto) Absolute Neuts (auto) Absolute Nucleated RBC Nucleated RBC % Sodium Potassium Chloride Carbon Dioxide Anion Gap BUN Creatinine Estim Creat Clear Calc Estimated GFR Glucose POC Capillary Glucose 145 H 143 H 170 H Calcium Total Bilirubin AST ALT Alkaline Phosphatase Total Protein Albumin 05/11/25 05:33 WBC 9.0 RBC 4.18 L Hgb 12.4 L Hct 36.1 L MCV 86.4 MCH 29.7 MCHC 34.3 RDW 12.5 Plt Count 150 MPV 9.9 Immature Gran % (Auto) 0.7 H Neut % (Auto) 83.8 H Lymph % (Auto) 5.8 L Edmunds % (Auto) 8.4 Eos % (Auto) 1.0 Baso % (Auto) 0.3 Lymph # (Auto) 0.52 L Edmunds # (Auto) 0.8 H Eos # (Auto) 0.1 Baso # (Auto) 0.0 Abs Immat Gran (auto) 0.06 H Absolute Neuts (auto) 7.6 H Absolute Nucleated RBC 0.000 Nucleated RBC % 0.0 Sodium 130 L Potassium 3.0 L Chloride 101 Carbon Dioxide 23 Anion Gap 6 BUN 10 Creatinine 0.87 Estim Creat Clear Calc 98 Estimated GFR > 60 Glucose 142 H POC Capillary Glucose Calcium 8.1 L Total Bilirubin 1.7 H AST 38 ALT 37 Alkaline Phosphatase 111 Total Protein 5.9 L Albumin 3.0 L <Martinez Salgado, DO - Last Filed: 05/11/25 08:21> Attestation Supervising Provider Attestation I, Nneka Jameson MD, have provided a substantive portion of the care of this patient. I performed the history, exam and/or medical decision making for this encounter. abd - S, sl dist, decreased RUQ TTP, labs reviewed, much improved exam, advance to low fat diet, cont IV abx Nneka Jameson MD 05/11/25;14:30 <Nneka Jameson MD - Last Filed: 05/11/25 14:31>
[2025-05-11] MEDS: KETOROLAC 15 MG/ML VIAL (*BKC) IV PUSH (11:12)
[2025-05-11] MEDS: POTASSIUM CHLORIDE 20 MEQ ER TABLET 40 MEQ PO (12:22)
[2025-05-11 14:00] VITALS: BP 147/78; PULSE 86; RESP 17; TEMP 37.1; O2SAT 99
[2025-05-11] MEDS: INSULIN ASPART (*BKC) 100 UNITS/ML SUB-Q (17:00)
[2025-05-11 20:00] VITALS: BP 152/84; PULSE 80; RESP 18; TEMP 37.2; O2SAT 98
[2025-05-12] MEDS: PIPERACILLIN/TAZOBACTAM SOD 3.375 GM in SODIUM CHLORIDE 0.9% IV 50 ML 100 ML IVPB ×3 (00:32→12:52)
[2025-05-12 04:00] VITALS: BP 146/83; PULSE 79; RESP 18; TEMP 36.4; O2SAT 98
[2025-05-12] MEDS: KETOROLAC 15 MG/ML VIAL (*BKC) IV PUSH (04:48)
[2025-05-12] MEDS: SODIUM CHLORIDE 0.9% IV 1,000 ML 125 ML IV CONT (06:30)
--- NOTE | 2025-05-12 07:06 | PM.PNGS ---
Progress Note: A&P Assessment and Plan (1) Hyperbilirubinemia: Code(s): E80.6 - Other disorders of bilirubin metabolism <Martinez Nikos. Salgado, DO - Last Filed: 05/12/25 07:50> Status: Acute <Martinez E. Salgado, DO - Last Filed: 05/12/25 07:50> (2) Acute cholecystitis: Code(s): K81.0 - Acute cholecystitis <Martinez E. Salgado, DO - Last Filed: 05/12/25 07:50> Status: Acute <Martinez E. Salgado, DO - Last Filed: 05/12/25 07:50> Assessment and Plan: Patient presented with signs of acute cholecystitis, possible gangrenous cholecystitis. He did have an elevated bilirubin that continues to trend down. He is clinically stable, he is tender in the RUQ, but this has significantly improved with abx. The patient will ultimately need some intervention which has been discussed with him. MRCP showed no evidence of choledocolithiasis. Patient tolerating low fat diet, will continue diet and abx. Continued discussions this morning with Dr. Jameson regarding surgical intervention. Will plan to treat medically with low fat diet and antibiotics with interval cholecystectomy. Clinically stable to discharge home. Will discharge on Augmentin for 7 days and have him follow up in clinic with Dr. Jameson in 1-2 weeks to discuss timing of interval cholecystectomy. Patient instructed to return to the hospital soon should symptoms return. Please see attestation for further plan and updates. <Martinez Salgado, DO - Last Filed: 05/12/25 07:50> (3) Diabetes mellitus with diabetic neuropathy, with long-term current use of insulin: Qualifiers: Diabetes mellitus type: type 2 Qualified Code(s): E11.40 - Type 2 diabetes mellitus with diabetic neuropathy, unspecified; Z79.4 - [facility] (current) use of insulin <Martinez E. Salgado, DO - Last Filed: 05/12/25 07:50> Code(s): E11.40 - Type 2 diabetes mellitus with diabetic neuropathy, unspecified; Z79.4 - [facility] (current) use of insulin <Martinez E. Salgado, DO - Last Filed: 05/12/25 07:50> Status: Acute <Martinez E. Salgado, DO - Last Filed: 05/12/25 07:50> (4) Obesity (BMI 30.0-34.9): Code(s): E66.9 - Obesity, unspecified <Martinez Salgado DO - Last Filed: 05/12/25 07:50> Status: Chronic <Martinez Salgado DO - Last Filed: 05/12/25 07:50> (5) Hypertension: Qualifiers: Hypertension type: primary hypertension Qualified Code(s): I10 - Essential (primary) hypertension <Martinez Salgado DO - Last Filed: 05/12/25 07:50> Code(s): I10 - Essential (primary) hypertension <Martinez Salgado, DO - Last Filed: 05/12/25 07:50> Status: Chronic <Martinez Salgado, DO - Last Filed: 05/12/25 07:50> Subjective Subjective Date/Time Seen: 05/12/25 07:06 <Martinez Salgado DO - Last Filed: 05/12/25 07:50> Interval history: NAEON. No tenderness on exam this am. States he feels well, tolerated low fat diet yesterday. Afebrile, VSS. Labs pending this am. <Martinez Salgado DO - Last Filed: 05/12/25 07:50> Review of Systems Review of Systems: All systems reviewed & are unremarkable except as noted in HPI and below <Martinez Salgado DO - Last Filed: 05/12/25 07:50> Exam Narrative: General: Awake, alert, NAD HEENT: NCAT, EOMI Neck: No masses or swelling, no JVD Heart: RR, HDS Lungs: Symmetric expansion, no IWOB, on RA Abdomen: Soft, NTTP, ND, nonperitoneal Extremities: Moves all, normal inspection Psych: Normal affect, normal mood, normal judgment <Martinez Salgado DO - Last Filed: 05/12/25 07:50> Objective Data Vital Signs Vital Signs: Vital Signs - 24 hr 05/11/25 08:00 05/11/25 14:00 05/11/25 20:00 Temperature 98.7 F 98.9 F Pulse Rate 86 80 Respiratory Rate 17 18 Blood Pressure 147/78 H 152/84 H Pulse Oximetry 99 99 98 Oxygen Delivery Room Air 11/11/25 22:08 05/12/25 04:00 Temperature 97.6 F Pulse Rate 79 Respiratory Rate 18 Blood Pressure 146/83 H Pulse Oximetry 98 Oxygen Delivery Room Air <Martinez Salgado, DO - Last Filed: 05/12/25 07:50> Intake/Output Intake/Output: Intake & Output 05/09/25 05/10/25 05/11/25 05/12/25 23:59 23:59 23:59 23:59 Intake Total 4380 3751.7 1500 Balance 4380 3751.7 1500 <Martinez Salgado, DO - Last Filed: 05/12/25 07:50> Meds/Results Medications: Active Medications Generic Name Dose Route Start Last Admin Trade Name Freq PRN Reason Stop Dose Admin Dextrose 12.5 gm 05/10/25 01:59 Dextrose 50% 25 Gm/50 Ml Syringe IV PUSH PRN PRN Hypoglycemia Protocol Glucagon 1 mg 05/10/25 01:59 Glucagon For Inj 1 Mg Vial IM PRN PRN Hypoglycemia Protocol Glucose 15 gm 05/10/25 01:59 Glucose Oral Gel 15 Gm Of Glucse In 37.5 Gm Tube PO PRN PRN Hypoglycemia Protocol Hydralazine HCl 10 mg 05/10/25 05:08 Hydralazine Hcl 20 Mg/Ml Vial IV PUSH Q4H PRN SBP greater than 160 Piperacillin Sod/Tazobactam 50 mls @ 100 mls/hr 05/10/25 06:30 05/12/25 06:14 Sod 3.375 gm/ Sodium Chloride IVPB Infused Q6HR ABIMAEL Infusion Sodium Chloride 1,000 mls @ 125 mls/hr 05/10/25 02:00 05/12/25 06:30 Normal Saline Iv IV CONT 125 mls/hr .Q8H ABIMAEL Administration Dextrose 1,000 mls @ 100 mls/hr 05/10/25 01:59 Dextrose 5% 1,000 Ml IVPB PRN PRN Hypoglycemia Protocol Insulin Aspart 3 - 6 units 05/11/25 17:00 05/11/25 17:00 Insulin Aspart (*Bkc) 100 Units/Ml SUB-Q 3 units TIDWM ABIMAEL Administration Protocol Ketorolac Tromethamine 15 mg 05/10/25 02:08 05/12/25 04:48 Ketorolac 15 Mg/Ml Vial (*Bkc) IV PUSH 15 mg Q6H PRN Administration Pain Rated 4-6 Morphine Sulfate 4 mg 05/10/25 01:58 Morphine Sulfate (*Crx) 4 Mg/Ml Inj IV PUSH Q2H PRN Pain Rated 7-10 Ondansetron HCl 4 mg 05/10/25 15:37 05/10/25 20:39 Ondansetron Inj 4 Mg/2 Ml Vial IV PUSH 4 mg BID PRN Administration Nausea And Vomiting <Martinez Salgado DO - Last Filed: 05/12/25 07:50> Radiology Results: ITS Impressions Abdomen/Pelvis CT 05/10/25 06:33 IMPRESSION: 1. Acute cholecystitis suspicious for gangrenous cholecystitis. 2. Cirrhosis of the liver with portal venous hypertension. Chest X-Ray 05/10/25 06:33 IMPRESSION: 1. No acute cardiopulmonary findings. MRCP 05/10/25 12:36 IMPRESSION: 1. Prominent gallbladder wall thickening with suggestion of focal discontinuities in the mucosal surface suspicious for necrotizing cholecystitis. No evident cholelithiasis/choledocholithiasis or intra-/extra-axial hepatic biliary ductal dilation. 2. Likely cirrhotic liver with splenomegaly suggesting secondary portal venous hypertension. <Martinez Salgado DO - Last Filed: 05/12/25 07:50> Labs Labs: Laboratory Results - last 24 hr 05/11/25 05/11/25 05/11/25 11:43 16:14 20:00 POC Capillary Glucose 148 H 222 H 177 H <Martinez Salgado DO - Last Filed: 05/12/25 07:50> Attestation Supervising Provider Attestation I, Nneka Jameson MD, have provided a substantive portion of the care of this patient. I performed the history, exam and/or medical decision making for this encounter. Nneka Jameson MD 05/12/25;10:55 <Nneka Jameson MD - Last Filed: 05/12/25 10:55>
[2025-05-12 07:32] LABS: Hematocrit 33.7 % (42.0-52.0); Hemoglobin 11.6 g/dL (14.0-18.0); Mean Corpuscular HGB Conc 34.4 g/dl (32-36); Mean Corpuscular Hemoglobin 29.7 pg (26-34); Mean Corpuscular Volume 86.2 fl (80-100); Platelet Count Result 152 k/mm3 (150-375); Red Blood Count 3.91 M/mm3 (4.6-6.20); White Blood Count 8.2 K/mm3 (4.5-10.0)
--- NOTE | 2025-05-12 08:16 | P.DS_ITS ---
DS: Admitting Diagnosis Discharge Date 05/12/25 Admitting Diagnosis - acute cholecystitis - sepsis DS: Discharge Diagnosis Discharge Diagnosis (1) Acute cholecystitis: Code(s): K81.0 - Acute cholecystitis Status: Acute (2) Sepsis: Qualifiers: Sepsis type: sepsis due to unspecified organism Sepsis acute organ dysfunction status: without acute organ dysfunction Qualified Code(s): A41.9 - Sepsis, unspecified organism Code(s): A41.9 - Sepsis, unspecified organism Status: Acute (3) Diabetes mellitus with diabetic neuropathy, with long-term current use of insulin: Qualifiers: Diabetes mellitus type: type 2 Qualified Code(s): E11.40 - Type 2 diabetes mellitus with diabetic neuropathy, unspecified; 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 Code(s): E11.40 - Type 2 diabetes mellitus with diabetic neuropathy, unspecified; Z79.4 - half-way (current) use of insulin Status: Acute (4) Hypertension: Qualifiers: Hypertension type: primary hypertension Qualified Code(s): I10 - Essential (primary) hypertension Code(s): I10 - Essential (primary) hypertension Status: Chronic DS: Summary Hospital Course Reason for hospitalization: - acute cholecystitis - sepsis Hospital Course: Patient is a 55-year-old male with a history of obesity, type 2 diabetes mellitus (on insulin and metformin), essential hypertension, and prior appendectomy, who presented with persistent fever, nausea, vomiting, and right upper quadrant abdominal pain. Initial evaluation revealed leukocytosis, mild hyperbilirubinemia, and imaging findings consistent with acute cholecystitis, suspicious for gangrenous or necrotizing cholecystitis. There was also evidence of underlying cirrhosis with portal hypertension on imaging. Upon admission, the patient met SIRS criteria (fever, tachycardia, tachypnea, leukocytosis) and was diagnosed with sepsis secondary to acute cholecystitis. He was started on empiric broad-spectrum antibiotics (piperacillin-tazobactam), made NPO, and received IV fluid resuscitation (2L bolus, then maintenance fluids). Blood cultures were obtained and remained negative at 24 hours. Pain and nausea were managed with IV ketorolac, morphine, and ondansetron as needed. General surgery was consulted early in the hospital course. MRCP confirmed acute cholecystitis with features concerning for necrotizing cholecystitis, but without evidence of choledocholithiasis or biliary ductal dilation. The liver appeared cirrhotic with splenomegaly, suggesting portal hypertension. Given the absence of peritonitis, clinical improvement on antibiotics, and underlying cirrhosis, the decision was made to manage the patient medically with IV antibiotics and supportive care, with plans for interval cholecystectomy after resolution of the acute episode. The patient?s diabetes was managed with moderate-dose sliding scale insulin and blood glucose monitoring every 6 hours while NPO. His home regimen was reviewed, and an A1c of 7.0% was noted. Hypoglycemia protocol was in place, and he remai shavon euglycemic throughout admission. Patient's home insulin regimen was resumed on discharge. Hypertension was monitored; blood pressures were modestly elevated but stable, and PRN IV antihypertensives were available for systolic BP >160 mmHg. Home antihypertensive medications were resumed. Over the course of hospitalization, the patient?s abdominal pain and tenderness improved significantly. He remained afebrile, hemodynamically stable, and tolerated advancement to a low-fat diet without recurrence of symptoms. Leukocytosis resolved, and bilirubin trended down. No evidence of acute organ d ysfunction developed. Intake and output were appropriate, and there were no complications related to his comorbidities. The patient was deemed clinically stable for discharge. He was transitioned to oral Augmentin for a 7-day course and instructed to follow a low-fat diet. Patient will follow-up with general surgery in 1?2 weeks to discuss timing of interval cholecystectomy. He was advised to return to the hospital for any recurrence of fever, abdominal pain, or other concerning symptoms. Patient's potassium was 3.2 on day of discharge. He received KCl 40 meq and was discharged with continued supplementation x 5 days with instructions to repeat a CMP in 5 days. In regards to possible cirrhosis seen on imaging, patient was instructed to follow-up with GI for further testing. Patient was also encouraged to establish with a PCP. Patient discharged home in stable condition. Time Spent with Patient Time attestation: Total time spent providing and/or coordinating discharge services: Time spent: Greater than 30 minutes Exam Narrative: General: NAD, well-appearing Eyes: EOMI ENT: neck supple Cardiovascular: Regular rate and rhythm Respiratory: Clear to auscultation, respirations even and unlabored on RA Gastrointestinal: Soft, non tender Genitourinary: no suprapubic tenderness Musculoskeletal: No edema Skin: warm, dry Neuro: Alert. Psych: Mood appropriate DS: Data Data Completed and Pending Completed studies during hospitalization: ITS Impressions Abdomen/Pelvis CT 05/10/25 06:33 IMPRESSION: 1. Acute cholecystitis suspicious for gangrenous cholecystitis. 2. Cirrhosis of the liver with portal venous hypertension. Chest X-Ray 05/10/25 06:33 IMPRESSION: 1. No acute cardiopulmonary findings. MRCP 05/10/25 12:36 IMPRESSION: 1. Prominent gallbladder wall thickening with suggestion of focal discontinuities in the mucosal surface suspicious for necrotizing cholecystitis. No evident cholelithiasis/choledocholithiasis or intra-/extra-axial hepatic biliary ductal dilation. 2. Likely cirrhotic liver with splenomegaly suggesting secondary portal venous hypertension. Labs on day of discharge: Labs from last 24 hours 05/12/25 05/12/25 05/11/25 07:29 06:51 20:00 WBC 8.2 RBC 3.91 L Hgb 11.6 L Hct 33.7 L MCV 86.2 MCH 29.7 MCHC 34.4 RDW 12.5 Plt Count 152 MPV 10.0 Sodium Pending Potassium Pending Chloride Pending Carbon Dioxide Pending Anion Gap Pending BUN Pending Creatinine Pending Estim Creat Clear Calc Pending Estimated GFR Pending Glucose Pending POC Capillary Glucose 157 H 177 H Calcium Pending Total Bilirubin Pending AST Pending ALT Pending Alkaline Phosphatase Pending Total Protein Pending Albumin Pending 05/11/25 05/11/25 16:14 11:43 WBC RBC Hgb Hct MCV MCH MCHC RDW Plt Count MPV Sodium Potassium Chloride Carbon Dioxide Anion Gap BUN Creatinine Estim Creat Clear Calc Estimated GFR Glucose POC Capillary Glucose 222 H 148 H Calcium Total Bilirubin AST ALT Alkaline Phosphatase Total Protein Albumin Discharge Plan Discharge Attending physician on discharge: Ariel Mccormick Consulting providers: Nneka Jameson; Dimas Carrera; Sandee Gilliam Discharging Clinician: Sandee Gilliam Anticipated Discharge Date/Time: 05/12/25 12:31 Patient Disposition: Home Activity: as tolerated Diet: low fat Discharge Instructions: Discharge Instructions: Acute Cholecystitis (Possible Gangrenous Cholecystitis) Diagnosis: You were admitted with acute cholecystitis (inflammation of the gallbladder), with possible gangrenous changes. Imaging did not show stones in your bile ducts. Your bilirubin (a liver test) was elevated but is now improving. Your symptoms have improved with antibiotics. You also had testing in the hospital that showed you likely have underlying sleep apnea. You should arrange to have an outpatient sleep study with your primary care provider. Treatment Plan: * Antibiotics:?Continue Augmentin (amoxicillin-clavulanate) as prescribed for a total of 7 days. Take the medication exactly as directed. Finish the entire course, even if you feel better. * Diet:?Continue a low-fat diet. Avoid fried, greasy, or fatty foods, as these can worsen your symptoms. * Activity:?Resume normal activities as tolerated. Rest as needed. * Pain Management:?Use acetaminophen (Tylenol) as needed for pain up to 2 grams daily, unless otherwise instructed. Avoid NSAIDs (like ibuprofen) due to bleeding risk. Follow-Up: * Clinic Appointment:?Schedule a follow-up visit with Dr. Jameson in 1?2 weeks. At this visit, you will discuss the timing of your interval cholecystectomy (planned gallbladder removal surgery). * Surgical Planning:?You will need your gallbladder removed once your infection has resolved. This will be discussed further at your follow-up. * Establish with a GI for further work-up of possible cirrhosis * Have repeat lab work checked in 5-7 days for low sodium and potassium. These lab results will be sent to the internal medicine physician ribbon cutter. Schedule a hospital follow-up appointment with the internal medicine physician ribbon cutter until you can establish with a primary care provider. When to Seek Immediate Medical Attention: Return to the Emergency Department or call 911 if you experience any of the following: * Severe or worsening abdominal pain * Persistent vomiting or inability to keep down fluids * Fever or chills * Yellowing of your skin or eyes (jaundice) * Confusion, weakness, or fainting * Additional Instructions: * Take all medications as prescribed. * Keep your follow-up appointment. * If you have any questions or concerns before your appointment, contact the clinic. Patient Instructions: Antibiotic Form Patient Language: Beninese Stand Alone Forms: General Discharge Information Follow-up/Referrals: Nneka Jameson MD [Physician, General Surgery] - 2 Weeks Pablo Lee MD [Physician, Family Practice] - Call for Appointment Referral Note: hospital follow-up in 1 week Marcello Hansen MD [Physician, Gastroenterology] - Call for Appointment Referral Note: possible cirrhosis work-up Discharge Medications: New potassium chloride 10 mEq capsule, extended release 20 meq PO DAILY Qty: 5 0RF amoxicillin-pot clavulanate 875-125 mg tablet 1 tablet PO Q12H Qty: 14 0RF Continued (DME) blood-glucose meter [BluLink Glucose Monitor System] Misc See Rx Instructions .Route Qty: 1 0RF Rx Instructions: Check blood sugar three times daily (DME) BluLink Glucose Test Strip Strip See Rx Instructions .Route Qty: 100 1RF Rx Instructions: Check blood glucose three times daily (DME) lancets 30 gauge misc See Rx Instructions .Route Qty: 100 1RF Rx Instructions: Check blood sugar three times daily (DME) pen needle, diabetic [CareTouch Pen Needle] 31 gauge x 5/16 needle See Rx Instructions .Route Qty: 100 1RF Rx Instructions: Check blood sugar 3 times daily insulin glargine [Basaglar KwikPen U-100 Insulin] 100 unit/mL (3 mL) insulin pen 10 unit subcut HS metformin 750 mg tablet extended release 24 hr 750 mg PO BID Qty: 180 3RF lisinopril-hydrochlorothiazide 20-12.5 mg tablet 1 tablet PO DAILY Qty: 90 2RF atorvastatin 40 mg tablet 40 mg PO QHS Qty: 90 1RF Rx Instructions: NEEDS TO SCHEDULE APPOINTMENT Other Ambulatory Orders: Complete Blood Count with Diff (Routine) Timeframe: 5 Days Location: Determined by Patient Ordered By: Sandee Gilliam Comprehensive Metabolic Panel (Routine) Timeframe: 5 Days Location: Determined by Patient Ordered By: Sandee Gilliam Date of admission: 05/10/25 01:58 Primary Care Provider: PHYSICIAN,GENERAL OFFICE CLERK Admitting Provider: Isamar March Attending physician on admission: Isamar Marhc Condition: Stable
[2025-05-12 08:51] LABS: Alanine Aminotransferase 51 U/L (6-50); Albumin Level 2.8 g/dL (3.5-5.1); Alkaline Phosphatase 111 U/L (38-126); Anion Gap 5 mmol/L (4-12); Aspartate Amino Transferase 52 U/L (17-59); Bilirubin,Total 1.3 mg/dL (0.2-1.3); Blood Urea Nitrogen 9 mg/dL (9-20); Calcium 7.8 mg/dL (8.4-10.2); Carbon Dioxide 24 mmol/L (22-30); Chloride 102 mmol/L (98-107); Estimated CRCL calculation 98 ml/min; Estimated Glomerular Filt Rate > 60; Glucose 144 mg/dL (65-110); Potassium 3.2 mmol/L (3.4-5.0); Sodium 131 mmol/L (137-145); Total Protein 5.6 g/dL (6.3-8.2)
[2025-05-12] MEDS: POTASSIUM CHLORIDE 20 MEQ ER TABLET 40 MEQ PO (11:02)
--- NOTE | 2025-05-13 08:22 | PC.NURSE ---
Spoke with Sandee Gilliam about work release okay to return to work on Saturday05/17/25.
== END 2025-05-12 14:35 | disposition home or self-care (01) ==
LOC: ANHED 05-10 02:01 → ANH3MEDSUR 05-10 06:24
PROVIDERS: Admitting Provider Internal Medicine; Emergency Provider Physician Assistant; Visit Provider Family Medicine
DX: K81.0 Acute cholecystitis (principal); A41.9 Sepsis, unspecified organism; E80.6 Other disorders of bilirubin metabolism; I10 Essential (primary) hypertension; E11.40 Type 2 diabetes mellitus with diabetic neuropathy, unspecified; E11.319 Type 2 diabetes mellitus with unspecified diabetic retinopathy without macular edema; E66.9 Obesity, unspecified; Z68.30 Body mass index [BMI] 30.0-30.9, adult; Z20.822 Contact with and (suspected) exposure to COVID-19; Z79.4 Long term (current) use of insulin; Z79.84 Long term (current) use of oral hypoglycemic drugs; Z90.49 Acquired absence of other specified parts of digestive tract; Z83.3 Family history of diabetes mellitus; Z80.1 Family history of malignant neoplasm of trachea, bronchus and lung; Z80.0 Family history of malignant neoplasm of digestive organs; Z82.49 Family history of ischemic heart disease and other diseases of the circulatory system; Z82.3 Family history of stroke; Z84.19 Family history of other disorders of kidney and ureter
CPT/HCPCS: 36415; 71046; 74177; 74183; 76376; 80053; 81001; 82948; 83036; 83605; 83690; 85025; 85027; 85610; 85730; 86140; 87040; 87637; 94762; 96361; 96365; 96375; 99285; A9270; A9577; G0378; G0379; J1815; J1885; J2405; J2543; J7030; Q9967

== ENCOUNTER 2025-05-18 17:38 | Outpatient (CLI) | payer SELFPAY ==
[2025-05-18 18:03] LABS: Hematocrit 45.6 % (42.0-52.0); Hemoglobin 15.5 g/dL (14.0-18.0); Immature Granulocyte Percent A 1.6 % (0-0.5); Lymphocytes Absolute Auto 1.38 K/mm3 (0.9-3.2); Mean Corpuscular HGB Conc 34.0 g/dl (32-36); Mean Corpuscular Hemoglobin 30.0 pg (26-34); Mean Corpuscular Volume 88.2 fl (80-100); Nucleated Red Blood Cells Absolute Auto 0.000 K/mm3 (0.0-0.012); Nucleated Red Blood Cells Perc 0.0 % (0.0-0.2); Platelet Count Result 330 k/mm3 (150-375); Red Blood Count 5.17 M/mm3 (4.6-6.20); White Blood Count 10.2 K/mm3 (4.5-10.0)
[2025-05-18 18:14] LABS: Alanine Aminotransferase 87 U/L (6-50); Albumin Level 4.4 g/dL (3.5-5.1); Alkaline Phosphatase 121 U/L (38-126); Anion Gap 12 mmol/L (4-12); Aspartate Amino Transferase 75 U/L (17-59); Bilirubin,Total 1.0 mg/dL (0.2-1.3); Blood Urea Nitrogen 28 mg/dL (9-20); Calcium 9.5 mg/dL (8.4-10.2); Carbon Dioxide 25 mmol/L (22-30); Chloride 96 mmol/L (98-107); Estimated Glomerular Filt Rate 51; Glucose 131 mg/dL (65-110); Potassium 4.1 mmol/L (3.4-5.0); Sodium 133 mmol/L (137-145); Total Protein 8.1 g/dL (6.3-8.2)
--- OUTSIDE RECORDS SUMMARY | 2025-05-19 04:17 | XMS_ITS | Encounter Summary ---
Author Organization [facility] Healthcare Address [address] [place] [id number] Care Team Providers Care Director [employer] Name Role Phone No, Physician Primary Care Provider Encounter Details Date Type Department Care Team (Late st Contact Info) Description 12/25/2022 Telephone [facility] [address] [place] [id number] Patito Siegel, RT Social History Tobacco Use Types Packs/Day Years Used Date Smoking Tobacco: Never Smokeless Tobacco: Never Personal Safety Answer Date Recorded Have you ever been in or are you currently in a harmful physical or emotional relationship or is someone making you feel afraid or unsafe? 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 No 12/25/2022 9:39 PM JOSEPHT Elayne Aly RN * Question Answer Date of Assessment Author 1. In the past month, have y ou wished you were or that you could go to sleep and not wake up? No 12/25/2022 9:39 PM Elayne Gaviria RN 2. In the past month, have y ou actually had any thoughts of killing yourself? No 12/25/2022 9:39 PM Elayne Gaviria RN 6. Have you ever done anythi ng, started to do anything, or prepared to do anything to end your life? No 12/25/2022 9:39 PM CDT Elayne Aly RN * Suicide Risk Level Answer Date of Assessment Author No risk level 12/25/2022 9:39 PM JOSEPHT Elayne Aly RN * Alcohol Withdrawal BP Hierarchy Answer Date of Assessment Author 104 12/25/2022 9:38 PM CDT Elayne Aly RN * Fall Risk Assessment Tool - MEDFRAT Question Answer Date of Assessment Author Prior Fall Event (Autopopulated from EMR) None found 12/25/2022 9:41 PM CDAlpa Rajput RN History of falling in last 3 months, including since admission 0 12/25/2022 9:41 PM Elayne Gaviria RN Confusion or disorientation 0 12/25/2022 9: 41 PM CDT Elayne Aly RN Intoxicated or sedated 0 12/25/2022 9:41 PM Elayne Gaviria RN Impaired gait 0 12/25/2022 9:41 PM CDT Elayne Lan RN Mobility assist device used 0 12/25/2022 9: 41 PM Elayne Gaviria RN Altered elimination 0 12/25/2022 9:41 PM CD Elayne Rajput RN Fall risk score: (1-2 low risk), (3-4 moderate risk), (5 or more high risk) 0 12/25/2022 9:41 PM Elayne Gaviria RN documented as of this encounter Mental Status * Neuro (WDL) Answer Entry Date Author WDL 12/25/2022 10:00 PM CDT Maria G Najera RN documented in this encounter Plan of Treatment Not on file documented as of this encounter Visit Diagnoses Not on filedocumented in this encounter Additional Health Concerns Infection Onset Date Last Indicated Resolved Time COVID: Suspected 07/03/2023 07/03/2023 07/03/2023 6:22 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
--- OUTSIDE RECORDS SUMMARY | 2025-05-19 04:18 | XMS_ITS | Clinical Summary ---
Author Organization [facility] Address [address] [place] [address] Care Team Providers Care Freight Representative Name Role Phone No, Physician Primary Care Provider [phone] Allergies Active Allergy Reactions Criticality Noted Date Comments Cephalosporins Rash Medium 08/20/2017 Medications cyclobenzaprine (FLEXERIL) 5 mg tablet Take 1 tablet (5 mg total) by mouth 3 (three) times a day as needed for muscle spasms 30 tablet 12/25/2022 Active naproxen (ANAPROX DS) 550 mg tabletIndicatio ns:Pain Take 1 tablet (550 mg total) by mouth 2 (two) times a day with meals 14 tablet 12/25/2022 Active benzonatate (TESSALON) 200 mg capsuleIndicati ons:Acute URI Take 1 capsule (200 mg total) by mouth 3 (three) times a day as needed for cough 30 capsule 07/31/2023 Active Active Problems No known active problems Encounters Date Type Department Care Team Description 05/09/2025 3:15 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 Gender Identity Not on file Sexual Orientation Not on file Last Filed Vital Signs Vital Sign Reading Time Taken Comments Blood Pressure 128/84 05/09/2025 3:21 PM EARTH MOVING TECHNICIAN Pulse 111 05/09/2025 3:21 PM EARTH MOVING TECHNICIAN Temperature 37.7 C (99.9 F) 05/09/2025 3:21 PM EARTH MOVING TECHNICIAN Respiratory Rate 16 07/31/2023 6:44 PM EARTH MOVING TECHNICIAN Oxygen Saturation 98% 05/09/2025 3:21 PM EARTH MOVING TECHNICIAN Inhaled Oxygen Concentration - - Weight 97.5 kg (215 lb) 05/09/2025 3:21 PM EARTH MOVING TECHNICIAN Height 177.8 cm (5' 10) 07/31/2023 6:44 PM EARTH MOVING TECHNICIAN Body Mass Index 30.85 07/31/2023 6:44 PM EARTH MOVING TECHNICIAN Plan of Treatment Health Maintenance Due Date Last Done Comments Colon Cancer Screening-Colonoscopy 1970 Depression Screening 1970 Hepatitis C Screening 1970 Prostate Cancer Screening-PSA 1970 DTaP/Tdap/Td Vaccine (1 - Tdap) 1981 Hepatitis B Screening 1988 Regular Well Visit/Exam 18-64 1988 Zoster Vaccine (1 of 2) 2020 Covid-19 Vaccine (2024-2 6 season) 2025 11/09/2022, 12/01/2020, 10/30/2020 Influenza Vaccine (#1) 2025 Pneumococcal vaccine <65 Aged Out No longer eligible based on patient's age to complete this topic Care Teams Freight Representative Relationship Specialty Start Date End Date No, Physician PCP - General 08/20/17
--- OUTSIDE RECORDS SUMMARY | 2025-05-19 04:19 | XMS_ITS | Clinical Summary ---
Author Organization [facility] Address [address] [place] [address] Phone Care Team Providers Care An/Ssn 2 4 Operator Name Role Phone Provider, None Primary Care Provider Unavailabl e Allergies Active Allergy Reactions Criticality Noted Date Comments Cephalosporins Rash Medium 08/20/2017 Medications dicyclomine (BENTYL) 20 MG Tablet Take 1 Tablet by mouth every 6 hours. 30 Tablet 05/06/2025 Active ondansetron (ZOFRAN-ODT) 4 MG TABLET DISPERSIBLE Take 1 Tablet by mouth every 8 hours as needed for Nausea - 1st line. 20 Tablet 05/06/2025 Active Encounters Date Type Department Care Team Description 05/06/2025 8:41 AM CATALOGUE ILLUSTRATOR - 05/06/2025 11:03 AM CATALOGUE ILLUSTRATOR Emergency [facility] Emergency [address] [place] [address] Channing Membreno DO Abdominal pain, LLQ Discharge Disposition: Discharged to home or Selfcare 05/06/2025 Travel from Last 3 Months Social History Tobacco Use Types Packs/Day Years Used Date Smoking Tobacco: Never Assessed Sex and Gender Information Value Date Recorded Sex Assigned at Not on file Legal Sex Male 12:12 AM CDT Gender Identity Not on file Sexual Orientation Not on file Last Filed Vital Signs Vital Sign Reading Time Taken Comments Blood Pressure 154/80 05/06/2025 11:00 AM CATALOGUE ILLUSTRATOR Pulse 73 05/06/2025 11:00 AM CATALOGUE ILLUSTRATOR Temperature 36.8 C (98.3 F) 05/06/2025 11:00 AM CATALOGUE ILLUSTRATOR Respiratory Rate 18 05/06/2025 11:00 AM CATALOGUE ILLUSTRATOR Oxygen Saturation 99% 05/06/2025 11:00 AM CATALOGUE ILLUSTRATOR Inhaled Oxygen Concentration - - Weight 97.1 kg (214 lb) 05/06/2025 8:45 AM CATALOGUE ILLUSTRATOR Height 177.8 cm (5' 10) 05/06/2025 8:45 AM CATALOGUE ILLUSTRATOR Body Mass Index 30.71 05/06/2025 8:45 AM CATALOGUE ILLUSTRATOR Plan of Treatment Health Maintenance Due Date Last Done Comments Hepatitis C Virus (HCV) Screening 1970 TdaP Immunization 1970 Hepatitis B Immunization (1 of 3 - 19+ 3-dose series) 1989 Cologuard 2015 Colonoscopy 2015 Colorectal Cancer Screening 2015 Immunochemical Fecal Occult Blood 2015 Pneumococcal Immunization (50+ years) (1 of 1 - PCV) 2020 Zoster Immunization (1 of 2) 2020 Influenza Immunization (#1) 2025 SARS-COV-2 Immunization ( season) 2025 05/02/2023, 11/09/2022, 12/01/2020, Additional history exists PSA Discussion 2025 Respiratory Syncytial Virus (RSV) Immunization (Adult) (1 - 1-dose 75+ series) 2045 Human Papillomavirus (HPV) Immunization Aged Out No longer eligible based on patient's age to complete this topic Meningococcal Immunization (ACWY) Aged Out No longer eligible based on patient's age to complete this topic Rotavirus Immunization Aged Out No lo nger eligible based on patient's age to complete this topic Procedures Procedure Name Priority Date/Time Associated Diagnosis Comments URINALYSIS REFLEX IF INDICATED BY ABNORMAL RESULTS STAT 05/06/2025 10:[address] ABDOMEN PELVIS W/ CONTRAST Stat with Interpretation 05/06/2025 10:11 AM CATALOGUE ILLUSTRATOR GOLD TOP TUBE STAT 05/06/2025 9:07 AM CATALOGUE ILLUSTRATOR BLUE TOP TUBE STAT 05/06/2025 9:07 AM CATALOGUE ILLUSTRATOR CBC WITH AUTO DIFFERENTIAL STAT 05/06/2025 9:07 AM CATALOGUE ILLUSTRATOR EXTRA TUBES STAT 05/06/2025 9:07 AM CATALOGUE ILLUSTRATOR LIPASE STAT 05/06/2025 9:07 AM CATALOGUE ILLUSTRATOR COMPLETE BLOOD COUNT (CBC) WITH DIFF STAT 05/06/2025 9:07 AM CATALOGUE ILLUSTRATOR CMP (COMPREHENSIVE METABOLIC PANEL) STAT 05/06/2025 9:07 AM CATALOGUE ILLUSTRATOR from Last 3 Months Results * (ABNORMAL) Urinalysis Reflex if Indicated by Abnormal Results (05/06/2025 10:25 AM CATALOGUE ILLUSTRATOR) SPECIFIC GRAVITY 1.010 1.003 - 1.030 05/06/2025 10:49 AM CATALOGUE ILLUSTRATOR [facility] URINE PH 8.0 5.0 - 9.0 05/06/2025 10:49 AM CATALOGUE ILLUSTRATOR [facility] WBC ESTERASE Negative Negative 05/06/2025 10:49 AM CATALOGUE ILLUSTRATOR [facility] NITRITE Negative Negative 05/06/2025 10:49 AM CATALOGUE ILLUSTRATOR [facility] PROTEIN, RANDOM URINE Negative Negative 05/06/2025 10:49 AM [facility] URINE GLUCOSE, QUAL 250 mg/dL(A) Negative 05/06/2025 10:49 AM [facility] URINE KETONES 15 mg/dL(A) Negative 05/06/2025 10:49 AM CATALOGUE ILLUSTRATOR [facility] UROBILINOGEN Normal Normal mg/dL 05/06/2025 10:49 AM CATALOGUE ILLUSTRATOR [facility] URINE BLOOD Negative Negative vipul/ul 05/06/2025 10:49 AM [facility] URINALYSIS COLOR Yellow 05/06/20 10:49 AM [facility] URINALYSIS CLARITY Clear 05/06/2025 10:49 AM [facility] Urine URINE SPECIMEN / Unknown Non-Phlebotomy Collection / Unknown 05/06/2025 10:25 AM CATALOGUE ILLUSTRATOR 05/06/2025 10:43 AM CATALOGUE ILLUSTRATOR us Channing Memberno DO URINE ORDERABLES Final Result [facility] [address] [place] [address] * CT ABDOMEN PELVIS W/ CONTRAST (05/06/2025 10:11 AM CATALOGUE ILLUSTRATOR) Anatomical Region Laterality Modality Abdomen N/A Computed Tomogra phy 05/06/2025 10:1 1 AM CATALOGUE ILLUSTRATOR Impressions 05/06/2025 10:26 AM CATALOGUE ILLUSTRATOR IMPRESSION: No acute finding. Narrative 05/06/2025 10:[address] ABDOMEN PELVIS W/ CONTRAST : 05/06/2025 10:11 AM DICTATING PHYSICIAN: BERTA REYES [facility]. HISTORY: As below. ADDITIONAL TECHNOLOGIST HISTORY: RLQ abdominal pain (Age >= 14y), abdominal cramping, nausea/vomiting x this morning. TECHNIQUE: Multiple helical axial images were obtained through the abdomen and pelvis with intravenous contrast. Multiplanar reformats were performed. Image acquisition performed utilizing automated exposure control (AEC) and iterative reconstruction software in order to lower patient dose. IV CONTRAST TYPE AND VOLUME: Administered contrast documentation is located within the patient's electronic health record. RADIATION DOSE: Radiation dose reduction techniques were employed. CTDIvol: 2.9 - 78.3 mGy. DLP: 1588 mGy-cm. mGycm COMPARISON: None. FINDINGS: Lung bases: Clear. ABDOMEN: Liver: No focal lesion or intrahepatic bile duct dilatation. Portal venous system is patent. Gallbladder: No evidence for wall thickening or inflammation. Small amount of layering biliary sludge or noncalcified stones present. Spleen: Within normal limits. No evidence for splenomegaly or focal lesion. Pancreas: No focal lesion or pancreatic ductal dilatation. Adrenal glands: No focal nodule. Kidneys: Bilateral renal radiotracer excretion present. Simple cyst superior pole left kidney measures 1.6 cm. No follow-up imaging is recommended per consensus recommendations based on imaging criteria.. Abdominal aorta and IVC: Abdominal aorta is normal in caliber. IVC is grossly normal. Retroperitoneum: Normal Mesentery/Peritoneum: Normal. Stomach and small bowel: Within normal limits. No evidence for obstruction. PELVIS: Free fluid: No free fluid or fluid collection. Reproductive: Normal. Bladder: Normal contour and wall thickness. Lymphadenopathy: No pathologic lymphadenopathy. Colon: Normal in course and caliber. Appendix: Surgically absent. Skeletal structures and soft tissues: Age-appropriate degenerative changes. No suspicious osseous lytic or blastic process. No soft tissue abnormality. Procedure Note Berta Reyes MD - 05/06/2025 CT ABDOMEN PELVIS W/ CONTRAST : 05/06/2025 10:11 AM DICTATING PHYSICIAN: BERTA REYES [facility]. HISTORY: As below. ADDITIONAL TECHNOLOGIST HISTORY: RLQ abdominal pain (Age >= 14y),abdominal cramping, nausea/vomiting x this morning. TECHNIQUE: Multiple helical axial images were obtained through the abdomen and pelviswith intravenous contrast. Multiplanar reformats were performed. Imageacquisition performed utilizing automated exposure control (AEC) anditerative reconstruction software in order to lower patient dose. IV CONTRAST TYPE AND VOLUME: Administered contrast documentation islocated within the patient's electronic health record. RADIATION DOSE: Radiation dose reduction techniques were employed.CTDIvol: 2.9 - 78.3 mGy. DLP: 1588 mGy-cm. mGycm COMPARISON: None. FINDINGS: Lung bases: Clear. ABDOMEN: Liver: No focal lesion or intrahepatic bile duct dilatation. Portal venoussystem is patent. Gallbladder: No evidence for wall thickening or inflammation. Smallamount of layering biliary sludge or noncalcified stones present. Spleen: Within normal limits. No evidence for splenomegaly or focallesion. Pancreas: No focal lesion or pancreatic ductal dilatation. Adrenal glands: No focal nodule. Kidneys: Bilateral renal radiotracer excretion present. Simple cystsuperior pole left kidney measures 1.6 cm. No follow-up imaging isrecommended per consensus recommendations based on imaging criteria.. Abdominal aorta and IVC: Abdominal aorta is normal in caliber. IVC isgrossly normal. Retroperitoneum: Normal Mesentery/Peritoneum: Normal. Stomach and small bowel: Within normal limits. No evidence forobstruction. PELVIS: Free fluid: No free fluid or fluid collection. Reproductive: Normal. Bladder: Normal contour and wall thickness. Lymphadenopathy: No pathologic lymphadenopathy. Colon: Normal in course and caliber. Appendix: Surgically absent. Skeletal structures and soft tissues: Age-appropriate degenerativechanges. No suspicious osseous lytic or blastic process. No soft tissueabnormality. IMPRESSION: No acute finding. Channing Membreno DO IMG CT ORDERABLES Final Result * Gold Top Tube (05/06/2025 9:07 AM CATALOGUE ILLUSTRATOR) Blood No Phlebotomy Charged / Unknown 05/06/2025 9:07 AM CATALOGUE ILLUSTRATOR 05/06/2025 9:22 AM CATALOGUE ILLUSTRATOR us Channing Membreno DO CHEMISTRY ORDERABLES Fi nal Result Performing Organization Address [facility]/ZIP Co de Phone Number [facility] [address] [place] [address] * Blue Top Tube (05/06/2025 9:07 AM CATALOGUE ILLUSTRATOR) Blood No Phlebotomy Charged / Unknown 05/06/2025 9:07 AM CATALOGUE ILLUSTRATOR 05/06/2025 9:22 AM CATALOGUE ILLUSTRATOR Channing Membreno DO HEMATOLOGY ORDERABLES F inal Result Performing Organization Address [facility] Co de Phone Number [facility] [address] [place] [address] * (ABNORMAL) CBC with Auto Differential (05/06/2025 9:07 AM CATALOGUE ILLUSTRATOR) WBC 7.07 4.00 - 12.00 10(3)/mcL 05/06/2025 9:27 AM CATALOGUE ILLUSTRATOR [facility] RBC 5.51 4.40 - 5.80 10(6)/mcL 05/06/2025 9:27 AM CATALOGUE ILLUSTRATOR [facility] HEMOGLOBIN (HGB) 16.6(H) 13.0 - 16.5 g/dL 05/06/2025 9:27 AM CATALOGUE ILLUSTRATOR [facility] HEMATOCRIT (HCT) 46.9 38.0 - 50.0 % 05/06/2025 9:27 AM CATALOGUE ILLUSTRATOR [facility] MCV 85.1 82.0 - 96.0 fL 05/06/2025 9:27 AM [facility] MCH 30.1 26.0 - 32.0 pg 05/06/2025 9:27 AM [facility] MCHC 35.4 31.0 - 36.0 g/dL 05/06/2025 9:27 AM [facility] PLATELET COUNT 180 140 - 440 10(3)/mcL 05/06/2025 9:27 AM [facility] RDW 11.8 11.8 - 15.5 % 05/06/2025 9:27 AM [facility] MPV 10.2 8.0 - 12.6 fL 05/06/2025 9:27 AM [facility] NEUTROPHILS 75.7(H) 40.0 - 68.0 % 05/06/2025 9:27 AM [facility] LYMPHOCYTES 16.1(L) 19.0 - 49.0 % 05/06/2025 9:27 AM [facility] MONOCYTES 6.4 3.0 - 13.0 % 05/06/2025 9:27 AM [facility] EOSINOPHILS 1.1 0.0 - 8.0 % 05/06/2025 9:27 AM [facility] BASOPHILS 0.4 0.0 - 1.0 % 05/06/2025 9:27 AM [facility] IMMATURE GRANULOCYTE 0.3 0.0 - 0.4 % 05/06/2025 9:27 AM [facility] ABSOLUTE NEUTROPHILS 5.35(H) 1.40 - 5.30 10(3)/mcL 05/06/2025 9:27 AM [facility] ABSOLUTE LYMPHOCYTES 1.14 0.90 - 3.30 10(3)/mcL 05/06/2025 9:27 AM [facility] ABSOLUTE MONOCYTES 0.45 0.10 - 0.90 10(3)/mcL 05/06/2025 9:27 AM [facility] ABSOLUTE EOSINOPHIL 0.08 0.00 - 0.50 10(3)/mcL 05/06/2025 9:27 AM CATALOGUE ILLUSTRATOR [facility] ABSOLUTE BASOPHILS 0.03 0.00 - 0.10 10(3)/mcL 05/06/2025 9:27 AM CATALOGUE ILLUSTRATOR [facility] ABSOLUTE IMMATURE GRANULOCYTE 0.02 0.00 - 0.03 10 (3) mcL. 05/06/2025 9:27 AM CATALOGUE ILLUSTRATOR [facility] NRBC PER 100 WBC 0 05/06/20 9:27 AM CATALOGUE ILLUSTRATOR [facility] Blood Venipuncture / Unknown 05/06/2025 9:07 AM CATALOGUE ILLUSTRATOR 05/06/2025 9:21 AM CATALOGUE ILLUSTRATOR us Channing Membreno DO HEMATOLOGY ORDERABLES F inal Result Performing Organization Address City/[facility]/ZIP Co de Phone Number [facility] [address] [place] [address] * Lipase (05/06/2025 9:07 AM CATALOGUE ILLUSTRATOR) Pathologist [facility] LIPASE 16 8 - 78 U/L 05/06/2025 9:46 AM CATALOGUE ILLUSTRATOR [facility] Blood Venipuncture / Unknown 05/06/2025 9:07 AM CATALOGUE ILLUSTRATOR 05/06/2025 9:21 AM CATALOGUE ILLUSTRATOR us Channing Membreno DO CHEMISTRY ORDERABLES Fi nal Result Performing Organization Address City/[facility]/ZIP Co de Phone Number [facility] [address] [place] [address] * (ABNORMAL) CMP (Comprehensive Metabolic Panel) (05/06/2025 9:07 AM CATALOGUE ILLUSTRATOR) SODIUM 139 136 - 145 mmol/L 05/06/2025 9:46 AM CATALOGUE ILLUSTRATOR [facility] POTASSIUM 3.6 3.5 - 5.1 mmol/L 05/06/2025 9:46 AM CATALOGUE ILLUSTRATOR [facility] CHLORIDE 104 98 - 107 mmol/L 05/06/2025 9:46 AM [facility] CO2, VENOUS 21(L) 22 - 30 mmol/L 05/06/2025 9:46 AM [facility] ANION GAP 17.6 <18.0 mmol/L 05/06/2025 9:46 AM [facility] GLUCOSE 185(H) 70 - 99 mg/dL 05/06/2025 9:46 AM [facility] BUN 18 8 - 26 mg/dL 05/06/2025 9:46 AM [facility] CREATININE, BLOOD 1.04 0.70 - 1.30 mg/dL 05/06/2025 9:46 AM [facility] BUN/CREATININE RATIO 17 12 - 20 ratio 05/06/2025 9:46 AM [facility] TOTAL PROTEIN 7.9 6.0 - 8.0 g/dL 05/06/2025 9:46 AM [facility] ALBUMIN 5.1(H) 3.5 - 5.0 g/dL 05/06/2025 9:46 AM [facility] A/G RATIO 1.8 1.0 - 2.2 05/06/2025 9:46 AM [facility] CALCIUM 10.5 8.7 - 10.5 mg/dL 05/06/2025 9:46 AM [facility] T BILI 1.8(H) 0.2 - 1.2 mg/dL 05/06/2025 9:46 AM [facility] SGOT (AST) 33 <43 U/L 05/06/2025 9:46 AM [facility] SGPT (ALT) 40 <56 U/L 05/06/2025 9:46 AM [facility] ALKALINE PHOSPHATASE 74 40 - 150 U/L 05/06/2025 9:46 AM [facility] GFR, ESTIMATED >60 >=60 05/06/2025 9:46 AM [facility] Comment: Creatinine Clearance is the preferred criteria for selecting drug dose adjustments in renally impaired patients. The GFR is provided as additional pertinent clinical information. GFR is reported in mL/min/1.73 sq m. Calculation based on the 2020 Chronic Kidney Disease Epidemiology Collaboration (CKD-EPI) equation refit without adjustment for race. GFR, EST. >60 >=60 025 9:46 AM CATALOGUE ILLUSTRATOR [facility] Comment: Creatinine Clearance is the preferred criteria for selecting drug dose adjustments in renally impaired patients. The GFR is provided as additional pertinent clinical information. GFR is reported in mL/min/1.73 sq m. Calculation based on the 2009 Chronic Kidney Disease Epidemiology Collaboration (CKD-EPI). GFR, EST. NONAFRICAN >60 >=60 05/06/2025 9:46 AM CATALOGUE ILLUSTRATOR [facility] Comment: Creatinine Clearance is the preferred criteria for selecting drug dose adjustments in renally impaired patients. The GFR is provided as additional pertinent clinical information. GFR is reported in mL/min/1.73 sq m. Calculation based on the 2009 Chronic Kidney Disease Epidemiology Collaboration (CKD-EPI). Blood Venipuncture / Unknown 05/06/2025 9:07 AM CATALOGUE ILLUSTRATOR 05/06/2025 9:21 AM CATALOGUE ILLUSTRATOR us Channing Membreno DO CHEMISTRY ORDERABLES Fi nal Result [facility] [address] [place] [address] from Last 3 Months Care Teams An/Ssn 2 4 Operator Relationship Specialty Start Date End Date Provider, None [place] PCP - General 05/06/25
== END 2025-05-18 17:39 | disposition home or self-care (01) ==
LOC: ANHLAB 17:46
PROVIDERS: Physician Assistant; Visit Provider Family Medicine
DX: K81.0 Acute cholecystitis (principal)
CPT/HCPCS: 36415; 80053; 85025

== ENCOUNTER 2025-05-31 11:39 | Outpatient (CLI) | payer SELFPAY ==
--- NOTE | 2025-05-31 11:51 | ECG_ITS ---
Test Date: 2025-05-31 12:06:59 Measurements Intervals [place] Rate: 71 P: 36 MA: 165 QRS: 34 QRSD: 111 T: 31 QT: 373 QTc: 406 Interpretive Statements SINUS RHYTHM INTRAVENTRICULAR CONDUCTION DELAY MINIMAL Q WAVES- INFERIOR LEADS BASELINE ARTIFACT- I, II, III, AVR, AVL, AVF, V1-V6 BORDERLINE ECG No previous ECG available for comparison Electronically Signed On 05-31-2025 13:14:44 MANIPULATIVE THERAPY SPECIALIST by Aric Hood D.O.
[2025-05-31 12:58] LABS: Alanine Aminotransferase 38 U/L (6-50); Albumin Level 4.3 g/dL (3.5-5.1); Alkaline Phosphatase 82 U/L (38-126); Amylase 58 U/L (30-110); Aspartate Amino Transferase 35 U/L (17-59); Bilirubin,Total 1.2 mg/dL (0.2-1.3); Lipase 37 U/L (23-300); Total Protein 7.4 g/dL (6.3-8.2)
--- OUTSIDE RECORDS SUMMARY | 2025-05-31 13:13 | XMS_ITS | Clinical Summary ---
Author Organization [facility] Address [address] [place] [address] Care Team Providers Care Manager Review Name Role Phone No, Physician Primary Care Provider [phone] Allergies Active Allergy Reactions Criticality Noted Date [...] Department Care Team Description 05/09/2025 3:15 PM RESORT HOST Office Visit [facility] at [address] [address] Cathy Pang NP Abdominal pain, [...] on file Legal Sex Male 8:01 PM RESORT HOST Gender Identity Not on file Sexual Orientation Not on file Last Filed Vital Signs Vital Sign Reading Time Taken Comments Blood Pressure 128/84 05/09/2025 3:21 PM RESORT HOST Pulse 111 05/09/2025 3:21 PM RESORT HOST Temperature 37.7 C (99.9 F) 05/09/2025 3:21 PM RESORT HOST Respiratory Rate 16 07/31/2023 6:44 PM RESORT HOST Oxygen Saturation 98% 05/09/2025 3:21 PM RESORT HOST Inhaled Oxygen Concentration - - Weight 97.5 kg (215 lb) 05/09/2025 3:21 PM RESORT HOST Height 177.8 cm (5' 10) 07/31/2023 6:44 PM RESORT HOST Body Mass Index 30.85 07/31/2023 6:44 PM RESORT HOST Plan of Treatment Health Maintenance Due Date [...] age to complete this topic Care Teams Manager Review Relationship Specialty Start Date End Date No, Physician PCP - General 08/20/17
--- OUTSIDE RECORDS SUMMARY | 2025-05-31 13:13 | XMS_ITS | Encounter Summary ---
Author Organization [facility] Address [address] [place] [id number] Care Team Providers Care Family Service Worker Name Role Phone No, Physician Primary Care Provider [phone] Encounter Details Date Type Department Care Team (Late st Contact Info) Description 12/25/2022 Telephone [facility] [address] [place] [id number] Patito Siegel, RT Social History Tobacco Use [...] on file Legal Sex Male 8:01 PM OPHTHALMIC PHOTOGRAPHER Gender Identity Not on file Sexual Orientation [...] COVID: Suspected 07/03/2023 07/03/2023 07/03/2023 6:22 PM OPHTHALMIC PHOTOGRAPHER COVID: Suspected 07/03/2023 07/03/2023 07/03/2023 10:45 PM OPHTHALMIC PHOTOGRAPHER COVID: Suspected 07/31/2023 07/31/2023 07/31/2023 7:05 PM OPHTHALMIC PHOTOGRAPHER COVID: Suspected 07/31/2023 07/31/2023 07/31/2023 11:18 PM OPHTHALMIC PHOTOGRAPHER documented as of this encounter Care Teams Family Service Worker Relationship Specialty Start Date End Date No, Physician PCP - General 08/20/17 documented as of this encounter
--- OUTSIDE RECORDS SUMMARY | 2025-05-31 13:14 | XMS_ITS | Clinical Summary ---
Author Organization [facility] Address [address] [place] [address] Phone Care Team Providers Care Passenger Tire Builder Name Role Phone Provider, None Primary Care [...] Department Care Team Description 05/06/2025 8:41 AM COSTUME TECHNICIAN - 05/06/2025 11:03 AM COSTUME TECHNICIAN Emergency [facility] Emergency [address] [place] [address] Channing Membreno DO Abdominal pain, [...] Comments Blood Pressure 154/80 05/06/2025 11:00 AM COSTUME TECHNICIAN Pulse 73 05/06/2025 11:00 AM COSTUME TECHNICIAN Temperature 36.8 C (98.3 F) 05/06/2025 11:00 AM COSTUME TECHNICIAN Respiratory Rate 18 05/06/2025 11:00 AM COSTUME TECHNICIAN Oxygen Saturation 99% 05/06/2025 11:00 AM COSTUME TECHNICIAN Inhaled Oxygen Concentration - - Weight 97.1 kg (214 lb) 05/06/2025 8:45 AM COSTUME TECHNICIAN Height 177.8 cm (5' 10) 05/06/2025 8:45 AM COSTUME TECHNICIAN Body Mass Index 30.71 05/06/2025 8:45 AM COSTUME TECHNICIAN Plan of Treatment Health Maintenance Due [...] BY ABNORMAL RESULTS STAT 05/06/2025 10:[address] ABDOMEN PELVIS W/ CONTRAST Stat with Interpretation 05/06/2025 10:11 AM COSTUME TECHNICIAN GOLD TOP TUBE STAT 05/06/2025 9:07 AM COSTUME TECHNICIAN BLUE TOP TUBE STAT 05/06/2025 9:07 AM COSTUME TECHNICIAN CBC WITH AUTO DIFFERENTIAL STAT 05/06/2025 9:07 AM COSTUME TECHNICIAN EXTRA TUBES STAT 05/06/2025 9:07 AM COSTUME TECHNICIAN LIPASE STAT 05/06/2025 9:07 AM COSTUME TECHNICIAN COMPLETE BLOOD COUNT (CBC) WITH DIFF STAT 05/06/2025 9:07 AM COSTUME TECHNICIAN CMP (COMPREHENSIVE METABOLIC PANEL) STAT 05/06/2025 9:07 AM COSTUME TECHNICIAN from Last 3 Months Results * (ABNORMAL) Urinalysis Reflex if Indicated by Abnormal Results (05/06/2025 10:25 AM COSTUME TECHNICIAN) SPECIFIC GRAVITY 1.010 1.003 - 1.030 05/06/2025 10:49 AM COSTUME TECHNICIAN [facility] URINE PH 8.0 5.0 - 9.0 05/06/2025 10:49 AM COSTUME TECHNICIAN [facility] WBC ESTERASE Negative Negative 05/06/2025 10:49 AM COSTUME TECHNICIAN [facility] NITRITE Negative Negative 05/06/2025 10:49 AM COSTUME TECHNICIAN [facility] PROTEIN, RANDOM URINE Negative Negative 05/06/2025 10:49 AM [facility] URINE GLUCOSE, QUAL 250 mg/dL(A) Negative 05/06/2025 10:49 AM [facility] URINE KETONES 15 mg/dL(A) Negative 05/06/2025 10:49 AM COSTUME TECHNICIAN [facility] UROBILINOGEN Normal Normal mg/dL 05/06/2025 10:49 AM COSTUME TECHNICIAN [facility] URINE BLOOD Negative Negative vipul/ul 05/06/2025 10:49 AM [facility] URINALYSIS COLOR Yellow 05/06/20 10:49 AM [facility] URINALYSIS CLARITY Clear 05/06/2025 10:49 AM [facility] Urine URINE SPECIMEN / Unknown Non-Phlebotomy Collection / Unknown 05/06/2025 10:25 AM COSTUME TECHNICIAN 05/06/2025 10:43 AM COSTUME TECHNICIAN us Channing Membreno DO URINE ORDERABLES Final Result [facility] [address] [place] [address] * CT ABDOMEN PELVIS W/ CONTRAST (05/06/2025 10:11 AM COSTUME TECHNICIAN) Anatomical Region Laterality Modality Abdomen N/A Computed Tomogra phy 05/06/2025 10:1 1 AM COSTUME TECHNICIAN Impressions 05/06/2025 10:26 AM COSTUME TECHNICIAN IMPRESSION: No acute finding. Narrative 05/06/2025 10:[address] ABDOMEN PELVIS W/ CONTRAST : 05/06/2025 10:11 AM DICTATING PHYSICIAN: [facility]. HISTORY: As below. ADDITIONAL TECHNOLOGIST [...] 05/06/2025 10:11 AM DICTATING PHYSICIAN: [facility]. HISTORY: As below. ADDITIONAL TECHNOLOGIST HISTORY: [...] * Gold Top Tube (05/06/2025 9:07 AM COSTUME TECHNICIAN) Blood No Phlebotomy Charged / Unknown 05/06/2025 9:07 AM COSTUME TECHNICIAN 05/06/2025 9:22 AM COSTUME TECHNICIAN us Channing Membreno DO CHEMISTRY ORDERABLES Fi nal Result Performing Organization Address [facility]/ZIP Co de Phone Number [facility] [address] [place] [address] * Blue Top Tube (05/06/2025 9:07 AM COSTUME TECHNICIAN) Blood No Phlebotomy Charged / Unknown 05/06/2025 9:07 AM COSTUME TECHNICIAN 05/06/2025 9:22 AM COSTUME TECHNICIAN Channing Membreno DO HEMATOLOGY ORDERABLES F inal Result Performing Organization Address [facility] Co de Phone Number [facility] [address] [place] [address] * (ABNORMAL) CBC with Auto Differential (05/06/2025 9:07 AM COSTUME TECHNICIAN) WBC 7.07 4.00 - 12.00 10(3)/mcL 05/06/2025 9:27 AM COSTUME TECHNICIAN [facility] RBC 5.51 4.40 - 5.80 10(6)/mcL 05/06/2025 9:27 AM COSTUME TECHNICIAN [facility] HEMOGLOBIN (HGB) 16.6(H) 13.0 - 16.5 g/dL 05/06/2025 9:27 AM COSTUME TECHNICIAN [facility] HEMATOCRIT (HCT) 46.9 38.0 - 50.0 % 05/06/2025 9:27 AM COSTUME TECHNICIAN [facility] MCV 85.1 82.0 - 96.0 fL 05/06/2025 9:27 AM [facility] MCH 30.1 26.0 - 32.0 pg 05/06/2025 9:27 AM [facility] MCHC 35.4 31.0 - 36.0 g/dL 05/06/2025 9:27 AM [facility] PLATELET COUNT 180 140 - 440 10(3)/mcL 05/06/2025 9:27 AM [facility] RDW 11.8 11.8 - 15.5 % 05/06/2025 9:27 AM [facility] MPV 10.2 8.0 - 12.6 fL 05/06/2025 9:27 AM [facility] NEUTROPHILS 75.7(H) 40.0 - 68.0 % 05/06/2025 9:27 AM [facility] LYMPHOCYTES 16.1(L) 19.0 - 49.0 % 05/06/2025 9:27 AM [facility] MONOCYTES 6.4 3.0 - 13.0 % 05/06/2025 9:27 AM [facility] EOSINOPHILS 1.1 0.0 - 8.0 % 05/06/2025 9:27 AM [facility] BASOPHILS 0.4 0.0 - 1.0 % 05/06/2025 9:27 AM [facility] IMMATURE GRANULOCYTE 0.3 0.0 - 0.4 % 05/06/2025 9:27 AM [facility] ABSOLUTE NEUTROPHILS 5.35(H) 1.40 - 5.30 10(3)/mcL 05/06/2025 9:27 AM [facility] ABSOLUTE LYMPHOCYTES 1.14 0.90 - 3.30 10(3)/mcL 05/06/2025 9:27 AM [facility] ABSOLUTE MONOCYTES 0.45 0.10 - 0.90 10(3)/mcL 05/06/2025 9:27 AM [facility] ABSOLUTE EOSINOPHIL 0.08 0.00 - 0.50 10(3)/mcL 05/06/2025 9:27 AM COSTUME TECHNICIAN [facility] ABSOLUTE BASOPHILS 0.03 0.00 - 0.10 10(3)/mcL 05/06/2025 9:27 AM COSTUME TECHNICIAN [facility] ABSOLUTE IMMATURE GRANULOCYTE 0.02 0.00 - 0.03 10 (3) mcL. 05/06/2025 9:27 AM COSTUME TECHNICIAN [facility] NRBC PER 100 WBC 0 05/06/20 9:27 AM COSTUME TECHNICIAN [facility] Blood Venipuncture / Unknown 05/06/2025 9:07 AM COSTUME TECHNICIAN 05/06/2025 9:21 AM COSTUME TECHNICIAN us Channing Membreno DO HEMATOLOGY ORDERABLES F inal Result Performing Organization Address City/[facility]/ZIP Co de Phone Number [facility] [address] [place] [address] * Lipase (05/06/2025 9:07 AM COSTUME TECHNICIAN) Pathologist [facility] LIPASE 16 8 - 78 U/L 05/06/2025 9:46 AM COSTUME TECHNICIAN [facility] Blood Venipuncture / Unknown 05/06/2025 9:07 AM COSTUME TECHNICIAN 05/06/2025 9:21 AM COSTUME TECHNICIAN us Channing Membreno DO CHEMISTRY ORDERABLES Fi nal Result Performing Organization Address City/[facility]/ZIP Co de Phone Number [facility] [address] [place] [address] * (ABNORMAL) CMP (Comprehensive Metabolic Panel) (05/06/2025 9:07 AM COSTUME TECHNICIAN) SODIUM 139 136 - 145 mmol/L 05/06/2025 9:46 AM COSTUME TECHNICIAN [facility] POTASSIUM 3.6 3.5 - 5.1 mmol/L 05/06/2025 9:46 AM COSTUME TECHNICIAN [facility] CHLORIDE 104 98 - 107 mmol/L 05/06/2025 9:46 AM [facility] CO2, VENOUS 21(L) 22 - 30 mmol/L 05/06/2025 9:46 AM [facility] ANION GAP 17.6 <18.0 mmol/L 05/06/2025 9:46 AM [facility] GLUCOSE 185(H) 70 - 99 mg/dL 05/06/2025 9:46 AM [facility] BUN 18 8 - 26 mg/dL 05/06/2025 9:46 AM [facility] CREATININE, BLOOD 1.04 0.70 - 1.30 mg/dL 05/06/2025 9:46 AM [facility] BUN/CREATININE RATIO 17 12 - 20 ratio 05/06/2025 9:46 AM [facility] TOTAL PROTEIN 7.9 6.0 - 8.0 g/dL 05/06/2025 9:46 AM [facility] ALBUMIN 5.1(H) 3.5 - 5.0 g/dL 05/06/2025 9:46 AM [facility] A/G RATIO 1.8 1.0 - 2.2 05/06/2025 9:46 AM [facility] CALCIUM 10.5 8.7 - 10.5 mg/dL 05/06/2025 9:46 AM [facility] T BILI 1.8(H) 0.2 - 1.2 mg/dL 05/06/2025 9:46 AM [facility] SGOT (AST) 33 <43 U/L 05/06/2025 9:46 AM [facility] SGPT (ALT) 40 <56 U/L 05/06/2025 9:46 AM [facility] ALKALINE PHOSPHATASE 74 40 - 150 U/L 05/06/2025 9:46 AM [facility] GFR, ESTIMATED >60 >=60 05/06/2025 9:46 AM [facility] Comment: Creatinine Clearance is the preferred criteria for selecting drug dose adjustments in renally impaired patients. The GFR is provided as additional pertinent clinical information. GFR is reported in mL/min/1.73 sq m. Calculation based on the 2020 Chronic Kidney Disease Epidemiology Collaboration (CKD-EPI) equation refit without adjustment for race. GFR, EST. >60 >=60 025 9:46 AM COSTUME TECHNICIAN [facility] Comment: Creatinine Clearance is the preferred criteria for selecting drug dose adjustments in renally impaired patients. The GFR is provided as additional pertinent clinical information. GFR is reported in mL/min/1.73 sq m. Calculation based on the 2009 Chronic Kidney Disease Epidemiology Collaboration (CKD-EPI). GFR, EST. NONAFRICAN >60 >=60 05/06/2025 9:46 AM COSTUME TECHNICIAN [facility] Comment: Creatinine Clearance is the preferred criteria for selecting drug dose adjustments in renally impaired patients. The GFR is provided as additional pertinent clinical information. GFR is reported in mL/min/1.73 sq m. Calculation based on the 2009 Chronic Kidney Disease Epidemiology Collaboration (CKD-EPI). Blood Venipuncture / Unknown 05/06/2025 9:07 AM COSTUME TECHNICIAN 05/06/2025 9:21 AM COSTUME TECHNICIAN us Channing Membreno DO CHEMISTRY ORDERABLES Fi nal Result [facility] [address] [place] [address] from Last 3 Months Care Teams Passenger Tire Builder Relationship Specialty Start Date End Date Provider, None [place] PCP - General 05/06/25
== END 2025-05-31 11:40 | disposition home or self-care (01) ==
LOC: ANHSURGERY 11:45
PROVIDERS: Visit Provider Surgery
DX: K81.0 Acute cholecystitis (principal); Z01.818 Encounter for other preprocedural examination
CPT/HCPCS: 36415; 80076; 82150; 83690; 93005

== ENCOUNTER 2025-06-02 01:46 | Day surgery (SDC) | payer SELFPAY ==
--- NOTE | 2025-05-26 13:10 | PC.NURSE ---
[facility] has started construction of its new state of the art ER which will open Spring 2026. With this, we anticipate parking may be a challenge for some our surgical patients and families. Parking spaces are limited but are available for all Surgical, obstetrics, and ER patients sharing this lot. If you arrive and find you are having a hard time finding a parking space, please note that we understand the challenges, please drive around the hospital and park near Hospital Entrance 1. When you enter this entrance, you can ask a volunteer to direct or take you back to the surgical waiting area to check in. We appreciate everyone?s understanding of these expected challenges while we build for your future. Report to the Outpatient Waiting Room, entrance under the green pavilion located off [address], at time __11:30 AM on date _06/02/25 . Planned Procedure Time: _1:30 PM .? Time changes happen often and if your time is changed the preop area will call you the afternoon before. - You and your visitor will be asked to self-screen and do not enter if you have any COVID symptoms. Please call surgeon if you need to reschedule. - A mask is optional within the hospital at this time. Patients may have clear liquids (water, carbonated beverages, clear teas, apple juice) until 3 hours prior to surgery( 10:30 AM) with a maximum of 20 ounces. - No food from midnight until time of surgery and no smoking, or chewing tobacco (or any form of nicotine). No chewing gum, candy or mints. - Take only the following medications with a SIP of water on the morning of surgery: ____NONE DO NOT STOP ANY OF YOUR OTHER PRESCRIPTION MEDICATIONS PRIOR TO SURGERY EXCEPT THE FOLLOWING Hold all vitamins and supplements for 3 days per anesthesiologist. Medications to discontinue per physician NONE Please no make-up, nail malay, hairspray, perfume, deodorant, or body powder the day of surgery.? No jewelry (including any body piercings) or valuables the day of surgery, leave them at home.? Please take a shower or bath the night before, or the morning of, surgery with an antibacterial soap.? Wear comfortable, loose fitting clothing.? Children are encouraged to wear pajamas. - Jewelry must be removed prior to entering the operating room.? Rings and piercings that are not removed may be cut off. - The hospital will not accept responsibility for valuables.? - Please leave all valuables, including medications, at home the day of surgery. If you are going home after surgery, a licensed hazmat truck driver must drive you home.? - NO public transportation without another adult if you receive anesthesia. - We recommend that an adult stay with you for 24 hours following discharge. - We also recommend that you do not drive, make important decision, drink alcoholic beverages, or take any drugs that were not prescribed by your health care provider for at least 24 hours after your discharge time. For Pediatric surgeries, we recommend two adults accompany the child home. Follow any additional instructions given to you from your surgeon. Telephone instructions given to ___PATIENT and asked if any additional questions and then verbalized understanding. Patient advised to call surgeon office or pre surgery nurse liaison [phone] if any additional questions.
[2025-05-26 13:30] VITALS: BMI 29.4
[2025-06-02] VITALS (11 sets, daily range): BP systolic 96–150; BP diastolic 65–90; PULSE 66–77; RESP 12–20; TEMP 36.2–37.1; O2SAT 95–100
--- OUTSIDE RECORDS SUMMARY | 2025-06-02 01:50 | XMS_ITS | Encounter Summary ---
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 Gender Identity Not on file Sexual Orientation [...] COVID: Suspected 07/03/2023 07/03/2023 07/03/2023 6:22 PM GROUND NUCLEAR WEAPONS ASSEMBLY OFFICER COVID: Suspected 07/03/2023 07/03/2023 07/03/2023 10:45 PM GROUND NUCLEAR WEAPONS ASSEMBLY OFFICER COVID: Suspected 07/31/2023 07/31/2023 07/31/2023 7:05 PM GROUND NUCLEAR WEAPONS ASSEMBLY OFFICER COVID: Suspected 07/31/2023 07/31/2023 07/31/2023 11:18 PM GROUND NUCLEAR WEAPONS ASSEMBLY OFFICER documented as of this encounter Care Teams Cross Country And Track And Field Coach Relationship Specialty Start Date End Date No, Physician PCP - General 08/20/17 documented as of this encounter
--- OUTSIDE RECORDS SUMMARY | 2025-06-02 01:50 | XMS_ITS | Clinical Summary ---
Author Organization [facility] Address [address] [place] [address] Care Team Providers Care Sfdc Developer Name Role Phone No, Physician Primary Care Provider [phone] Allergies Active Allergy Reactions Criticality Noted Date [...] Department Care Team Description 05/09/2025 3:15 PM BRAZING MACHINE FEEDER Office Visit [facility] at [address] [address] Cathy Pang NP Abdominal pain, [...] on file Legal Sex Male 8:01 PM BRAZING MACHINE FEEDER Gender Identity Not on file Sexual Orientation Not on file Last Filed Vital Signs Vital Sign Reading Time Taken Comments Blood Pressure 128/84 05/09/2025 3:21 PM BRAZING MACHINE FEEDER Pulse 111 05/09/2025 3:21 PM BRAZING MACHINE FEEDER Temperature 37.7 C (99.9 F) 05/09/2025 3:21 PM BRAZING MACHINE FEEDER Respiratory Rate 16 07/31/2023 6:44 PM BRAZING MACHINE FEEDER Oxygen Saturation 98% 05/09/2025 3:21 PM BRAZING MACHINE FEEDER Inhaled Oxygen Concentration - - Weight 97.5 kg (215 lb) 05/09/2025 3:21 PM BRAZING MACHINE FEEDER Height 177.8 cm (5' 10) 07/31/2023 6:44 PM BRAZING MACHINE FEEDER Body Mass Index 30.85 07/31/2023 6:44 PM BRAZING MACHINE FEEDER Plan of Treatment Health Maintenance Due Date [...] age to complete this topic Care Teams Sfdc Developer Relationship Specialty Start Date End Date No, Physician PCP - General 08/20/17
--- OUTSIDE RECORDS SUMMARY | 2025-06-02 01:50 | XMS_ITS | Clinical Summary ---
Author Organization [facility] Address [address] [place] [address] Phone Care Team Providers Care Table Operator Name Role Phone Provider, None Primary [...] Department Care Team Description 05/06/2025 8:41 AM ABLE BODIED TANKERMAN - 05/06/2025 11:03 AM ABLE BODIED TANKERMAN Emergency [facility] Emergency [address] [place] [address] Channing Membreno DO Abdominal pain, [...] Comments Blood Pressure 154/80 05/06/2025 11:00 AM ABLE BODIED TANKERMAN Pulse 73 05/06/2025 11:00 AM ABLE BODIED TANKERMAN Temperature 36.8 C (98.3 F) 05/06/2025 11:00 AM ABLE BODIED TANKERMAN Respiratory Rate 18 05/06/2025 11:00 AM ABLE BODIED TANKERMAN Oxygen Saturation 99% 05/06/2025 11:00 AM ABLE BODIED TANKERMAN Inhaled Oxygen Concentration - - Weight 97.1 kg (214 lb) 05/06/2025 8:45 AM ABLE BODIED TANKERMAN Height 177.8 cm (5' 10) 05/06/2025 8:45 AM ABLE BODIED TANKERMAN Body Mass Index 30.71 05/06/2025 8:45 AM ABLE BODIED TANKERMAN Plan of Treatment Health Maintenance Due Date [...] BY ABNORMAL RESULTS STAT 05/06/2025 10:[address] ABDOMEN PELVIS W/ CONTRAST Stat with Interpretation 05/06/2025 10:11 AM ABLE BODIED TANKERMAN GOLD TOP TUBE STAT 05/06/2025 9:07 AM ABLE BODIED TANKERMAN BLUE TOP TUBE STAT 05/06/2025 9:07 AM ABLE BODIED TANKERMAN CBC WITH AUTO DIFFERENTIAL STAT 05/06/2025 9:07 AM ABLE BODIED TANKERMAN EXTRA TUBES STAT 05/06/2025 9:07 AM ABLE BODIED TANKERMAN LIPASE STAT 05/06/2025 9:07 AM ABLE BODIED TANKERMAN COMPLETE BLOOD COUNT (CBC) WITH DIFF STAT 05/06/2025 9:07 AM ABLE BODIED TANKERMAN CMP (COMPREHENSIVE METABOLIC PANEL) STAT 05/06/2025 9:07 AM ABLE BODIED TANKERMAN from Last 3 Months Results * (ABNORMAL) Urinalysis Reflex if Indicated by Abnormal Results (05/06/2025 10:25 AM ABLE BODIED TANKERMAN) SPECIFIC GRAVITY 1.010 1.003 - 1.030 05/06/2025 10:49 AM ABLE BODIED TANKERMAN [facility] URINE PH 8.0 5.0 - 9.0 05/06/2025 10:49 AM ABLE BODIED TANKERMAN [facility] WBC ESTERASE Negative Negative 05/06/2025 10:49 AM ABLE BODIED TANKERMAN [facility] NITRITE Negative Negative 05/06/2025 10:49 AM ABLE BODIED TANKERMAN [facility] PROTEIN, RANDOM URINE Negative Negative 05/06/2025 10:49 AM [facility] URINE GLUCOSE, QUAL 250 mg/dL(A) Negative 05/06/2025 10:49 AM [facility] URINE KETONES 15 mg/dL(A) Negative 05/06/2025 10:49 AM ABLE BODIED TANKERMAN [facility] UROBILINOGEN Normal Normal mg/dL 05/06/2025 10:49 AM ABLE BODIED TANKERMAN [facility] URINE BLOOD Negative Negative vipul/ul 05/06/2025 10:49 AM [facility] URINALYSIS COLOR Yellow 05/06/20 10:49 AM [facility] URINALYSIS CLARITY Clear 05/06/2025 10:49 AM [facility] Urine URINE SPECIMEN / Unknown Non-Phlebotomy Collection / Unknown 05/06/2025 10:25 AM ABLE BODIED TANKERMAN 05/06/2025 10:43 AM ABLE BODIED TANKERMAN us Channing Membreno DO URINE ORDERABLES Final Result [facility] [address] [place] [address] * CT ABDOMEN PELVIS W/ CONTRAST (05/06/2025 10:11 AM ABLE BODIED TANKERMAN) Anatomical Region Laterality Modality Abdomen N/A Computed Tomogra phy 05/06/2025 10:1 1 AM ABLE BODIED TANKERMAN Impressions 05/06/2025 10:26 AM ABLE BODIED TANKERMAN IMPRESSION: No acute finding. Narrative 05/06/2025 10:26 [address] [address] [address] CT ABDOMEN PELVIS W/ CONTRAST : 05/06/2025 10:11 AM DICTATING PHYSICIAN: BERTA REYES [facility]. HISTORY: As below. ADDITIONAL TECHNOLOGIST [...] 05/06/2025 10:11 AM DICTATING PHYSICIAN: BERTA REYES [facility]. HISTORY: As below. ADDITIONAL TECHNOLOGIST HISTORY: [...] * Gold Top Tube (05/06/2025 9:07 AM ABLE BODIED TANKERMAN) Blood No Phlebotomy Charged / Unknown 05/06/2025 9:07 AM ABLE BODIED TANKERMAN 05/06/2025 9:22 AM ABLE BODIED TANKERMAN us Channing Membreno DO CHEMISTRY ORDERABLES Fi nal Result Performing Organization Address [facility]/ZIP Co de Phone Number [facility] [address] [place] [address] * Blue Top Tube (05/06/2025 9:07 AM ABLE BODIED TANKERMAN) Blood No Phlebotomy Charged / Unknown 05/06/2025 9:07 AM ABLE BODIED TANKERMAN 05/06/2025 9:22 AM ABLE BODIED TANKERMAN Channing Membreno DO HEMATOLOGY ORDERABLES F inal Result Performing Organization Address [facility] Co de Phone Number [facility] [address] [place] [address] * (ABNORMAL) CBC with Auto Differential (05/06/2025 9:07 AM ABLE BODIED TANKERMAN) WBC 7.07 4.00 - 12.00 10(3)/mcL 05/06/2025 9:27 AM ABLE BODIED TANKERMAN [facility] RBC 5.51 4.40 - 5.80 10(6)/mcL 05/06/2025 9:27 AM ABLE BODIED TANKERMAN [facility] HEMOGLOBIN (HGB) 16.6(H) 13.0 - 16.5 g/dL 05/06/2025 9:27 AM ABLE BODIED TANKERMAN [facility] HEMATOCRIT (HCT) 46.9 38.0 - 50.0 % 05/06/2025 9:27 AM ABLE BODIED TANKERMAN [facility] MCV 85.1 82.0 - 96.0 fL 05/06/2025 9:27 AM [facility] MCH 30.1 26.0 - 32.0 pg 05/06/2025 9:27 AM [facility] MCHC 35.4 31.0 - 36.0 g/dL 05/06/2025 9:27 AM [facility] PLATELET COUNT 180 140 - 440 10(3)/mcL 05/06/2025 9:27 AM [facility] RDW 11.8 11.8 - 15.5 % 05/06/2025 9:27 AM [facility] MPV 10.2 8.0 - 12.6 fL 05/06/2025 9:27 AM [facility] NEUTROPHILS 75.7(H) 40.0 - 68.0 % 05/06/2025 9:27 AM [facility] LYMPHOCYTES 16.1(L) 19.0 - 49.0 % 05/06/2025 9:27 AM [facility] MONOCYTES 6.4 3.0 - 13.0 % 05/06/2025 9:27 AM [facility] EOSINOPHILS 1.1 0.0 - 8.0 % 05/06/2025 9:27 AM [facility] BASOPHILS 0.4 0.0 - 1.0 % 05/06/2025 9:27 AM [facility] IMMATURE GRANULOCYTE 0.3 0.0 - 0.4 % 05/06/2025 9:27 AM [facility] ABSOLUTE NEUTROPHILS 5.35(H) 1.40 - 5.30 10(3)/mcL 05/06/2025 9:27 AM [facility] ABSOLUTE LYMPHOCYTES 1.14 0.90 - 3.30 10(3)/mcL 05/06/2025 9:27 AM [facility] ABSOLUTE MONOCYTES 0.45 0.10 - 0.90 10(3)/mcL 05/06/2025 9:27 AM [facility] ABSOLUTE EOSINOPHIL 0.08 0.00 - 0.50 10(3)/mcL 05/06/2025 9:27 AM ABLE BODIED TANKERMAN [facility] ABSOLUTE BASOPHILS 0.03 0.00 - 0.10 10(3)/mcL 05/06/2025 9:27 AM ABLE BODIED TANKERMAN [facility] ABSOLUTE IMMATURE GRANULOCYTE 0.02 0.00 - 0.03 10 (3) mcL. 05/06/2025 9:27 AM ABLE BODIED TANKERMAN [facility] NRBC PER 100 WBC 0 05/06/20 9:27 AM ABLE BODIED TANKERMAN [facility] Blood Venipuncture / Unknown 05/06/2025 9:07 AM ABLE BODIED TANKERMAN 05/06/2025 9:21 AM ABLE BODIED TANKERMAN us Channing Membreno DO HEMATOLOGY ORDERABLES F inal Result Performing Organization Address City/[facility]/ZIP Co de Phone Number [facility] [address] [place] [address] * Lipase (05/06/2025 9:07 AM ABLE BODIED TANKERMAN) Pathologist [facility] LIPASE 16 8 - 78 U/L 05/06/2025 9:46 AM ABLE BODIED TANKERMAN [facility] Blood Venipuncture / Unknown 05/06/2025 9:07 AM ABLE BODIED TANKERMAN 05/06/2025 9:21 AM ABLE BODIED TANKERMAN us Channing Membreno DO CHEMISTRY ORDERABLES Fi nal Result Performing Organization Address City/[facility]/ZIP Co de Phone Number [facility] [address] [place] [address] * (ABNORMAL) CMP (Comprehensive Metabolic Panel) (05/06/2025 9:07 AM ABLE BODIED TANKERMAN) SODIUM 139 136 - 145 mmol/L 05/06/2025 9:46 AM ABLE BODIED TANKERMAN [facility] POTASSIUM 3.6 3.5 - 5.1 mmol/L 05/06/2025 9:46 AM ABLE BODIED TANKERMAN [facility] CHLORIDE 104 98 - 107 mmol/L 05/06/2025 9:46 AM [facility] CO2, VENOUS 21(L) 22 - 30 mmol/L 05/06/2025 9:46 AM [facility] ANION GAP 17.6 <18.0 mmol/L 05/06/2025 9:46 AM [facility] GLUCOSE 185(H) 70 - 99 mg/dL 05/06/2025 9:46 AM [facility] BUN 18 8 - 26 mg/dL 05/06/2025 9:46 AM [facility] CREATININE, BLOOD 1.04 0.70 - 1.30 mg/dL 05/06/2025 9:46 AM [facility] BUN/CREATININE RATIO 17 12 - 20 ratio 05/06/2025 9:46 AM [facility] TOTAL PROTEIN 7.9 6.0 - 8.0 g/dL 05/06/2025 9:46 AM [facility] ALBUMIN 5.1(H) 3.5 - 5.0 g/dL 05/06/2025 9:46 AM [facility] A/G RATIO 1.8 1.0 - 2.2 05/06/2025 9:46 AM [facility] CALCIUM 10.5 8.7 - 10.5 mg/dL 05/06/2025 9:46 AM [facility] T BILI 1.8(H) 0.2 - 1.2 mg/dL 05/06/2025 9:46 AM [facility] SGOT (AST) 33 <43 U/L 05/06/2025 9:46 AM [facility] SGPT (ALT) 40 <56 U/L 05/06/2025 9:46 AM [facility] ALKALINE PHOSPHATASE 74 40 - 150 U/L 05/06/2025 9:46 AM [facility] GFR, ESTIMATED >60 >=60 05/06/2025 9:46 AM [facility] Comment: Creatinine Clearance is the preferred criteria for selecting drug dose adjustments in renally impaired patients. The GFR is provided as additional pertinent clinical information. GFR is reported in mL/min/1.73 sq m. Calculation based on the 2020 Chronic Kidney Disease Epidemiology Collaboration (CKD-EPI) equation refit without adjustment for race. GFR, EST. >60 >=60 025 9:46 AM ABLE BODIED TANKERMAN [facility] Comment: Creatinine Clearance is the preferred criteria for selecting drug dose adjustments in renally impaired patients. The GFR is provided as additional pertinent clinical information. GFR is reported in mL/min/1.73 sq m. Calculation based on the 2009 Chronic Kidney Disease Epidemiology Collaboration (CKD-EPI). GFR, EST. NONAFRICAN >60 >=60 05/06/2025 9:46 AM ABLE BODIED TANKERMAN [facility] Comment: Creatinine Clearance is the preferred criteria for selecting drug dose adjustments in renally impaired patients. The GFR is provided as additional pertinent clinical information. GFR is reported in mL/min/1.73 sq m. Calculation based on the 2009 Chronic Kidney Disease Epidemiology Collaboration (CKD-EPI). Blood Venipuncture / Unknown 05/06/2025 9:07 AM ABLE BODIED TANKERMAN 05/06/2025 9:21 AM ABLE BODIED TANKERMAN us Channing Membreno DO CHEMISTRY ORDERABLES Fi nal Result [facility] [address] [place] [address] from Last 3 Months Care Teams Table Operator Relationship Specialty Start Date End Date Provider, None [place] PCP - General 05/06/25
--- NOTE | 2025-06-02 11:31 | WPDHPUPDATE1 ---
History and Physical Update Update Date/Time: 06/02/25 11:31 History and Physical has been reviewed, including an updated exam of the patient. There are NO changes in the patient's condition. Risks, benefits, and alternatives have been discussed and questions answered. Patient agrees to proceed with procedure.
[2025-06-02] MEDS: ACETAMINOPHEN 500 MG TABLET 1000 MG PO (12:26)
[2025-06-02] MEDS: KETOROLAC 15 MG/ML VIAL (*BKC) IV PUSH (12:35)
--- NOTE | 2025-06-02 12:57 | P.PNAN_ITS ---
Anes - Initial Pre Proc Eval Procedure: Operation Date: 06/02/25 13:30 Proposed Procedures p Laparoscopic Cholecystectomy - Nneka Jameson MD Date/Time: 06/02/25 12:57 Surgeon: Nneka Jameson MD Pre Op Diagnosis: acute gangrenous cholecystitis Patient Data Age: 55 Gender: M Height: 1.78 m Weight: 90.3 kg Last Vital Signs Temp 37.1 C 06/02/25 12:37 Pulse 75 06/02/25 12:37 Resp 16 06/02/25 12:37 BP 148/90 H 06/02/25 12:37 Pulse Ox 99 06/02/25 12:37 O2 Del Method Room Air 06/02/25 12:37 Allergies Allergy/AdvReac Type Severity Reaction Status Date / Time Cephalosporins Allergy Mild Joint Pain Verified 05/26/25 13:13 Home Medications ?Medication ?Instructions ?Recorded ?Confirmed ?Type blood sugar diagnostic (BluLink #100 ea 09/13/2305/26 Rx Glucose Test Strip) blood-glucose meter (BluLink #1 ea 09/13/23 05/26/25 R x Glucose Monitoring System) lancets 30 gauge #100 ea 09/13/23 05/26/25 Rx pen needle, diabetic 31 gauge x #100 ea 09/13/2305/26 Rx 5/16 (CareTouch Pen Needle) metformin 750 mg tablet,extended 750 mg PO BID #180 ta bs 04/16/24 05/26/25 Rx release 24 hr lisinopril 20 1 tablet PO DAILY #90 tabs 1 07/21/23 05/26/25 Rx mg-hydrochlorothiazide 12.5 mg tablet atorvastatin 40 mg tablet 40 mg PO QHS #90 tabs 05/26/25 Rx insulin glargine 100 unit/mL (3 10 unit subcut HS 05/0105/26/25 History mL) subcutaneous pen (Basaglar KwikPen U-100 Insulin) Laboratory Tests 06/02/25 12:10 POC Capillary Glucose 133 H mg/dl (65-105) Patient hx anesthesia problems: none Family hx anesthesia problems: none Results Review: All pre-operative results and documents have been reviewed as part of the pre- operative evaluation. [facility] Past Medical History Medical History Diabetic retinopathy Type 2 diabetes mellitus treated with insulin Diabetic neuropathy Low back pain with sciatica Right sided sciatica Allergic rhinitis Obesity (BMI 30.0-34.9) Hypertension Surgical History Surgical History Normal screening colonoscopy (10/2023) History of laparoscopic appendectomy (10/30/23) Dr. Cunha Family History Family History Father Diabetes mellitus Myocardial infarct Hypertension Liver cancer Age older than 80 years CKD (chronic kidney disease) Mother Hypertension Thyroid disorder Lung cancer Sibling Non-alcoholic cirrhosis Hemolytic anemia Other Cerebrovascular accident Social History Social History Social History: The patient is single and lives alone. He is a lifelong nonsmoker and rarely drinks alcohol only in small amounts. 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 He denies any illicit substance use. He is a lifelong nonsmoker. He does not have any pets. Code status: Full code (he would not want tracheostomy, long-term ventilator support or a G-tube) Surrogate decision maker: Patient chooses his father or brother has his surrogate decision maker. 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 Gender identity (if verbalized by the patient): Male Sexual Orientation (if Verbalized by the Patient): Straight or Heterosexual Spiritual care concerns: No Agree to blood products: No Anes - Eval Final PreProcedure Day of Procedure 06/02/25 12:57 Patient weight: overweight Heart: regular rate and rhythm Lungs: clear to auscultation Airway: Mallampati scale class II Neurological: alert and oriented Last oral intake: >/= 8 hours ASA classification: III Emergent: no Anesthetic plan: proceed Anesthesia type and monitoring: general ETT and standard monitoring Results Review: All pre-operative results and documents have been reviewed as part of the pre- operative evaluation. Informed Consent: The patient's anesthetic plan and its attendant risks and benefits were discussed with the patient/family/POA. Questions were solicited and answers provided to the satisfaction of the patient/family/POA.
[2025-06-02] MEDS: CLINDAMYCIN 900 MG/D5W 50 ML 900 MG/50 ML PIGGYBACK 50 MG IVPB (13:01)
[2025-06-02] MEDS: BUPIVACAINE/EPINEPHRINE 0.5% 50 ML VIAL 30 ML INFILTRATE (13:34)
--- NOTE | 2025-06-02 13:52 | S_PTH ---
PATIENT: Sergio Carlton LOC: [facility] U#:[id number] AGE/SX: 55/M ROOM: RE06/02/[address]: Nneka Jameson MD : 1970 BED: DIS: 06/02/2025 SPEC #: [id number] RECD: 06/03/25 08:09 STATUS: ALFONSO RELisa #: [id number] MALLIKA: 06/02/25 13:[address]: Nneka Jameson DEPT: [facility] Surgical RECD BY: Maryjane Bello ENTERED: 06/03/25 08:10 SP TYPE: Surgical OTHR DR: CUSTOMER SALES CONSULTANT PHYSICIAN Tissues: A - Gallbladder Procedures: Hematoxylin and Eosin Stain Gross and Microscopic Level 3
[2025-06-02] MEDS: LACTATED RINGERS 1,000 ML 30 ML IV CONT (14:09)
--- NOTE | 2025-06-02 14:33 | W.PM.PROC2 ---
Procedure Note - Detailed Date of Procedure 06/02/25 Pre-op Diagnosis acute gangrenous cholecystitis Post-op Diagnosis Same Procedure Performed Laparoscopic cholecystectomy Surgeon Nneka Jameson MD Anesthesia General and Local Indications 55-year-old male initially presented with acute gangrenous cholecystitis. The patient was treated conservatively with IV antibiotics and subsequent p.o. antibiotics at home. The patient has been on a low-fat diet and his symptoms have largely resolved. At this time the patient is set up for interval cholecystectomy Findings gangrenous cholecystitis with cholelithiasis Description of Procedure The patient was taken to the operating room placed in the supine position. After adequate induction of general anesthesia, the patient was prepped and draped in normal sterile fashion. A time-out was then performed to verify the patient's identity as well as the procedure being performed. I then made a 5 mm incision in the infraumbilical region. Through this, a Veress needle was placed into the peritoneal cavity and CO2 gas was then insufflated. After adequate pneumoperitoneum was achieved, the Veress needle was removed and a 5 mm optiview trocar was placed through this incision under direct visualization. I then placed the laparoscope through this trocar site and under direct visualization placed a further 12 mm subxiphoid port as well as 2 additional 5 mm ports in the right upper abdomen. There was a large inflammatory mass in the right upper quadrant. Using careful dissection both bluntly and with the Bovie cautery I was able to take down the omental adhesions to the gallbladder. The gallbladder was then identified and noted to be quite distended and inflamed. Given the amount of inflammation, the gallbladder was decompressed with an ovarian needle. Very thick sludge was decompressed from the gallbladder. Once decompressed, I was able to place a grasper at the dome of the gallbladder and this was retracted anterior and cephalad up over the liver. A 2nd retractor was then placed at the infundibulum and retracted laterally, this allowed visualization of the triangle of Calot. I then was able to visualize the cystic duct in its entirety from its proximal insertion into the gallbladder, to its distal junction with the common hepatic/common bile duct junction. At this point, I carefully skeletonized the proximal cystic duct with the [place] dissector. I then clipped and transected the proximal cystic duct. Next I visualized the cystic artery. Again the artery was skeletonized, clipped, and transected. I then used the Bovie cautery to take down the peritoneal attachments of the gallbladder off the liver bed. This was difficult given the amount of inflammation in the posterior space. There was also evidence of necrosis of the back wall of the gallbladder. Once the gallbladder specimen was completely detached, an endo-pouch was placed through the 12 mm port site. I then placed the gallbladder specimen into the Endo pouch and removed the endo-pouch from the 12 mm port site. The specimen will now be sent to pathology for further review. I then copiously irrigated the right upper quadrant. Hemostasis was noted in the liver bed, the clips were noted to be in good position on both the cystic duct stump and the cystic artery stump. No other pathology was noted in the right upper quadrant. I then moved the laparoscope to the subxiphoid port. No iatrogenic injury or other pathology was noted in the lower abdomen. I then closed the 12 mm trocar site under direct visualization using the Ok cone and 0 Vicryl suture. At this point, the abdomen was desufflated and all ports removed. All port sites were then closed with 4.O Monocryl subcuticular sutures. Dermabond was placed on each incision. The patient tolerated the procedure well, was extubated in the operating room postoperative and will be transferred to the recovery room in stable condition Estimated Blood Loss 10 Drains No Packing No Pathology Yes Complications No immediate complications Condition Stable Disposition PACU [facility] Billing Surgery - Charge Forward: Surgery Billing
[2025-06-02] MEDS: fentaNYL CITRATE INJ (*CRX) 100 MCG/2 ML VIAL 25 MCG IV PUSH (14:50)
[2025-06-02] MEDS: oxyCODONE HCL (*CRX) 5 MG TAB IR PO (16:02)
== END 2025-06-02 17:05 | disposition home or self-care (01) ==
PROVIDERS: Visit Provider Surgery
PROC: 0FT44ZZ Resection of Gallbladder, Percutaneous Endoscopic Approach (ICD-10-PCS; CPT 47562; principal; 2025-06-02 13:30)
DX: K80.18 Calculus of gallbladder with other cholecystitis without obstruction (principal); K82.A1 Gangrene of gallbladder in cholecystitis; K66.0 Peritoneal adhesions (postprocedural) (postinfection); I10 Essential (primary) hypertension; E11.40 Type 2 diabetes mellitus with diabetic neuropathy, unspecified; E11.319 Type 2 diabetes mellitus with unspecified diabetic retinopathy without macular edema; Z79.4 Long term (current) use of insulin; Z79.84 Long term (current) use of oral hypoglycemic drugs; Z98.890 Other specified postprocedural states; Z80.0 Family history of malignant neoplasm of digestive organs; Z80.1 Family history of malignant neoplasm of trachea, bronchus and lung; Z82.49 Family history of ischemic heart disease and other diseases of the circulatory system
CPT/HCPCS: 47562; 82948; 88304; A9270; J1100; J1885; J2250; J2270; J2371; J2405; J2704; J3010; J7030; J7120